=== PATIENT | female | born 1995 | race Caucasian/White ===

== ENCOUNTER 2020-10-14 18:42 | Emergency (ER) | payer MEDICAID, SELFPAY ==
[2020-10-14 18:44] VITALS: BP 155/68; PULSE 101; RESP 16; TEMP 36.8; O2SAT 99; BMI 17.4
--- NOTE | 2020-10-14 19:21 | HMH.EDGENADL ---
ED Disposition Clinical Impression: First trimester bleeding Disposition: Still a Patient Condition on Discharge: Good Referrals: Marcos Brooks APRN [Primary Care Provider] - - Critical Care Critical Care Time: No Attestation: On 10/14/20, the high probability of a clinically significant, sudden or life threatening deterioration of the following system(s) required my full and direct attention, intervention and personal management. The time I documented below is in addition to time spent performing reported procedures but includes the following listed in this critical care notation. Medical Decision Making - Medical Records Medical records reviewed: Yes: I reviewed the patient's medical records. - Rodrigo Inquiry Pt receiving controlled substance: No Vital Signs: 10/14/20 18:44 Temperature 98.3 F Temperature Source Oral Pulse Rate [Right] 101 H Respiratory Rate 16 Blood Pressure [Right Arm] 155/68 H Blood Pressure Mean [Right Arm] 97 Blood Pressure Source [Right Arm] Automatic Cuff 02 Sat by Pulse Oximetry 99 Oxygen Delivery Method Room Air Orders (Tests/Meds): ORDERS Category Date Time Status Complete Blood Count Auto Diff Stat Lab 10/14/20 18:56 Ordered Urinalysis and Microscopic Stat Lab 10/14/20 18:56 Ordered Urine , HCG Qual. Stat Lab 10/14/20 18:56 Ordered Medical Decision Narrative: 25yo F presents the emergency department after 1 episode of painless vaginal bleeding that began immediately prior to her arrival. Patient is in no acute distress, of being somewhat emotional upon arrival. Discussed that I do not have ultrasound at this time of day to which the patient becomes more emotional and states I just want to go home and should have never come here. Her family member encouraged her to remain calm. We will complete basic blood work, urine test and UA. Case will be signed out to oncoming physician at shift change. General Adult HPI - General Chief complaint: Vaginal Bleeding Stated complaint: 8 Wk Preg Bleeding Time Seen by Provider: 10/14/20 19:21 Mode of Arrival: Family Vehicle Limitations: No Limitations Description of Symptoms (Recalled from ER Triage Doc. by RN): Pt states that she is about 8 wks with her 3rd child, and [employer] she was wiping and noticed the tissue was red with pea sized clots. Pt denies any pain, cramping, N/V/D, or recent trauma to ABD. Pt thinks she is A+, she denies receiving any Rhogam injections during her previous pregnancies. - History of Present Illness HPI narrative: 25yo F that believe she is 8 weeks presents the emergency department secondary to painless vaginal bleeding that began just a few moments ago. Patient denies any trauma. She denies any recent illness. Patient reports her previous 2 pregnancies have been uncomplicated with both children being delivered during week 37 spontaneously. - Related Data Previous Rx's Medication Instructions Recorded cephALEXin [Keflex 500mg Cap] 500 mg PO TID #30 cap 11/10/18 Allergies Allergy/AdvReac Type Severity Reaction Status Date / Time No Known Allergies Allergy Verified 12/01/17 17:51 [facility] History - Hepatitis A Screen Drug use history?: No High risk sexual behaviors?: No History of sexually transmitted infection?: No Currently employed?: No Childcare worker?: No Do you have indoor plumbing?: Yes Do you have electricity?: Yes Attestation statement:: This patient has been screened for Hepatitis A risk factors. I have reviewed the patient's past medical history: Yes Medical History: Denies:: Diabetes Mellitus Type 1, Diabetes Mellitus Type 2 - Social History Alcohol Intake: never Occupational Status: employed Family Hx:: Non-contributory ROS Obtained: Yes All systems reviewed & no additional complaints - Genitourinary Male Genitourinary: Reports as per HPI Physical Exam - General General appearance: alert, in no appare
[2020-10-14 20:11] LABS: Microscopic, Urine URINE MICROSCOPIC (MICROSCOPIC)
[2020-10-14 20:16] LABS: Urine Pregnancy, HCG Qual. Positive (Negative)
[2020-10-14 20:17] LABS: Bilirubin,Urine Negative (Negative); Blood, Urine 3+ (Negative); Glucose,Urine (UA) Negative (Negative); Ketones,Urine Negative (Negative); Leukocyte Esterase,Urine 2+ (Negative); Nitrate,Urine Negative (Negative); Protein,Urine TRACE (Negative); Specific Gravity, Urine 1.015 (1.005-1.030); Urobilinogen,Urine 0.2 EU/dl (0.2)
[2020-10-14 20:18] LABS: Appearance,Urine Slightly Cloudy (Clear); Color,Urine Straw (Yellow)
[2020-10-14 20:37] LABS: Bacteria,Urine 1+ /lpf; Mucus,Urine 1+ /lpf
--- NOTE | 2020-10-14 21:33 | PC.NURSE ---
Notified lab on the need for lab draw, order placed at 1207.
[2020-10-14 21:53] LABS: Basophils % 0.5 % (0.1-2.0); Eosinophils # 0.1 K/mm3 (0.0-0.4); Eosinophils % 1.3 % (0.1-12.0); Hematocrit 36.3 % (37.0-47.0); Hemoglobin 11.5 g/dL (12.2-16.2); Lymphocytes # 1.7 K/mm3 (0.7-4.5); Lymphocytes % 20.6 % (10-50); Mean Corpuscular HGB Conc 31.7 g/dL (31.8-35.4); Mean Corpuscular Hemoglobin 25.1 pg (27.0-31.2); Mean Corpuscular Volume 79.2 fl (81-99); Mean Platelet Volume 10.3 fl (7.4-10.4); Monocytes # 0.5 K/mm3 (0.1-1.0); Monocytes % 6.2 % (1.7-9.3); Neutrophils # 5.8 K/mm3 (1.8-7.8); Neutrophils % 71.4 % (37.0-80.0); Platelet Count 201 K/mm3 (142-424); Red Blood Count 4.58 M/mm3 (4.20-5.40); Red Cell Distribution Width 15.2 % (11.5-17.5); White Blood Count 8.1 K/mm3 (4.8-10.8)
[2020-10-14 22:40] VITALS: BP 135/67; PULSE 90; RESP 16; TEMP 36.7; O2SAT 9
== END 2020-10-14 22:41 | disposition home or self-care (01) ==
PROVIDERS: Family Medicine; Emergency Provider Emergency Medicine; PCP Nurse Practitioner Family
DX: O20.9 Hemorrhage in early pregnancy, unspecified (principal); Z3A.08 8 weeks gestation of pregnancy; D64.9 Anemia, unspecified
CPT/HCPCS: 81001; 81025; 85025; 87086; 99282

== ENCOUNTER → 2020-10-15 10:47 | Outpatient (CLI) | payer MEDICAID, SELFPAY ==
[2020-10-16 10:34] LABS: HCG,Quantitative 16561 mIU/ml (0-5.42)
== END ==
PROVIDERS: Visit Provider Obstetrics & Gynecology
DX: Z34.90 Encounter for supervision of normal pregnancy, unspecified, unspecified trimester (principal)
CPT/HCPCS: 36415; 84702

== ENCOUNTER → 2020-10-18 13:54 | Outpatient (CLI) | payer MEDICAID, SELFPAY ==
[2020-10-18 15:09] LABS: HCG,Quantitative 1763 mIU/ml (0-5.42)
== END ==
PROVIDERS: Visit Provider Obstetrics & Gynecology
DX: Z34.90 Encounter for supervision of normal pregnancy, unspecified, unspecified trimester (principal)
CPT/HCPCS: 36415; 84702

== ENCOUNTER → 2020-10-24 11:27 | Outpatient (CLI) | payer MEDICAID, SELFPAY ==
[2020-10-24 13:09] LABS: HCG,Quantitative 150 mIU/ml (0-5.42)
== END ==
PROVIDERS: Visit Provider Obstetrics & Gynecology
DX: O02.1 Missed abortion (principal)
CPT/HCPCS: 36415; 84702

== ENCOUNTER → 2021-09-12 14:06 | Outpatient (CLI) | payer MEDICAID, SELFPAY | PROVIDERS: Visit Provider Obstetrics & Gynecology | DX: N92.6 Irregular menstruation, unspecified (principal) | CPT/HCPCS: 36415; 84702 ==

== ENCOUNTER → 2021-10-22 15:39 | Outpatient (CLI) | payer MEDICAID, SELFPAY ==
[2021-10-22 16:31] LABS: Basophils % 0.3 % (0.1-2.0); Eosinophils # 0.1 K/mm3 (0.0-0.4); Eosinophils % 1.8 % (0.1-12.0); Hematocrit 32.2 % (37.0-47.0); Hemoglobin 10.4 g/dL (12.2-16.2); Lymphocytes # 1.5 K/mm3 (0.7-4.5); Mean Corpuscular HGB Conc 32.3 g/dL (31.8-35.4); Mean Corpuscular Hemoglobin 24.6 pg (27.0-31.2); Mean Corpuscular Volume 76.3 fl (81-99); Mean Platelet Volume 9.7 fl (7.4-10.4); Monocytes # 0.5 K/mm3 (0.1-1.0); Monocytes % 6.4 % (1.7-9.3); Neutrophils # 5.3 K/mm3 (1.8-7.8); Neutrophils % 71.5 % (37.0-80.0); Platelet Count 201 K/mm3 (142-424); Red Blood Count 4.21 M/mm3 (4.20-5.40); Red Cell Distribution Width 15.2 % (11.5-17.5); White Blood Count 7.4 K/mm3 (4.8-10.8)
[2021-10-24 08:15] LABS: HIV Screen 4th Generation wRfx Non Reactive (Non Reactive); Rubella Antibodies, IgG 2.92 index (Immune >0.99)
[2021-10-24 10:18] LABS: Hepatitis B Surface Antigen Negative (Negative); Hepatitis C Antibody <0.1 s/co ratio (0.0-0.9)
[2021-10-24 11:28] LABS: Rapid Plasma Reagin Ab Titer Non Reactive (NonRea<1:1)
== END ==
PROVIDERS: Visit Provider Obstetrics & Gynecology
DX: Z34.90 Encounter for supervision of normal pregnancy, unspecified, unspecified trimester (principal)
CPT/HCPCS: 36415; 85025; 86592; 86703; 86762; 86850; 87340; 87380; G0432

== ENCOUNTER → 2021-10-28 14:23 | Outpatient (CLI) | payer MEDICAID, SELFPAY | PROVIDERS: Visit Provider Obstetrics & Gynecology | DX: Z31.430 Encounter of female for testing for genetic disease carrier status for procreative management (principal); Z36.0 Encounter for antenatal screening for chromosomal anomalies; O28.3 Abnormal ultrasonic finding on antenatal screening of mother | CPT/HCPCS: 36415 ==

== ENCOUNTER 2021-11-19 19:46 | Emergency (ER) | payer MEDICAID, SELFPAY ==
[2021-11-19 19:47] VITALS: BP 120/74; PULSE 122; RESP 20; TEMP 37.7; O2SAT 100; BMI 14.8
--- NOTE | 2021-11-19 20:43 | PC.NURSE ---
Pt complains of severe pain, RN notified.
[2021-11-19 20:44] LABS: Microscopic, Urine URINE MICROSCOPIC (MICROSCOPIC)
--- NOTE | 2021-11-19 20:44 | HMH.EDGENADL ---
ED Disposition Clinical Impression: UTI (urinary tract infection) Disposition: Home, Self-Care Condition on Discharge: Fair Instructions: DI for Urinary Tract Infection (UTI) Additional Instructions: Please call and schedule an appointment to follow-up with your OB in 2 days. Take your medication as prescribed. If new or worsening symptoms do not hesitate to return to the emergency department. Prescriptions: Nitrofurantoin Monohyd/M-Cryst [Macrobid 100 mg Capsule] 100 mg PO BID 7 Days #14 cap Transmission Status: Received by [id number] Referrals: Rohan Rollins MD [Primary Care Provider] - - Critical Care Critical Care Time: No Attestation: On 11/19/21, the high probability of a clinically significant, sudden or life threatening deterioration of the following system(s) required my full and direct attention, intervention and personal management. The time I documented below is in addition to time spent performing reported procedures but includes the following listed in this critical care notation. Medical Decision Making - Medical Records Medical records reviewed: Yes: I reviewed the patient's medical records. - Rodrigo Inquiry Pt receiving controlled substance: No Vital Signs: 11/19/21 19:47 11/19/21 22:21 Temperature 99.8 F H 98.2 F Temperature Source Oral Oral Pulse Rate 118 H Pulse Rate [Right] 122 H Respiratory Rate 20 18 Blood Pressure 120/72 Blood Pressure [Right Arm] 120/74 Blood Pressure Mean [Right Arm] 89 Blood Pressure Source Automatic Cuff Blood Pressure Position Sitting 02 Sat by Pulse Oximetry 100 Oxygen Delivery Method Room Air - Lab Data Lab Results 11/19/21 20:03: Urine Color Yellow, Urine Appearance Clear, Urine pH 6.0, Ur Specific [place] <= 1.005, Urine Protein Negative, Urine Glucose (UA) Negative, Urine Ketones 1+, Urine Blood Negative, Urine Nitrate Negative, Urine Bilirubin Negative, Urine Urobilinogen 0.2, Ur Leukocyte Esterase 2+ A, Urine RBC None, Urine WBC 5-10, Ur Squamous Epith Cells 5-10, Urine Bacteria 1+ 11/19/21 21:05: WBC 4.5 L, RBC 3.58 L, Hgb 9.2 L, Hct 28.8 L, MCV 80.4 L, MCH 25.8 L, MCHC 32.1, RDW 16.0, Plt Count 138 L, MPV 11.8 H, Neut % (Auto) 84.0 H, Lymph % (Auto) 5.8 L, [place] % (Auto) 8.8, Eos % (Auto) 0.7, Baso % (Auto) 0.8, Neut # (Auto) 3.8, Lymph # (Auto) 0.3 L, [place] # (Auto) 0.4, Eos # (Auto) 0.0, Baso # (Auto) 0.0 11/19/21 21:05: Sodium 133 L, Potassium 3.4 L, Chloride 101, Carbon Dioxide 23, Anion Gap 12.4, BUN 4 L, Creatinine 0.50 L, Estimated Creat Clear 127, Estimated GFR 147, Est GFR ( Amer) 178, Glucose 97, Calcium 9.3 Result diagrams: 11/19/21 21:05 11/19/21 21:05 Orders (Tests/Meds): ED MEDICATIONS Discontinued Medications Generic Name Dose Route Start Last Admin Trade Name Freq PRN Reason Stop Dose Admin Acetaminophen 650 mg 11/19/21 20:37 11/19/21 20:48 Acetaminophen 325mg Tab PO 11/19/21 20:38 650 mg ONCE ONE Administration Nitrofurantoin Macrocrystals 100 mg 11/19/21 21:41 11/19/21 21:44 Nitrofurantoin 100mg Capsule PO 11/19/21 21:42 100 mg ONCE ONE Administration ORDERS Category Date Time Status Urine Culture Stat Micro 11/19/21 20:03 Received Medical Decision Narrative: In summary this is a 18-year-old female who is currently 15 weeks who presents emergency department for evaluation of low back pain. Was are consistent with her previous urinary tract infections that she does not state that she has dysuria. Patient is hemodynamically stable nontoxic-appearing upon arrival, afebrile, tachycardic heart rate 110-120 bpm. Stable heart rate on Doppler. differential diagnosis includes urinary tract infection, among others. Patient denies vaginal bleeding, vaginal discharge and has a documented intrauterine therefore ultrasound will be deferred. Will be conducted with hematologic labs, urinalysis. Initial interventions include acetaminophen.
[2021-11-19 20:55] LABS: Appearance,Urine CLEAR (Clear); Bilirubin,Urine Negative (Negative); Blood, Urine Negative (Negative); Color,Urine YELLOW (Yellow); Glucose,Urine (UA) Negative (Negative); Ketones,Urine 1+ (Negative); Leukocyte Esterase,Urine 2+ (Negative); Nitrate,Urine Negative (Negative); Protein,Urine Negative (Negative); Specific Gravity, Urine <= 1.005 (1.005-1.030); Urobilinogen,Urine 0.2 EU/dl (0.2)
[2021-11-19 21:05] LABS: Bacteria,Urine 1+ /lpf
[2021-11-19 21:17] LABS: Basophils % 0.8 % (0.1-2.0); Eosinophils % 0.7 % (0.1-12.0); Hematocrit 28.8 % (37.0-47.0); Hemoglobin 9.2 g/dL (12.2-16.2); Lymphocytes # 0.3 K/mm3 (0.7-4.5); Lymphocytes % 5.8 % (10-50); Mean Corpuscular HGB Conc 32.1 g/dL (31.8-35.4); Mean Corpuscular Hemoglobin 25.8 pg (27.0-31.2); Mean Corpuscular Volume 80.4 fl (81-99); Mean Platelet Volume 11.8 fl (7.4-10.4); Monocytes # 0.4 K/mm3 (0.1-1.0); Monocytes % 8.8 % (1.7-9.3); Neutrophils # 3.8 K/mm3 (1.8-7.8); Platelet Count 138 K/mm3 (142-424); Red Blood Count 3.58 M/mm3 (4.20-5.40); White Blood Count 4.5 K/mm3 (4.8-10.8)
[2021-11-19 21:27] LABS: Anion Gap 12.4 mEq/L (5-15); Blood Urea Nitrogen 4 mg/dl (7-17); Calcium 9.3 mg/dl (8.4-10.2); Carbon Dioxide 23 mmol/L (22.0-30.0); Chloride 101 mmol/L (98-107); Creatinine Clearance Estimated 127 mL/min (50-200); Estimated Glomerular Filt Rate 147 ml/min (>60); GFR (African American) 178 ML/MIN (>60); Glucose 97 mg/dl (74-100); Potassium 3.4 mmoL/L (3.5-5.1); Sodium 133 mmol/L (136-145)
[2021-11-19 22:21] VITALS: BP 120/72; PULSE 118; RESP 18; TEMP 36.8; O2SAT 99
== END 2021-11-19 22:24 | disposition home or self-care (01) ==
PROVIDERS: Emergency Provider Emergency Medicine; PCP Emergency Medicine
DX: O26.892 Other specified pregnancy related conditions, second trimester (principal); N39.0 Urinary tract infection, site not specified; Z3A.15 15 weeks gestation of pregnancy
CPT/HCPCS: 80048; 81001; 85025; 87086; 99283

== ENCOUNTER → 2021-12-26 12:45 | Outpatient (CLI) | payer MEDICAID, SELFPAY ==
--- NOTE | 2021-12-26 12:57 | US_ITS ---
FINAL REPORT CLINICAL HISTORY: 20 week anatomy scan; stomach not seen in 30 min exam, anatomy otherwise normal FINDINGS: There is a single live intrauterine gestation. Presentation is breech. The cervix is closed and measures 5.5 cm. Placenta is anterior and grade 1. Cardiac activity is confirmed at 149 bpm. The fetus is active. Three-vessel cord with satisfactory umbilical cord insertion. Four-chamber heart is noted. brain and ventricles are unremarkable. Chest and diaphragm are unremarkable. ABDOMEN: Both kidneys are unremarkable. Stomach is not identified over the course of this study. SPINE: No anomalies identified. Both arms and legs noted. AMNIOTIC FLUID: Appropriate amount. MEASUREMENTS: ULTRASOUND AGE: 20 weeks 3 days. GESTATION AGE: 20 weeks 5 days. ESTIMATED WEIGHT: 345 g GROWTH PERCENTILE: 25% BPD: 4.9 cm consistent with 20 weeks 5 days. OFD: 6.1 cm consistent with 20 weeks 5 days. HC: 17.4 cm consistent with 20 weeks 0 days. AC: 15.2 cm consistent with 20 weeks 4 days. FL: 3.3 cm consistent with 20 weeks 2 days. CEREBELLUM: 2 cm consistent with 20 weeks 5 days. HUMERUS: 3.1 cm consistent with 20 weeks 2 days. HC/AC: 1.14 CI: 79% FL/BPD: 67% FL/AC: 21% IMPRESSION: Single living IUP with an ultrasound age of 20 weeks 3 days. Stomach not visualized over the course of the exam. Consider follow-up. Reviewed, Interpreted and Dictated by Darin Marte III, MD Transcribed by Kayode Correa Authenticated and [facility]
== END ==
PROVIDERS: PCP Emergency Medicine; Visit Provider Obstetrics & Gynecology
DX: Z34.90 Encounter for supervision of normal pregnancy, unspecified, unspecified trimester (principal); Z3A.20 20 weeks gestation of pregnancy
CPT/HCPCS: 76811

== ENCOUNTER → 2022-01-13 14:36 | Outpatient (CLI) | payer MEDICAID, SELFPAY ==
--- NOTE | 2022-01-13 14:36 | US_ITS ---
FINAL REPORT CLINICAL HISTORY: fu to anatomy scan -- stomach not vis FINDINGS: There is a single live intrauterine gestation. Presentation is cephalic. The placenta has a somewhat unusual appearance and may contain venous lakes and prominent vessels. The retroplacental hypoechoic interface is not clearly seen. Cardiac activity is confirmed at 149 bpm. The cervix measures 3.2 cm. The feet are noted. MEASUREMENTS: ULTRASOUND AGE: 23 weeks 2 days. GESTATION AGE: 23 weeks 2 days. IMPRESSION: Single living IUP with an ultrasound age of 23 weeks 2 days. Abnormal appearance of the placenta as described concerning for placenta accreta. Recommend careful OB follow-up. Reviewed, Interpreted and Dictated by Richard Cabrera MD Transcribed by Kayode Correa Authenticated and [facility]
== END ==
PROVIDERS: PCP Emergency Medicine; Visit Provider Obstetrics & Gynecology
DX: Z34.90 Encounter for supervision of normal pregnancy, unspecified, unspecified trimester (principal); Z3A.20 20 weeks gestation of pregnancy
CPT/HCPCS: 76816

== ENCOUNTER → 2022-02-25 13:39 | Outpatient (CLI) | payer MEDICAID, SELFPAY ==
[2022-02-25 14:13] LABS: Basophils # 0.1 K/mm3 (0-0.2); Basophils % 0.5 % (0.1-2.0); Eosinophils # 0.3 K/mm3 (0.0-0.4); Eosinophils % 3.1 % (0.1-12.0); Hematocrit 26.8 % (37.0-47.0); Hemoglobin 8.4 g/dL (12.2-16.2); Lymphocytes # 1.8 K/mm3 (0.7-4.5); Mean Corpuscular HGB Conc 31.3 g/dL (31.8-35.4); Mean Corpuscular Hemoglobin 24.4 pg (27.0-31.2); Mean Corpuscular Volume 77.7 fl (81-99); Mean Platelet Volume 9.9 fl (7.4-10.4); Monocytes # 0.8 K/mm3 (0.1-1.0); Monocytes % 8.6 % (1.7-9.3); Neutrophils # 5.8 K/mm3 (1.8-7.8); Neutrophils % 66.6 % (37.0-80.0); Platelet Count 220 K/mm3 (142-424); Red Blood Count 3.44 M/mm3 (4.20-5.40); Red Cell Distribution Width 15.7 % (11.5-17.5); White Blood Count 8.7 K/mm3 (4.8-10.8)
== END ==
PROVIDERS: PCP Emergency Medicine; Visit Provider Obstetrics & Gynecology
DX: Z34.90 Encounter for supervision of normal pregnancy, unspecified, unspecified trimester (principal); Z3A.17 17 weeks gestation of pregnancy
CPT/HCPCS: 36415; 85025

== ENCOUNTER → 2022-03-09 10:16 | Outpatient (CLI) | payer MEDICAID, SELFPAY ==
--- NOTE | 2022-03-09 10:17 | US_ITS ---
FINAL REPORT CLINICAL HISTORY: sga with FRANCINE COMPARISON: 01/13/2022 FINDINGS: TRANSABDOMINAL ULTRASOUND There is a single live intrauterine gestation. Presentation is cephalic. The cervix is closed and measures 3.2 cm. Placenta is similar in appearance to the prior exam which may be due to venous lakes and prominent vessels. Cardiac activity is confirmed at 149 bpm. FRANCINE: 9.9 cm MEASUREMENTS: GESTATION AGE: 31 weeks 1 days. ESTIMATED WEIGHT: Not given. BREATHIN/2 MOVEMENT: 2/2 TONE: 2/2 FLUID VOLUME: 2/2 BPP SCORE: 8/8 IMPRESSION: Single living IUP with a gestational age of 31 weeks 1 days. Placenta is similar in appearance to the previous exam. BPP SCORE: 8/8 FRANCINE: 9.9 cm Reviewed, Interpreted and Dictated by Richard Cabrera MD Transcribed by Beckie Lindsey Authenticated and [facility]
== END ==
PROVIDERS: PCP Emergency Medicine; Visit Provider Obstetrics & Gynecology
DX: O36.5990 Maternal care for other known or suspected poor fetal growth, unspecified trimester, not applicable or unspecified (principal)
CPT/HCPCS: 76819

== ENCOUNTER 2022-03-12 12:40 | Outpatient (CLI) | payer MEDICAID, SELFPAY ==
[2022-03-12 13:06] VITALS: BP 110/68; PULSE 72; RESP 18; O2SAT 100
[2022-03-12 13:40] VITALS: BP 115/72; PULSE 71; RESP 18; O2SAT 100
== END 2022-03-12 13:40 | disposition home or self-care (01) ==
LOC: INF 12:41
PROVIDERS: PCP Physician Assistant; Visit Provider Obstetrics & Gynecology
DX: D64.9 Anemia, unspecified (principal)
CPT/HCPCS: 96365; J1756

== ENCOUNTER 2022-03-18 13:03 | Outpatient (CLI) | payer MEDICAID, SELFPAY ==
[2022-03-18 13:30] VITALS: BP 121/73; PULSE 72; RESP 18; O2SAT 99
[2022-03-18 14:15] VITALS: BP 120/71; PULSE 76; RESP 18; O2SAT 99
== END 2022-03-18 14:15 | disposition home or self-care (01) ==
LOC: INF 13:03
PROVIDERS: PCP Physician Assistant; Visit Provider Obstetrics & Gynecology
DX: D64.9 Anemia, unspecified (principal)
CPT/HCPCS: 96365; J1756

== ENCOUNTER 2022-03-25 13:24 | Outpatient (CLI) | payer MEDICAID, SELFPAY ==
[2022-03-25 13:52] VITALS: BP 138/77; PULSE 81; RESP 18; TEMP 36.6; O2SAT 98
[2022-03-25 14:35] VITALS: BP 141/72; PULSE 77; RESP 18; O2SAT 98
== END 2022-03-25 14:49 | disposition home or self-care (01) ==
LOC: INF 13:24
PROVIDERS: PCP Physician Assistant; Visit Provider Obstetrics & Gynecology
DX: D64.9 Anemia, unspecified (principal)
CPT/HCPCS: 96365; J1756

== ENCOUNTER 2022-04-08 20:43 | Outpatient (CLI) | payer MEDICAID, SELFPAY ==
[2022-04-08 20:51] VITALS: BMI 25.6
[2022-04-08 21:10] VITALS: BP 131/79; PULSE 110; RESP 18; TEMP 36.9; O2SAT 98; BMI 25.6
[2022-04-08 21:37] LABS: Microscopic, Urine URINE MICROSCOPIC (MICROSCOPIC)
[2022-04-08 21:52] LABS: Appearance,Urine CLEAR (Clear); Bilirubin,Urine Negative (Negative); Blood, Urine 1+ (Negative); Color,Urine YELLOW (Yellow); Glucose,Urine (UA) Negative (Negative); Ketones,Urine Negative (Negative); Leukocyte Esterase,Urine TRACE (Negative); Nitrate,Urine Negative (Negative); PH,Urine 6.5 (5.0-8.5); Protein,Urine Negative (Negative); Specific Gravity, Urine 1.015 (1.005-1.030); Urobilinogen,Urine 0.2 EU/dl (0.2)
[2022-04-08 22:08] LABS: Amphetamine/Metha Screen,Urine Negative ng/ml (<1000)
[2022-04-08 22:09] LABS: Barbiturates Screen,Urine Negative ng/ml (<200); Benzodiazepines Screen,Urine Negative ng/ml (<200)
[2022-04-08 22:10] LABS: Cannabinoid Screen,Urine Negative ng/ml (<50)
[2022-04-08 22:11] LABS: Cocaine Screen,Urine Negative ng/ml (<300); Methadone Screen,Urine Negative ng/ml (<300)
[2022-04-08 22:12] LABS: Opiate Screen,Urine Negative ng/ml (<300); Phencyclidine Screen,Urine Negative ng/ml (<25)
[2022-04-08 22:20] LABS: RBC,Urine Occasional #/hpf (0-3); Squamous Epithelial Cell,Urine Occasional #/hpf (0-5); WBC,Urine Occasional #/hpf (0-3)
== END 2022-04-08 22:08 | disposition home or self-care (01) ==
LOC: OBOUT 20:49 → OB 20:49
PROVIDERS: PCP Physician Assistant; Visit Provider Obstetrics & Gynecology
DX: O26.893 Other specified pregnancy related conditions, third trimester (principal); Z3A.35 35 weeks gestation of pregnancy
CPT/HCPCS: 59025; 80305; 81001; G0463

== ENCOUNTER → 2022-04-09 03:45 | Outpatient (CLI) | payer MEDICAID, SELFPAY | PROVIDERS: PCP Obstetrics & Gynecology; Visit Provider Obstetrics & Gynecology | DX: Z34.90 Encounter for supervision of normal pregnancy, unspecified, unspecified trimester (principal) ==

== ENCOUNTER 2022-04-09 16:15 | Outpatient (CLI) | payer MEDICAID, SELFPAY ==
[2022-04-09 16:36] VITALS: BMI 25.2
--- NOTE | 2022-04-09 16:36 | US_ITS ---
PROCEDURE INFORMATION: Exam: US Biophysical Profile Without Non-Stress Test Exam date and time: 04/09/2022 5:15 PM Age: 27 years old Clinical indication: status abnormalities: ; Abnormal heart rate; Single gestation; Third trimester (=28 weeks 0 days); ; Patient HX: Decels on stress test-- PT going to care; Additional info: Deceleration TECHNIQUE: Imaging protocol: US biophysical profile without non-stress testing. COMPARISON: US OB /MATERNAL DETAIL 12/26/2021 1:08 PM FINDINGS: BIOPHYSICAL PROFILE: breathing movement (BPP): 2 out of 2. body movement (BPP): 2 out of 2. tone (BPP):[2 out of 2. Amniotic fluid (BPP): 2 out of 2. IMPRESSION: Biophysical profile score is 8 out of 8.
[2022-04-09 16:51] VITALS: BP 141/87; PULSE 87; RESP 20; TEMP 36.6; O2SAT 99; BMI 25.2
== END 2022-04-09 17:45 | disposition home or self-care (01) ==
LOC: OBOUT 16:20 → OB 16:22
PROVIDERS: PCP Obstetrics & Gynecology; Visit Provider Obstetrics & Gynecology
DX: O47.03 False labor before 37 completed weeks of gestation, third trimester (principal); Z3A.35 35 weeks gestation of pregnancy
CPT/HCPCS: 59025; 76819; 86403; G0463

== ENCOUNTER 2022-04-11 16:42 | Outpatient (CLI) | payer MEDICAID, SELFPAY ==
[2022-04-11 17:08] VITALS: BP 125/85; PULSE 88; RESP 18; TEMP 36.9; O2SAT 99; BMI 25.2
[2022-04-11 18:07] LABS: POC Glucose,Bedside 92 (70-110)
== END 2022-04-11 18:15 | disposition home or self-care (01) ==
LOC: OBOUT 16:45 → OB 16:46
PROVIDERS: PCP Physician Assistant; Visit Provider Obstetrics & Gynecology
DX: O36.8130 Decreased fetal movements, third trimester, not applicable or unspecified (principal); Z3A.35 35 weeks gestation of pregnancy
CPT/HCPCS: 59025; 82962; G0463

== ENCOUNTER 2022-04-12 19:38 | Outpatient (CLI) | payer MEDICAID, SELFPAY ==
[2022-04-12 19:44] VITALS: BMI 25.2
[2022-04-12 20:00] VITALS: BP 128/75; PULSE 88; RESP 18; TEMP 36.9; O2SAT 98; BMI 25.2
[2022-04-12 20:07] LABS: Microscopic, Urine URINE MICROSCOPIC (MICROSCOPIC)
[2022-04-12 20:12] LABS: Appearance,Urine CLEAR (Clear); Bilirubin,Urine Negative (Negative); Blood, Urine Negative (Negative); Color,Urine YELLOW (Yellow); Glucose,Urine (UA) Negative (Negative); Ketones,Urine Negative (Negative); Leukocyte Esterase,Urine Negative (Negative); Nitrate,Urine Negative (Negative); PH,Urine 6.5 (5.0-8.5); Protein,Urine Negative (Negative); Urobilinogen,Urine 0.2 EU/dl (0.2)
[2022-04-12 20:20] LABS: Fetal Membrane Rupture (Rapid) Negative (Negative)
[2022-04-12 20:23] LABS: Barbiturates Screen,Urine Negative ng/ml (<200); Benzodiazepines Screen,Urine Negative ng/ml (<200)
[2022-04-12 20:24] LABS: Amphetamine/Metha Screen,Urine Negative ng/ml (<1000); WBC,Urine Occasional #/hpf (0-3)
[2022-04-12 20:25] LABS: Cannabinoid Screen,Urine Negative ng/ml (<50); Methadone Screen,Urine Negative ng/ml (<300)
[2022-04-12 20:26] LABS: Cocaine Screen,Urine Negative ng/ml (<300)
[2022-04-12 20:27] LABS: Opiate Screen,Urine Negative ng/ml (<300); Phencyclidine Screen,Urine Negative ng/ml (<25)
== END 2022-04-12 20:50 | disposition home or self-care (01) ==
LOC: OBOUT 19:39 → OB 19:41
PROVIDERS: PCP Physician Assistant; Visit Provider Obstetrics & Gynecology
DX: O41.90X0 Disorder of amniotic fluid and membranes, unspecified, unspecified trimester, not applicable or unspecified (principal); Z3A.36 36 weeks gestation of pregnancy
CPT/HCPCS: 59025; 80305; 81001; 84112; G0463

== ENCOUNTER → 2023-03-31 15:31 | Outpatient (CLI) | payer MEDICAID, SELFPAY ==
--- NOTE | 2023-03-31 15:39 | XR_ITS ---
PROCEDURE INFORMATION: Exam: XR Entire Spine Exam date and time: 03/31/2023 4:15 PM Age: 28 years old Clinical indication: Low back pain TECHNIQUE: Imaging protocol: XR of the entire spine. Evaluation for scoliosis or surgical evaluation. Views: 2 or 3 views. COMPARISON: ABDPELWO CT abdomen pelvis wo con 12/01/2017 6:51 PM FINDINGS: Bones/joints: Normal. No acute fracture. Normal alignment. No scoliosis. IMPRESSION: Unremarkable spine.
== END ==
PROVIDERS: PCP Physician Assistant; Visit Provider Physician Assistant
DX: M41.9 Scoliosis, unspecified (principal)
CPT/HCPCS: 72081

== ENCOUNTER 2024-01-07 12:01 | Outpatient (CLI) | payer MEDICAID, SELFPAY ==
[2024-01-07 13:14] LABS: HCG,Quantitative 1148 mIU/ml (0-5.42)
[2024-01-08 09:57] LABS: Progesterone 16.4 ng/mL (.)
== END 2024-01-07 23:59 | disposition home or self-care (01) ==
LOC: LAB 12:02
PROVIDERS: Visit Provider Obstetrics & Gynecology
DX: Z34.90 Encounter for supervision of normal pregnancy, unspecified, unspecified trimester (principal)
CPT/HCPCS: 36415; 84144; 84702

== ENCOUNTER 2024-04-06 15:26 | Outpatient (CLI) | payer MEDICAID, SELFPAY ==
--- NOTE | 2024-04-06 15:28 | XR_ITS ---
FINAL REPORT CLINICAL HISTORY: asthma. soa. FINDINGS: CHEST 2 VIEWS PA AND LATERAL The heart is normal in size. The mediastinum is unremarkable. There is mild bronchial wall thickening consistent with bronchitis. There is no pneumothorax. IMPRESSION: Bronchitis. Reviewed, Interpreted and Dictated by Darin Marte III, MD Transcribed by Sol Huber Authenticated and [facility]
== END 2024-04-06 23:59 | disposition home or self-care (01) ==
LOC: RAD 15:26
PROVIDERS: PCP Nurse Practitioner Family; Visit Provider Nurse Practitioner Family
DX: J45.20 Mild intermittent asthma, uncomplicated (principal)
CPT/HCPCS: 71046

== ENCOUNTER 2024-06-11 21:39 | Emergency (ER) | payer MEDICAID, SELFPAY ==
[2024-06-11 21:40] VITALS: BP 122/57; PULSE 84; RESP 16; TEMP 37.1; O2SAT 99; BMI 21.7
--- NOTE | 2024-06-11 22:18 | XR_ITS ---
PROCEDURE INFORMATION: Exam: XR Left Knee Exam date and time: 06/11/2024 10:28 PM Age: 29 years old Clinical indication: Injury or trauma; Fall; Blunt trauma; Knee; Left TECHNIQUE: Imaging protocol: Radiologic exam of the left knee. Views: 3 views. COMPARISON: No relevant prior studies available. FINDINGS: Bones/joints: Alignment is normal. No appreciable degenerative changes. No acute fracture or joint effusion. Soft tissues: Normal. IMPRESSION: No acute findings.
--- NOTE | 2024-06-11 22:31 | PC.NURSE ---
pt refusing XR of the elbow, agreeing to knee XR. Provider aware and radiology at the bedside.
--- NOTE | 2024-06-11 22:37 | HMH.EDGENADL ---
Discharge Plan Disposition Patient Disposition: Home, Self-Care Chief Complaint: PAIN Prescriptions Prescriptions: No Action albuterol sulfate 90 mcg/actuation HFA aerosol inhaler 2 puff inhalation Q4-6H PRN (Reason: shortness of breath or wheezing) Qty: 6.7 1RF albuterol sulfate 2.5 mg /3 mL (0.083 %) solution for nebulization 2.5 mg inhalation Q4-6H PRN (Reason: shortness of breath or wheezing) Qty: 75 1RF amitriptyline 10 mg tablet 10 mg PO DAILY Qty: 30 2RF fluticasone propionate 110 mcg/actuation HFA aerosol inhaler 2 puff inhalation BID Qty: 12 1RF Rx Instructions: administer with spacer Referrals Follow up/Referrals: Ashley Crowley APRN [Primary Care Provider] - See instructions Aneesh Sharma DO [Staff Physician] - See instructions Activity Restrictions/Add. Instructions Additional Instructions/Restrictions: At this time it was felt you are safe to be discharged home. If new or worsening symptoms please do not hesitate to return the emergency department. Please bear weight as tolerated and use rest, ice, Tylenol and ibuprofen. If symptoms persist beyond 1 week please call and schedule appoint with Dr. Sharma for continued evaluation. Clinical Impressions Clinical Impression: Knee pain, left, Traumatic bursitis Print Language Print Language: Croatian Discharge ED Provider: Ray Lockhart General Adult HPI General Chief complaint: PAIN Stated complaint: AO 06/10/24 10:00 injury right knee,R elbow Time Seen by Provider: 06/11/24 21:51 Mode of Arrival: Ambulatory Source of Information: Patient Limitations: No Limitations Description of Symptoms (Recalled from ER Triage Doc. by RN): Pt presents to ED for L elbow and L knee pain after a fall yesterday at approx 10 am. Pt rates pain 2/10 while laying and 7/10 when moving. Pt is A&O*4 and has no other complaints at this time. History of Present Illness HPI narrative: Patient is a 29-year-old female no pertinent past medical history no bleeding diathesis who presents emergency department for evaluation of traumatic elbow and knee pain. Patient slipped on a tablet that was left in the floor yesterday landing on her left knee and elbow. No other trauma no loss of consciousness. She has had pain over her left knee with bruising and has been able to bear weight with difficulty causing her to become concerned and presented for evaluation. She does not currently have any elbow pain and is not concerned about her elbow. No other acute complaints at this time. Related Data Previous Rx's ?Medication ?Instructions ?Recorded albuterol sulfate 2.5 mg/3 mL 2.5 mg (3 mL) inhalation Q4-6H PRN 04/05/24 (0.083 %) solution for nebulization shortness of breath or wheezing #75 mL albuterol sulfate 90 mcg/actuation 2 puff inhalation Q4-6H PRN 04/05/24 aerosol inhaler shortness of breath or wheezing #6.7 grams amitriptyline 10 mg tablet 10 mg PO DAILY #30 tabs 05/15/24 fluticasone propionate 110 2 puff inhalation BID #12 grams 05/15/24 mcg/actuation HFA aerosol inhaler Allergies Allergy/AdvReac Type Severity Reaction Status Date / Time nitrofurantoin (From AdvReac shaking Verified 05/15/24 14:40 Macrobid) and shortness of breath [facility] Disclaimer: The information contained in this section may have been updated after the patient was seen, as this information can be updated by other users. Medical History ventricular septal defect in , antepartum, single gestation IUGR (intrauterine growth restriction) Restless legs Scoliosis Family History Other Cancer Diabetes Hypertension Stroke Social History Smoking Status: Unknown if ever smoked alcohol intake: never substance use type: denies use current occupational status: unemployed Travel in the last 8 weeks: None Have you lived/traveled outside [place] in past 30 days?: No Contact w/someone who lives/traveled outside US past 30 days?: No Exposure to someone with infectious disease in past 14 days?: No Do you have a fever (greater than 100.4 F or 38 C)?: No Have you tested positive for COVID-19: No Exposed to someone with COVID-19 in past 14 days?: No Do you have a sore throat?: No Do you have a cough?: No Do you have any weakness?: No Do you have any diarrhea?: No Are you experiencing any unusual bleeding?: No Do you have any muscle aches/pain?: No Do you have any abdominal pain?: No Are you experiencing loss of taste or smell?: No Other Medical History Have you received the Flu Vaccine for this season: No Have you received the Pneumonia Vaccine: No ROS Obtained: Yes Systems reviewed as appropriate & no additional complaints except as documented Physical Exam General General appearance: alert and in no apparent distress Head Head exam: atraumatic and normocephalic Eye Eye exam: Present PERRL ENT ENT exam: Present mucous membranes moist Neck Neck exam: Present normal inspection Chest Chest inspection: Present normal inspection and symmetric chest wall rise Respiratory Respiratory exam: Absent respiratory distress Cardiovascular Cardiovascular exam: Present regular rate and normal rhythm Extremities Exam Extremities exam: Present other (Full active and passive range of motion at the left elbow without tenderness. Bruising overlying the left knee, extensor mechanism intact, palpable dorsal pedal pulse distally. 5 out of 5 strength at the knee in extension and ankle in flexion.) Neurological Exam Neurological exam: Present alert Psychiatric Psychiatric exam: Present normal affect Skin Skin exam: Present warm and dry Medical Decision Making Medical Records Screening: Per USPSTF and CDC recommendations, given the prevalence of disease in our region, it is our hospital?s policy to screen for HIV and viral Hepatitis for all patients aged 18 and over and those with ongoing risk factors. Rodrigo Inquiry Pt receiving controlled substance: No Vital Signs: 06/11/24 21:40 Temperature 98.7 F Temperature Source Oral Pulse Rate [Left] 84 Respiratory Rate 16 Blood Pressure [Right Arm] 122/57 L Blood Pressure Mean [Right Arm] 78 02 Sat by Pulse Oximetry 99 Oxygen Delivery Method Room Air Orders (Tests/Meds): ED MEDICATIONS Generic Name Dose Route Start Last Admin Trade Name Freq PRN Reason Stop Dose Admin Acetaminophen 650 mg 06/11/24 22:39 Acetaminophen 325mg Tab PO 06/11/24 22:40 ONCE ONE ORDERS Category Date Time Status Knee XR left 3 views [XR knee LT 3V] Stat Exams 06/11/24 22:18 Taken Medical Decision Narrative: In summary patient is a 29-year-old female past medical history described above who presents emergency department for evaluation of traumatic knee pain. Patient is hemodynamically stable nontoxic-appearing upon arrival, afebrile. Differential diagnosis includes fracture, musculoskeletal strain, traumatic bursitis, among others. With respect to her left elbow shared decision making discussion was had she has full range of motion and does not want an x-ray will be deferred at this time. With respect to her knee workup we conducted with plain film. Initial inventions include Tylenol and ibuprofen. Plain film of the left knee informally interpreted by me, no acute displaced fracture or dislocation. Given this patient will be given crutches for comfort and is appropriate for outpatient management at this time. Critical Care Critical Care Time Critical Care Time: No
[2024-06-11] MEDS: IBUPROFEN 400 MG TABLET PO (22:50)
[2024-06-11] MEDS: ACETAMINOPHEN 325MG TAB 650 MG PO (22:50)
[2024-06-11 22:57] VITALS: BP 122/71; PULSE 74; RESP 14; TEMP 36.6; O2SAT 100
== END 2024-06-11 22:58 | disposition home or self-care (01) ==
PROVIDERS: Emergency Provider Emergency Medicine; PCP Nurse Practitioner Family
DX: M71.562 Other bursitis, not elsewhere classified, left knee (principal); M25.562 Pain in left knee; M25.522 Pain in left elbow; W01.0XXA Fall on same level from slipping, tripping and stumbling without subsequent striking against object, initial encounter; Y93.89 Activity, other specified; Y92.9 Unspecified place or not applicable
CPT/HCPCS: 73562; 99283

== ENCOUNTER 2024-07-31 13:49 | Outpatient (CLI) | payer MEDICAID, SELFPAY ==
--- NOTE | 2024-07-31 13:51 | XR_ITS ---
FINAL REPORT TECHNIQUE: Lumbar spine 3 views CLINICAL HISTORY: chronic lower back pain nki pain has gotten worse and radiates into the rt knee COMPARISON: None FINDINGS: AP and lateral views of the lumbar spine were obtained. There is no prior exam for comparison. There is no acute fracture or malalignment. Vertebral body height is preserved. Disc space height is preserved. No acute paraspinal abnormality. IMPRESSION: Unremarkable lumbar spine series. Reviewed, Interpreted and Dictated by Richard Cabrera MD Transcribed by Katie Collins Authenticated and . [facility]
== END 2024-07-31 23:59 | disposition home or self-care (01) ==
LOC: RAD 13:49
PROVIDERS: PCP Nurse Practitioner Family; Visit Provider Nurse Practitioner Family
DX: M54.50 Low back pain, unspecified (principal)
CPT/HCPCS: 72100

== ENCOUNTER 2024-09-06 16:00 | Outpatient (CLI) | payer MEDICAID, SELFPAY ==
[2024-09-06 19:27] LABS: HCG,Quantitative 326620 mIU/ml (0-5.42)
[2024-09-07 09:02] LABS: Progesterone 18.7 ng/mL (.)
== END 2024-09-06 23:59 | disposition home or self-care (01) ==
LOC: LAB 16:00
PROVIDERS: PCP Nurse Practitioner Family; Visit Provider Obstetrics & Gynecology
DX: Z32.01 Encounter for pregnancy test, result positive (principal)
CPT/HCPCS: 36415; 84144; 84702

== ENCOUNTER 2024-09-07 15:46 | Outpatient (CLI) | payer MEDICAID, SELFPAY ==
[2024-09-07 17:31] LABS: Basophils % 0.5 % (0.1-2.0); Eosinophils # 0.2 Kmm3 (0.0-0.4); Eosinophils % 2.3 % (0.1-12.0); Hematocrit 29.3 % (37.0-47.0); Hemoglobin 8.8 g/dL (12.2-16.2); Immature Granulocytes # 0.02 10^3uL; Immature Granulocytes % 0.3 %; Lymphocytes # 1.2 K/mm3 (0.7-4.5); Lymphocytes % 18.9 % (10-50); Mean Corpuscular Hemoglobin 22.4 pg (27.0-31.2); Mean Corpuscular Volume 74.7 fl (81-99); Mean Platelet Volume 11.9 fl (7.4-10.4); Monocytes # 0.6 K/mm3 (0.1-1.0); Monocytes % 9.7 % (1.7-9.3); Neutrophils # 4.5 K/mm3 (1.8-7.8); Neutrophils % 68.3 % (37.0-80.0); Nucleated Red Blood Cells # 0 10^3/uL; Nucleated Red Blood Cells % 0 %; Platelet Count 205 K/mm3 (142-424); Red Blood Count 3.92 M/mm3 (4.20-5.40); Red Cell Distribution Width 17.3 % (11.5-17.5); White Blood Count 6.5 K/mm3 (4.8-10.8)
[2024-09-07 18:18] LABS: Hepatitis C Ab Qual. W/ RFX NEGATIVE (Negative)
[2024-09-07 20:10] LABS: HIV Combo NEGATIVE (Negative)
[2024-09-08 10:36] LABS: RPR W/RFX Titers Nonreactive (Nonreactive)
[2024-09-09 09:11] LABS: Hepatitis B Surface Antigen Negative (Negative); Rubella Antibodies, IgG 1.73 index (Immune >0.99)
== END 2024-09-07 23:59 | disposition home or self-care (01) ==
LOC: LAB 15:46
PROVIDERS: PCP Nurse Practitioner Family; Visit Provider Obstetrics & Gynecology
DX: Z34.81 Encounter for supervision of other normal pregnancy, first trimester (principal)
CPT/HCPCS: 36415; 85025; 86592; 86762; 86803; 86850; 87340; 87389

== ENCOUNTER 2024-10-22 22:16 | Emergency (ER) | payer MEDICAID, SELFPAY ==
[2024-10-22 22:26] VITALS: BP 158/78; PULSE 99; RESP 16; TEMP 36.4; O2SAT 99; BMI 22.1
[2024-10-22 22:28] LABS: Microscopic, Urine URINE MICROSCOPIC (MICROSCOPIC)
[2024-10-22 22:30] VITALS: BP 143/86; PULSE 129; O2SAT 100
[2024-10-22 22:31] LABS: Appearance,Urine CLEAR (Clear); Bilirubin,Urine Negative (Negative); Blood, Urine Negative (Negative); Color,Urine YELLOW (Yellow); Glucose,Urine (UA) Negative (Negative); Ketones,Urine Negative (Negative); Leukocyte Esterase,Urine 1+ (Negative); Nitrate,Urine Negative (Negative); Protein,Urine Negative (Negative); Specific Gravity, Urine 1.015 (1.005-1.030); Urobilinogen,Urine 0.2 EU/dl (0.2)
[2024-10-22 22:51] LABS: Squamous Epithelial Cell,Urine 20-50 #/hpf (0-5); WBC,Urine 20-50 #/hpf (0-3)
[2024-10-22 22:52] LABS: Bacteria,Urine 3+ /lpf; Mucus,Urine 1+ /lpf
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
[2024-10-22 23:00] VITALS: BP 120/81; PULSE 89; O2SAT 99
[2024-10-22 23:12] VITALS: BP 120/81; PULSE 100; RESP 20; TEMP 36.6; O2SAT 99
== END 2024-10-22 23:13 | disposition home or self-care (01) ==
PROVIDERS: Emergency Provider Emergency Medicine; PCP Nurse Practitioner Family
DX: O26.892 Other specified pregnancy related conditions, second trimester (principal); R10.9 Unspecified abdominal pain; W50.1XXA Accidental kick by another person, initial encounter; Z3A.15 15 weeks gestation of pregnancy
CPT/HCPCS: 81001; 87086; 99284

== ENCOUNTER 2024-11-30 13:55 | Outpatient (CLI) | payer MEDICAID, SELFPAY ==
--- OUTSIDE RECORDS SUMMARY | 2024-11-30 13:57 | XMS_ITS | Clinical Summary ---
Author Organization [facility] Address [address] [place] [address] Care Team Providers Care Facilities Manager Name Role Phone Provider, No Known Primary Care Provider Unavail able Allergies Active Allergy Reactions Criticality Noted Date Comments Nitrofurantoin Other (See Comments) 04/13/2022 Cold chills & couldn't stop shaking Medications famotidine (PEPCID) 20 MG tablet Take 1 tablet by mouth 2 (Two) Times a Day. 12/01/2021 Active Vit-Fe Fumarate-FA ( 27-1) 27-1 MG tablet tablet Take 1 tablet by mouth Daily. Active ProAir HFA 108 (90 Base) MCG/ACT inhaler Inhale 1 puff As Needed. 03/09/2022 Active ibuprofen (ADVIL,MOTRIN) 600 MG tablet Take 1 tablet by mouth Every 6 (Six) Hours As Needed for Mild Pain. 90 tablet 1 04/15/2022 10:06 AM EST 04/15/2022 Active Active Problems Problem Noted Date Diagnosed Date IUGR (intrauterine growth re striction) affecting care of mother, third trimester, not applicable or unspecified fetus 04/13/2022 Family history of congenital heart defect 2021 IUGR (intrauterine growth re striction) affecting care of mother, third trimester, fetus 1 03/23/2022 ventricular septal def ect affecting antepartum care of mother 03/16/2022 02/02/2022 Anxiety Asthma History of prior with IUGR Social History Tobacco Use Types Packs/Day Years Used Date Smoking Tobacco: Never Smokeless Tobacco: Never Tobacco Cessation:Counseling Given: Not Answered Alcohol Use Standard Drinks/Week Comments Never 0 (1 standard drink = 0.6 oz pur e alcohol) AUDIT-C Answer Date Recorded Q1: How often do you have a drink containing alcohol? Never 04/13/2022 Q2: How many drinks containi ng alcohol do you have on a typical day when you are drinking? Patient does not drink Q3: How often do you have si x or more drinks on one occasion? Never 04/13/2022 [place] Depression Scale Answer Date Recorded Retired [place] Depression Score 1 04/14/2022 Retired EPD Scale: Thought of Harming Self Unrec ognized value 04/14/2022 Abuse Screen Answer Date Recorded Unsafe at Home or Work/School Not on file Feels Threatened by Someone? Not on file 04/2023 Does Anyone Keep You from Co ntacting Others or Doint Things Outside the Home? Not on file 04/26/2023 Physical Sign of Abuse Present Not on file 0 04/26/2023 Housing Stability Answer Date Recorded Current Living Arrangements Not on file 01/24 Potentially Unsafe Housing Conditions Not on mabel e 02/05/2023 Family and Community Support Answer Marlon e Recorded Help with Day-to-Day Activities Not on file 02/05/2023 Lonely or Isolated Not on file 02/05/2023 Employment Answer Date Recorded Do you want help finding or keeping work or a marko b? Not on file 02/05/2023 Disabilities Answer Date Recorded Concentrating, Remembering, or Making Decisions Difficulty Not on file 04/26/2023 Doing Errands Independently Difficulty Not on fi le 04/26/2023 Education Answer Date Recorded Help with school or training? Not on file Preferred Language Not on file 02/05/2023 Comments No Sex and Gender Information Value Date Recorded Sex Assigned at Not on file Legal Sex Female 10:34 AM EDT Gender Identity Not on file Sexual Orientation Not on file Last Filed Vital Signs Vital Sign Reading Time Taken Comments Blood Pressure 132/70 04/15/2022 7:17 AM EST Pulse 64 04/15/2022 7:17 AM EST Temperature 36.8 C (98.3 F) 04/15/2022 7:17 AM EST Respiratory Rate 16 04/15/2022 7:17 AM EST Oxygen Saturation - - Inhaled Oxygen Concentration - - Weight 56.7 kg (125 lb) 04/13/2022 4:38 PM EST Height 154.9 cm (5' 1 ) 04/13/2022 4:38 PM EST Body Mass Index 23.62 04/13/2022 4:38 PM EST Plan of Treatment Health Maintenance Due Date Last Done Comments Annual Gynecologic Pelvic an d Breast Exam 1993 Pneumococcal Vaccine 0-49 (1 of 2 - PCV) 01/20/2012 ANNUAL PHYSICAL 01/14/2022 HEPATITIS C SCREENING 01/14/2022 COVID-19 Vaccine ( - season) 2023 INFLUENZA VACCINE 01/24/2025 01/29/2016 TDAP/TD VACCINES (4 - Td or Tdap) 02/26/2032 02/25/2022, 08/14/2012, 11/16/2005 Insurance [employer] Advance Directives * CPR (Attempt to Resuscitate) (Latest Code Status on File) Date Activated Date Inactivated Comments 04/13/2022 11:42 PM 04/15/2022 3:07 PM Question Answer Comments Code Status (Patient has no pulse and is not breathing): CPR (Attempt to Resuscitate) Medical Interventions (Patie nt has pulse or is breathing): Full * CPR (Attempt to Resuscitate) Date Activated Date Inactivated Comments 04/13/2022 2:25 PM 04/13/2022 11:42 PM Question Answer Comments Code Status (Patient has no pulse and is not breathing): CPR (Attempt to Resuscitate) Medical Interventions (Patie nt has pulse or is breathing): Full Support Care Teams Facilities Manager Relationship Specialty Start Date End Date Provider, [place] [address] PCP - General 01/14/22
--- NOTE | 2024-11-30 14:00 | US_ITS ---
PROCEDURE: US OB /MATERNAL DETAIL CLINICAL INDICATION: 20 wk Anatomy Scan-US OB Complete COMPARISON: No exams were available for comparison FINDINGS: Transabdominal sonographic images of the pelvis were obtained. From her established due date she is 21 weeks 1 day. Single viable intrauterine gestation. Cephalic position. Placenta: Anteriorplacenta grade 1. There is an average amount of fluid. The cervix appears satisfactory. Closed and measuring 3.78 cm in length. Complete survey performed and was unremarkable on the submitted images as in PACS. No discrete anomalies identified on survey imaging by technologist. Active fetus. Three-vessel cord with satisfactory umbilical cord insertion. 4- chamber heart noted. S[place], aortic arch, LVOT and RVOT appear to be parallel and did not cross over. Difficult to obtain good views of the heart. Survey of brain & ventricles Unremarkable. Cerebellum, thalamus, choroid plexus, cisterna magna appear normal. Face and neck survey unremarkable. Profile, nasion, lips and nose appeared normal. Diaphragm and chest views unremarkable. Abdomen: Both kidneys noted and unremarkable. Stomach and bladder noted and satisfactory. Spine: Survey of the spine satisfactory with no anomalies identified nor imaged. Cervical, thoracic, lower spine appear normal. Both arms and legs noted. Amniotic Fluid: Adequate. MVP 4.13 cm Measurements: Average ultrasound age 20weeks 1day. Estimated due date by ultrasound age 1204/18/2025. Estimated weight 336g BPD = 20weeks 2days HC = 19weeks 6days AC = 20weeks 4days FL = 19weeks 6days Growth Percentile= 8 Heart Rate = 150bpm Cerebellum = 20weeks 6days Humerus = 21weeks HC/AC is 1.12 FL/BPD is 0.67 FL/AC is 0.21 IMPRESSION: 1. Viable fetus in cephalic presentation with an anterior placenta with a posterior wrap grade 1. 2. The fluid is within normal limits with an MVP 4.13 cm. 3. Anatomical scan appears normal. 4. heart views were difficult to obtain and it appeared that the RVOT runs parallel to the LVOT rather than crossing over. Would suggest repeat scan in 2 weeks. If abnormalities persist then would suggest a maternal medicine consult. 5. biometry is consistent with the dates Dictated by: Viet Mcdonald MD 11/30/2024 15:39 Viet Mcdonald MD in OV 11/30/2024 15:42
== END 2024-11-30 23:59 | disposition home or self-care (01) ==
LOC: RAD 13:55
PROVIDERS: PCP Nurse Practitioner Family; Visit Provider Obstetrics & Gynecology
DX: O99.512 Diseases of the respiratory system complicating pregnancy, second trimester (principal); J45.909 Unspecified asthma, uncomplicated; O99.891 Other specified diseases and conditions complicating pregnancy; M41.9 Scoliosis, unspecified; O09.892 Supervision of other high risk pregnancies, second trimester; Z3A.20 20 weeks gestation of pregnancy
CPT/HCPCS: 76811

== ENCOUNTER 2024-12-14 13:09 | Outpatient (CLI) | payer MEDICAID, SELFPAY ==
--- OUTSIDE RECORDS SUMMARY | 2024-12-14 13:24 | XMS_ITS | Clinical Summary ---
Author Organization [facility] Address [address] [place] [address] Care Team Providers Care Rubber Cutting Machine Tender Name Role Phone Provider, No Known Primary [...] more drinks on one occasion? Never 04/13/2022 [place] Depression Scale Answer Date Recorded Retired [place] Depression Score 1 04/14/2022 Retired EPD Scale: [...] 02/26/2032 02/25/2022, 08/14/2012, 11/16/2005 Insurance [place] [address] Advance Directives * CPR (Attempt to Resuscitate) [...] or is breathing): Full Support Care Teams Rubber Cutting Machine Tender Relationship Specialty Start Date End Date Provider, [place] [address] PCP - General 01/14/22
--- NOTE | 2024-12-14 13:45 | US_ITS ---
PROCEDURE: US OB FOLLOW UP CLINICAL INDICATION: follow-up ultrasound for cardiac views COMPARISON: US US OB /MATERNAL DETAIL from 11/30/2024 FINDINGS: Transabdominal sonographic images of the pelvis were obtained. The following parameters are obtained: From her established due date she is 23weeks 1day Viable fetus in the cephalic presentation with an anterior right laterally wrapped placenta grade 1. The cervix measures 3.65 cm heart rate: 139bpm bpm. Amniotic fluid: MVP 3.60 cm No obvious anomalies evident. profile seen, stomach, bladder, kidneys, three-vessel cord, four chamber heart appear normal. heart: Four-chamber heart, LVOT, the right outflow track is not visualized. It is not clear whether there is tetralogy of Fallot or stenotic valve. Would suggest a maternal medicine consult. IMPRESSION: 1. Viable fetus in the cephalic presentation with a right laterally wrapped placenta grade 1. 2. Fluid is within normal limits with an MVP 3.60 cm. 3. The right ventricular outflow track is not seen crossing today. Unsure whether possible stenosis of the valve or tetralogy of Fallot. Would suggest a maternal medicine consult. 4. The rest of the limited anatomical scan appears normal. Dictated by: Viet Mcdonald MD 12/14/2024 17:05 Viet Mcdonald MD in OV 12/14/2024 17:05
== END 2024-12-14 23:59 | disposition home or self-care (01) ==
LOC: RAD 13:10
PROVIDERS: PCP Nurse Practitioner Family; Visit Provider Obstetrics & Gynecology
DX: O28.3 Abnormal ultrasonic finding on antenatal screening of mother (principal); O99.512 Diseases of the respiratory system complicating pregnancy, second trimester; O09.292 Supervision of pregnancy with other poor reproductive or obstetric history, second trimester; J45.909 Unspecified asthma, uncomplicated; Z36.2 Encounter for other antenatal screening follow-up; Z36.83 Encounter for fetal screening for congenital cardiac abnormalities; Z3A.23 23 weeks gestation of pregnancy
CPT/HCPCS: 76816

== ENCOUNTER 2025-01-19 12:58 | Outpatient (CLI) | payer MEDICAID, SELFPAY ==
--- OUTSIDE RECORDS SUMMARY | 2025-01-01 10:13 | XMS_ITS | Encounter Summary ---
Author Organization [facility] Address [address] [place] [id number] Care Team Providers Care Data Collection Technician Name Role Phone Provider, No Known Primary Care Provider Unavail able Reason for Referral * Diagnostic Imaging (Routine) - Closed Specialty Diagnoses / Procedures Referred By Briana grey Referred To Contact Radiology Diagnoses Abnormal ultrasound Anomaly of heart of fetus affecting , antepartum, single or unspecified fetus History of delivery, currently , unspecified gestational age Procedures [facility] Diagnostic [place] Luna Olivo DO [address] [place] [address] Phone: tel: fax: [facility] US PER DIAG CTR [address] [place] [address] Phone: tel: Referral ID Status Reason Start Date Expiration Date Visits Re quested Visits Authorized [id number] Closed 12/18/2024 03/19/2026 1 1 Reason for Visit * Diagnostic Imaging (Routine) - Closed Specialty Diagnoses / Procedures Referred By Contac matilda Referred To Contact Radiology Diagnoses Abnormal ultrasound Anomaly of heart of fetus affecting , antepartum, single or unspecified fetus History of delivery, currently , unspecified gestational age Procedures US [facility] Diagnostic [place] uLna Olivo DO [address] [place] [address] Phone: tel: fax: [facility] US PER DIAG CTR [address] [place] [address] Phone: tel: Referral ID Status Reason Start Date Expiration Date Visits Re quested Visits Authorized [id number] Closed 12/18/2024 03/19/2026 1 1 Encounter Details Date Type Department Care Team (Latest Contact Info) Description 01/01/2025 10:13 AM EDT - 01/01/2025 11:59 PM EDT Hospital Encounter [facility] US PER DIAG CTR [address] [place] [address] [place] [address] [place] [address] [address] [place] [address] Abnormal ultrasound; Anomaly of heart [...] more drinks on one occasion? Never 04/13/2022 [place] Depression Scale Answer Date Recorded Retired [place] Depression Score 1 04/14/2022 Retired EPD Scale: [...] Care Team (Late st Contact Info) Description 02/12/2025 1:15 PM EDT Office Visit [facility] MATERNAL MEDICINE [address] [facility] [address] [place] [address] 02/12/2025 1:15 PM EDT Appointment [facility] US PER DIAG CTR [address] [place] [address] documented as of this encounter Procedures Procedure Name Priority Date/Time Associated Diagnosis Comments [facility] DI[facility]IC C[facility] Routine 01/01/2025 11:26 AM EDT Abnormal ultrasound Anomaly of heart of fetus affecting , antepartum, single or unspecified fetus History of delivery, currently , unspecified gestational age documented in this encounter Results * [facility] Diagnostic Center (01/01/2025 11:26 AM EDT) Anatomical Region Laterality Modality Ultrasound 01/01/2025 10:5 4 AM EDT Narrative 01/01/2025 11:28 AM EDT PAT NAME: DEBBIE MELARA MED REC#: [id number] DA: [id number] PAT GEND: F PAT TYPE: O EXAM ANTONINA: [id number] REF PHYS LUNA OLIVO Comparison Studies There [...] EFW (oz) 10 oz EFW by: Hadlock (BFN-IO-DJ-FL) Extended Tibia 39.4 mm 25w 0d 25% Taylor Fibula 38.0 mm 24w 2d 17% Taylor Foot 45.2 mm 10% Chitty Radius 33.5 mm 23w 5d 27% Taylor Ulna 39.6 mm 25w 6d 37% Taylor Cav. septi pel. tr 6.0 mm [employer] Director 5.1 mm CM 5.8 mm 35% Nicolaides [...] normal IVC: normal 3-vessel view: Appears normal 0-ivogmy-fdfbwuv view: Appears normal Cardiac axis: Normal Rt [...] view: Appears normal 3-vessel view: Appears normal 7-pdcvdm-ytsttkv view: Appears normal Aortic arch view: Appears [...] Spectral Doppler Umbilical A PI 1.39 93% Florenica Umbilical A RI 0.77 88% Florencia Umbilical [...] Follow-up scheduled in 5-6wks. Coding ======= Description: 06660-77 Detailed Ultrasound Description: 77008-82 Echo 2D, heart - initial Description: 42615-27 Doppler echo color flow Test Data Developer: Tyra Andrade RDMS Physician: Donna Zhang MD Electronically signed by: Donna Zhang MD at: 11:48 Procedure Note Donna Zhang MD - 01/01/2025 PAT NAME: DEBBIE MELARA MED REC#: [id number] DA: [id number] PAT GEND: F PAT TYPE: O EXAM ANTONINA: [id number] REF PHYS LUNA OLIVO Comparison Studies There are no relevant prior studies to which this study is beingcompared Patient Status Outpatient Indication ======== Incomplete heart views, previous child with CHD (no surgery needed) Maternal Assessment Vwvoys057 cm Height (ft)5 ft Height (in)1 in Hlaahi36 kg Weight (lb)123 lb BMI23.61 kg/m Method ======= Transabdominal ultrasound examination. View: Adequate view ========= Leal . Number of fetuses: 1 Dating ====== Method of dating:based on stated ANNELISE GA by prior bsmzceoidf02 w + 5 d ANNELISE by prior assessment:04/11/2025 Ultrasound examination on:01/01/2025 GA by U/S based upon:AC, BPD, Femur, HC GA by U/S24 w + 5 d ANNELISE by U/S:04/18/2025 Assigned:based on stated ANNELISE, selected on 01/01/2025 Assigned GA25 w + 5 d Assigned ANNELISE:04/11/2025 yodjbl086 d Biometry Standard BPD60.1 mm 24w 4d 8% Hadlock OFD77.3 mm 25w 2d 36% Taylor HC221.2 mm 24w 1d 1% Hadlock Cerebellum tr28.7 mm 25w 2d 36% Hill AC207.7 mm 25w 2d 29% Hadlock Femur44.5 mm 24w 5d 11% Hadlock Kozhfhr83.5 mm 24w 4d 11% Taylor HC / AC1.06 YZG332 g 24w 5d 14% Hadlock EFW (lb)1 lb EFW (oz)10 oz EFW by:Hadlock (XXT-BM-AP-FL) Extended Tibia39.4 mm 25w 0d 25% Taylor Vimhad19.0 mm 24w 2d 17% Taylor Foot45.2 mm 10% Chitty Cnapok23.5 mm 23w 5d 27% Taylor Ulna39.6 mm 25w 6d 37% Taylor Cav. septi pel. tr6.0 mm Vp5.1 mm CM5.8 mm 35% Nicolaides Nasal bone10.2 mm Head / Face / Neck Cephalic index0.78 41% Nicolaides Thorax / Lungs Thoracic lgga931.4 mm <1% [place] Thoracic area17.1 cm ThC [...] / HC0.20 FL / AC0.21 Other Structures LEX014 bpm General Evaluation Cardiac activity present. FHR [...] view:Appears normal SVC:normal IVC:normal 3-vessel view:Appears normal 2-skovzw-xgoupcz view:Appears normal Cardiac axis:Normal Rt lung:Appears normal [...] normal RVOT view:Appears normal 3-vessel view:Appears normal 3-mbwsji-lykcjef view:Appears normal Aortic arch view:Appears normal Ductal [...] pulmonary artery B and M-Mode Measurements Thoracic cyxe625.4 mm <1% [place] Thoracic area17.1 cm ThC [...] Structures Uterus / Cervix Cervix:Visualized Approach:Transabdominal Cervical jcopvy68.0 mm Ovaries / Tubes / Adnexa Rt [...] Recommendation Follow-up scheduled in 5-6wks. Coding ======= Description:88141-54 Detailed Ultrasound Description:25467-83 Echo 2D, heart - initial Description:63742-19 Doppler echo color flow Test Data Developer: Tyra Andrade RDMS Physician: Donna Zhang MD Electronically signed by: Donna Zhang MD at: 11:48 Luna Olivo DO [facility] ORDERABLES Edited Resul t - Final documented in this encounter Visit Diagnoses Diagnosis Abnormal ultrasound Anomaly of heart of fetus affecting , antepartum, single or unspecified fetus History of delivery, currently with history of pre-term labor , unspecified gestational age documented in this encounter Care Teams Data Collection Technician Relationship Specialty Start Date End Date Provider, No Known [place] [address] PCP - General 01/14/22 documented as of this encounter
--- OUTSIDE RECORDS SUMMARY | 2025-01-01 10:30 | XMS_ITS | Encounter Summary ---
Author Organization [facility] Address [address] [place] [phone] Care Team Providers Care Manager Mobility Name Role Phone Provider, No Known Primary Care Provider Unavail able Reason for Referral * Diagnostic Imaging (Routine) - Authorized Specialty Diagnoses / Procedures Referred By Contac t Referred To Contact Radiology Diagnoses Family history of congenital heart defect History of prior with IUGR 25 weeks gestation of Procedures [facility] Donna Zhang MD [address] [facility] [address] [place], [place] [address] Phone: tel: fax: Referral ID Status Reason Start Date Expiration Date V isits Requested Visits Authorized [id number] Authorized 01/01/2025 04/02/2026 1 1 Reason for Visit * Reason Comments incomplete heart views Encounter Details Date Type Department Care Team (Late st Contact Info) Description 01/01/2025 10:30 AM EDT Office Visit [facility] MATERNAL MEDICINE [address] [facility] [address] [place] [phone] Donna Zhang MD [address] [place] [address] Family history of congenital heart defect (Primary [...] more drinks on one occasion? Never 04/13/2022 [place] Depression Scale Answer Date Recorded Retired [place] Depression Score 1 04/14/2022 Retired EPD Scale: [...] under imaging tab of patient chart in [facility] (Viewpoint report). Donna Zhang MD documented in this encounter Plan of Treatment Upcoming Encounters Date Type Department Care Team (Late st Contact Info) Description 02/12/2025 1:15 PM EDT Office Visit [facility] MATERNAL MEDICINE [address] [facility] [address] [place] [address] 02/12/2025 1:15 PM EDT Appointment [facility] [address] [place] [address] Scheduled Orders Name Type Priority Associated Diagnoses Orde r Schedule [facility] Imaging Routine Family history of congenital heart defect History of prior with IUGR 25 weeks gestation of Expected: 02/05/2025, Expires: 01/01/2026 documented as of this encounter Visit Diagnoses Diagnosis Family history of congenital heart defect- Primary History of prior with IUGR 25 weeks gestation of documented in this encounter Care Teams Manager Mobility Relationship Specialty Start Date End Date Provider, [place] [address] PCP - General 01/14/22 documented as of this encounter
--- OUTSIDE RECORDS SUMMARY | 2025-01-19 13:02 | XMS_ITS | Clinical Summary ---
Author Organization [facility] Address [address] [place] [address] Care Team Providers Care High School Music Instructor Name Role Phone Provider, No Known Primary Care Provider Unavail able Allergies Active Allergy Reactions Criticality Noted Date Comments Nitrofurantoin Other (See Comments) Low 04/13/2022 Cold chills & couldn't stop shaking Medications famotidine (PEPCID) 20 MG tablet Take 1 tablet by mouth 2 (Two) Times a Day. 2 Active Vit-Fe Fumarate-FA ( 27-1) 27-1 MG tablet tablet Take 1 tablet by mouth Daily. Active ProAir HFA 108 (90 Base) MCG/ACT inhaler Inhale 1 puff As Needed. 2 Active ibuprofen (ADVIL,MOTRIN) 600 MG tablet Take 1 tablet by mouth Every 6 (Six) Hours As Needed for Mild Pain. 90 tablet 1 04/15/2022 10:06 AM EST 2 01/02/20 25 Discontinu ed(Pregnan cy) Active Problems Problem Noted Date Diagnosed Date Family history of congenital heart defect 2021 02/02/2022 Anxiety Asthma History of prior with IUGR Estimated Date of Delivery Comme nts Yes 04/11/2025 Date entered anna or to episode creation Resolved Problems Problem Noted Date Diagnosed Date Resolved Date IUGR (intrauterine growth re striction) affecting care of mother, third trimester, not applicable or unspecified fetus 04/13/2022 09/11/2024 IUGR (intrauterine growth re striction) affecting care of mother, third trimester, fetus 1 03/23/2022 01/01/2025 ventricular septal def ect affecting antepartum care of mother 03/16/2022 01/01/2025 Encounters Date Type Department Care Team Description 01/01/2025 10:30 AM EDT Office Visit [facility] MATERNAL MEDICINE [address] [place] [address] Donna Zhang MD Family history of congenital heart defect (Primary Dx); History of prior with IUGR ; 25 weeks gestation of 01/01/2025 10:13 AM EDT - 01/01/2025 11:59 PM EDT Hospital Encounter [facility] [address] [place] [address] Luna Olivo DO Abnormal ultrasound; Anomaly of heart of fetus affecting , antepartum, single or unspecified fetus; History of delivery, currently ; , unspecified gestational age Discharge Disposition: Home or Self Care 01/01/2025 Travel from Last 3 Months Social History Tobacco Use Types Packs/Day Years [...] more drinks on one occasion? Never 04/13/2022 [place] Depression Scale Answer Date Recorded Retired [place] Depression Score 1 04/14/2022 Retired EPD Scale: [...] Pressure 122/69 01/01/2025 10:48 AM EDT Pulse 64 04/15/2022 7:17 AM EST Temperature 36.8 C (98.3 F) 04/15/2022 7:17 AM EST Respiratory Rate 16 04/15/2022 7:17 AM EST Oxygen Saturation - - Inhaled Oxygen Concentration - - Weight 56.9 kg (125 lb 6.4 oz) 01/01/2025 10:48 AM EDT Height 154.9 cm (5' 1 ) 01/01/2025 10:35 AM EDT Body Mass Index 23.69 01/01/2025 10:35 AM EDT Plan of Treatment Upcoming Encounters Date Type Department Care Team (Late st Contact Info) Description 02/12/2025 1:15 PM EDT Office Visit [facility] MATERNAL MEDICINE [address] [facility] [address] [place] [address] 02/12/2025 1:15 PM EDT Appointment [facility] [address] [place] [address] Health Maintenance Due Date Last Done Comments Annual Gynecologic Pelvic an d Breast Exam 1995 Pneumococcal Vaccine 0-49 (1 of 2 - PCV) 01/20/2012 PAP SMEAR 2014 ANNUAL PHYSICAL 01/14/2022 HEPATITIS C SCREENING 01/14/2022 INFLUENZA VACCINE 11/24/2024 01/29/2016 RSV Vaccine - Adults (1 - Ri sk 1-dose series) 02/14/2025 TDAP/TD VACCINES (4 - Td or Tdap) 02/26/2032 02/25/2022, 08/14/2012, 11/16/2005 Procedures Procedure Name Priority Date/Time Associated Diagnosis Comments [facility] Routine 01/01/2025 11:26 AM EDT Abnormal ultrasound Anomaly of heart of fetus affecting , antepartum, single or unspecified fetus History of delivery, currently , unspecified gestational age from Last 3 Months Results * [facility] (01/01/2025 11:26 AM EDT) Anatomical Region Laterality Modality Ultrasound 01/01/2025 10:5 4 AM EDT Narrative 01/01/2025 11:28 AM EDT PAT NAME: DEBBIE MELARA [facility] REC#: [id number] DA: [id number] PAT GEND: F PAT TYPE: O EXAM ANTONINA: [id number] REF PHYS LUNA OLIVO Comparison Studies There [...] EFW (oz) 10 oz EFW by: Hadlock ([id number]) Extended Tibia 39.4 mm 25w 0d 25% Taylor Fibula 38.0 mm 24w 2d 17% Taylor Foot 45.2 mm 10% Chitty Radius 33.5 mm 23w 5d 27% Taylor Ulna 39.6 mm 25w 6d 37% Taylor Cav. septi pel. tr 6.0 mm Mate Relief 5.1 mm CM 5.8 mm 35% Nicolaides [...] normal IVC: normal 3-vessel view: Appears normal 9-yxausi-vqpgawg view: Appears normal Cardiac axis: Normal Rt [...] view: Appears normal 3-vessel view: Appears normal 1-xbttxh-ywtzhqy view: Appears normal Aortic arch view: Appears [...] Follow-up scheduled in 5-6wks. Coding ======= Description: 59422-12 Detailed Ultrasound Description: 39769-75 Echo 2D, heart - initial Description: 80227-95 Doppler echo color flow Hand Plug Shaper: Tyra Andrade RDMS Physician: Donna Zhang MD Electronically signed by: Donna Zhang MD at: 11:48 Procedure Note Donna Zhang MD - 01/01/2025 PAT NAME: DEBBIE MELARA [facility] REC#: [id number] DA: [id number] PAT GEND: F PAT TYPE: O EXAM ANTONINA: [id number] REF PHYS LUNA OLIVO Comparison Studies There are no relevant prior studies to which this study is beingcompared Patient Status Outpatient Indication ======== Incomplete heart views, previous child with CHD (no surgery needed) Maternal Assessment Vqsyfs841 cm Height (ft)5 ft Height (in)1 in Gfggum31 kg Weight (lb)123 lb BMI23.61 kg/m Method ======= Transabdominal ultrasound examination. View: Adequate view ========= Leal . Number of fetuses: 1 Dating ====== Method of dating:based on stated ANNELISE GA by prior sozcxrlplj78 w + 5 d ANNELISE by prior assessment:04/11/2025 Ultrasound examination on:01/01/2025 GA by U/S based upon:AC, BPD, Femur, HC GA by U/S24 w + 5 d ANNELISE by U/S:04/18/2025 Assigned:based on stated ANNELISE, selected on 01/01/2025 Assigned GA25 w + 5 d Assigned ANNELISE:04/11/2025 ntwuui900 d Biometry Standard BPD60.1 mm 24w 4d 8% Hadlock OFD77.3 mm 25w 2d 36% Taylor HC221.2 mm 24w 1d 1% Hadlock Cerebellum tr28.7 mm 25w 2d 36% Hill AC207.7 mm 25w 2d 29% Hadlock Femur44.5 mm 24w 5d 11% Hadlock Qntohrz49.5 mm 24w 4d 11% Taylor HC / AC1.06 XEF704 g 24w 5d 14% Hadlock EFW (lb)1 lb EFW (oz)10 oz EFW by:Hadlock ([id number]) Extended Tibia39.4 mm 25w 0d 25% Taylor Aezcab24.0 mm 24w 2d 17% Taylor Foot45.2 mm 10% Chitty Ytbycy10.5 mm 23w 5d 27% Taylor Ulna39.6 mm 25w 6d 37% Taylor Cav. septi pel. tr6.0 mm Vp5.1 mm CM5.8 mm 35% Nicolaides Nasal bone10.2 mm Head / Face / Neck Cephalic index0.78 41% Nicolaides Thorax / Lungs Thoracic aute856.4 mm <1% [place] Thoracic area17.1 cm ThC [...] / HC0.20 FL / AC0.21 Other Structures OFT682 bpm General Evaluation Cardiac activity present. FHR [...] view:Appears normal SVC:normal IVC:normal 3-vessel view:Appears normal 2-imrunp-nkassvs view:Appears normal Cardiac axis:Normal Rt lung:Appears normal [...] normal RVOT view:Appears normal 3-vessel view:Appears normal 7-xhroer-apfthnc view:Appears normal Aortic arch view:Appears normal Ductal [...] pulmonary artery B and M-Mode Measurements Thoracic ozre830.4 mm <1% [place] Thoracic area17.1 cm ThC [...] Recommendation Follow-up scheduled in 5-6wks. Coding ======= Description:72095-47 Detailed Ultrasound Description:23335-89 Echo 2D, heart - initial Description:22124-11 Doppler echo color flow Hand Plug Shaper: Tyra Andrade RDMS Physician: Donna Zhang MD Electronically signed by: Donna Zhang MD at: 11:48 us Luna Geovani DO IMG US ORDERABLES Edited Resul t - Final from Last 3 Months Insurance [employer] Advance Directives * CPR [...] or is breathing): Full Support Care Teams High School Music Instructor Relationship Specialty Start Date End Date Provider, [place] [address] PCP - General 01/14/22
--- OUTSIDE RECORDS SUMMARY | 2025-01-19 13:02 | XMS_ITS | Encounter Summary ---
Author Organization [facility] Address [address] [place] [address] Care Team Providers Care Chicken Hatchery Helper Name Role Phone Provider, No Known Primary Care Provider Unavail able Encounter Details Date Type Department Care Team (Latest Contact Info) Description 01/01/2025 Travel Social History Tobacco Use Types Packs/Day Years [...] more drinks on one occasion? Never 04/13/2022 [place] Depression Scale Answer Date Recorded Retired [place] Depression Score 1 04/14/2022 Retired EPD Scale: [...] on file documented as of this encounter Plan of Treatment Upcoming Encounters Date Type Department Care Team (Late st Contact Info) Description 02/12/2025 1:15 PM EDT Office Visit [facility] MAT[facility]NAL MEDICINE [address] [place] [address] 02/12/2025 1:15 PM EDT Appointment [facility] [address] [place] [address] documented as of this encounter Visit Diagnoses Not on filedocumented in this encounter Care Teams Chicken Hatchery Helper Relationship Specialty Start Date End Date Provider, [place] [address] PCP - General 01/14/22 documented as of this encounter
--- NOTE | 2025-01-19 13:45 | US_ITS ---
PROCEDURE: US OB FOLLOW UP CLINICAL INDICATION: f/u COMPARISON: US US OB FOLLOW UP from 12/14/2024 FINDINGS: Transabdominal sonographic images of the pelvis were obtained. The following parameters are obtained: From her established due date she is 28weeks 2days Viable fetus in the cephalic presentation with an anterior placenta grade 1. There appears to be a posterior placental lobe. The cervix measures 3.28 cm in length heart rate: 127bpm bpm. Average ultrasound age 27 weeks 3 days Estimated weight 1117 grams, 2 lb 7 oz BPD: 26weeks 3days, 2 percentile HC: 26weeks 6days, <2 percentile AC: 27weeks 6days, 29 percentile FL: 28weeks 1day, 29 percentile HC/AC: 1.05 FL/BPD: 0.81 FL/AC: 0.22 Growth percentile: 19 Amniotic fluid: MVP 3.66 cm No obvious anomalies evident. profile seen, stomach, bladder, kidneys, three-vessel cord, four chamber heart appear normal. heart: RVOT, LVOT, three-vessel view, four-chamber heart, are seen and appear normal. IMPRESSION: 1. Viable fetus in the cephalic presentation with an anterior placenta with posterior placental lobe grade 1. 2. The fluid is within normal limits with an MVP 3.66 cm. 3. The fetus is currently 19th percentile with the head circumference and BPD 2nd percentile. 4. Limited anatomical scan appears normal. 5. Suggest follow-up growth ultrasound in 4 weeks. Dictated by: Viet Mcdonald MD 01/19/2025 17:09 Viet Mcdonald MD in OV 01/19/2025 17:09
[2025-01-19 16:26] LABS: Hematocrit 23.2 % (37.0-47.0); Immature Granulocytes % 0.6 %; Mean Corpuscular HGB Conc 28.4 g/dL (31.8-35.4); Mean Corpuscular Hemoglobin 21.8 pg (27.0-31.2); Mean Corpuscular Volume 76.6 fl (81-99); Nucleated Red Blood Cells % 0.4 %; Platelet Count 153 K/mm3 (142-424); Red Blood Count 3.03 M/mm3 (4.20-5.40); Red Cell Distribution Width-SD 46.1 fL; White Blood Count 5.4 K/mm3 (4.8-10.8)
[2025-01-19 16:45] LABS: Glucose 1 Hour 150 mg/dL (74-100)
[2025-01-19 16:49] LABS: Hemoglobin 6.6 g/dL (12.2-16.2)
[2025-01-20 08:55] LABS: RPR W/RFX Titers Nonreactive (Nonreactive)
== END 2025-01-19 23:59 | disposition home or self-care (01) ==
PROVIDERS: PCP Nurse Practitioner Family; Visit Provider Obstetrics & Gynecology
DX: O99.513 Diseases of the respiratory system complicating pregnancy, third trimester (principal); O09.893 Supervision of other high risk pregnancies, third trimester; J45.909 Unspecified asthma, uncomplicated; Z3A.28 28 weeks gestation of pregnancy
CPT/HCPCS: 36415; 76816; 82947; 85025; 86592

== ENCOUNTER 2025-01-20 11:17 | Outpatient (CLI) | payer MEDICAID, SELFPAY ==
--- OUTSIDE RECORDS SUMMARY | 2025-01-01 10:13 | XMS_ITS | Encounter Summary ---
Author Organization [facility] Address [address] [place] [id number] Care Team Providers Care Missile Inspector Preflight Name Role Phone Provider, No Known Primary Care Provider Unavail able Reason for Referral * Diagnostic Imaging (Routine) - Closed Specialty Diagnoses / Procedures Referred By Briana grey Referred To Contact Radiology Diagnoses Abnormal ultrasound Anomaly of heart of fetus affecting , antepartum, single or unspecified fetus History of delivery, currently , unspecified gestational age Procedures US [facility] Diagnostic [place] Luna Olivo DO [address] [place] [address] Phone: tel: fax: [facility] US PER DIAG CTR [address] [place] [address] Phone: tel: Referral ID Status Reason Start Date Expiration Date Visits Re quested Visits Authorized [id number] Closed 12/18/2024 03/19/2026 1 1 Reason for Visit * Diagnostic Imaging (Routine) - Closed Specialty Diagnoses / Procedures Referred By Contac matilda Referred To Contact Radiology Diagnoses Abnormal ultrasound Anomaly of heart of fetus affecting , antepartum, single or unspecified fetus History of delivery, currently , unspecified gestational age Procedures [facility] Diagnostic [place] Luna Olivo DO [address] [place] [address] Phone: tel: fax: [facility] US PER DIAG CTR [address] [place] [address] Phone: tel: Referral ID Status Reason Start Date Expiration Date Visits Re quested Visits Authorized [id number] Closed 12/18/2024 03/19/2026 1 1 Encounter Details Date Type Department Care Team (Latest Contact Info) Description 01/01/2025 10:13 AM EDT - 01/01/2025 11:59 PM EDT Hospital Encounter [facility] US PER DIAG CTR [address] [place] [address] [place] [address] [place] [address] [address] [place] [address] Abnormal ultrasound; Anomaly of heart [...] more drinks on one occasion? Never 04/13/2022 [place] Depression Scale Answer Date Recorded Retired [place] Depression Score 1 04/14/2022 Retired EPD Scale: [...] Description 02/12/2025 1:15 PM EDT Office Visit [facility] MATERNAL MEDICINE [address] [facility] [address] [place] [address] 02/12/2025 1:15 PM EDT Appointment [facility] US PER DIAG CTR [address] [place] [address] documented as of this encounter Procedures Procedure Name Priority Date/Time Associated Diagnosis Comments [facility]IC C[facility] Routine 01/01/2025 11:26 AM EDT Abnormal ultrasound Anomaly of heart of fetus affecting , antepartum, single or unspecified fetus History of delivery, currently , unspecified gestational age documented in this encounter Results * [facility] Diagnostic Center (01/01/2025 11:26 AM EDT) Anatomical Region Laterality Modality Ultrasound 01/01/2025 10:5 4 AM EDT Narrative 01/01/2025 11:28 AM EDT PAT NAME: DEBBIE MELARA MED REC#: [id number] DA: [id number] PAT GEND: F PAT TYPE: O EXAM ANTONINA: [id number] REF PHYS LUNA OLIVO Comparison Studies There [...] EFW (oz) 10 oz EFW by: Hadlock (VAD-NK-MD-FL) Extended Tibia 39.4 mm 25w 0d 25% Taylor Fibula 38.0 mm 24w 2d 17% Taylor Foot 45.2 mm 10% Chitty Radius 33.5 mm 23w 5d 27% Taylor Ulna 39.6 mm 25w 6d 37% Taylor Cav. septi pel. tr 6.0 mm Plywood Scarfer Tender 5.1 mm CM 5.8 mm 35% Nicolaides [...] normal IVC: normal 3-vessel view: Appears normal 8-pskswi-lgcwgip view: Appears normal Cardiac axis: Normal Rt [...] view: Appears normal 3-vessel view: Appears normal 6-kbcsgf-sjyqfse view: Appears normal Aortic arch view: Appears [...] Omalley RV wall diast 2.88 mm 88% [place] LA length diast 7.3 mm LA width [...] Follow-up scheduled in 5-6wks. Coding ======= Description: 44961-08 Detailed Ultrasound Description: 04569-08 Echo 2D, heart - initial Description: 40787-59 Doppler echo color flow Optical Effects Line Up Person: Tyra Andrade RDMS Physician: Donna Zhang MD Electronically signed by: Donna Zhang MD at: 11:48 Procedure Note Donna Zhang MD - 01/01/2025 PAT NAME: DEBBIE MELARA MED REC#: [id number] DA: [id number] PAT GEND: F PAT TYPE: O EXAM ANTONINA: [id number] REF PHYS LUNA OLIVO Comparison Studies There are no relevant prior studies to which this study is beingcompared Patient Status Outpatient Indication ======== Incomplete heart views, previous child with CHD (no surgery needed) Maternal Assessment Apwiui873 cm Height (ft)5 ft Height (in)1 in Olxxah97 kg Weight (lb)123 lb BMI23.61 kg/m Method ======= Transabdominal ultrasound examination. View: Adequate view ========= Leal . Number of fetuses: 1 Dating ====== Method of dating:based on stated ANNELISE GA by prior yylmsnthsj42 w + 5 d ANNELISE by prior [...] Hadlock Femur44.5 mm 24w 5d 11% Hadlock Opxxyam05.5 mm 24w 4d 11% Taylor HC / AC1.06 BJT307 g 24w 5d 14% Hadlock EFW (lb)1 lb EFW (oz)10 oz EFW by:Hadlock (WPB-MK-JY-FL) Extended Tibia39.4 mm 25w 0d 25% Taylor Ncabyr76.0 mm 24w 2d 17% Taylor Foot45.2 mm 10% Chitty Gsslgk95.5 mm 23w 5d 27% Taylor Ulna39.6 mm 25w 6d 37% Taylor Cav. septi pel. tr6.0 mm Vp5.1 mm CM5.8 mm 35% Nicolaides Nasal bone10.2 mm Head / Face / Neck Cephalic index0.78 41% Nicolaides Thorax / Lungs Thoracic ccht337.4 mm <1% [place] Thoracic area17.1 cm ThC [...] / HC0.20 FL / AC0.21 Other Structures DOC865 bpm General Evaluation Cardiac activity present. FHR [...] view:Appears normal SVC:normal IVC:normal 3-vessel view:Appears normal 2-jjyfgo-pupufwz view:Appears normal Cardiac axis:Normal Rt lung:Appears normal [...] normal RVOT view:Appears normal 3-vessel view:Appears normal 6-kpycnf-ztirubg view:Appears normal Aortic arch view:Appears normal Ductal [...] pulmonary artery B and M-Mode Measurements Thoracic evlx798.4 mm <1% [place] Thoracic area17.1 cm ThC [...] Structures Uterus / Cervix Cervix:Visualized Approach:Transabdominal Cervical qcmyrm33.0 mm Ovaries / Tubes / Adnexa Rt [...] Recommendation Follow-up scheduled in 5-6wks. Coding ======= Description:47203-77 Detailed Ultrasound Description:51935-39 Echo 2D, heart - initial Description:33627-16 Doppler echo color flow Optical Effects Line Up Person: Tyra Andrade RDMS Physician: Donna Zhang MD Electronically signed by: Donna Zhang MD at: 11:48 Luna Olivo DO [facility] ORDERABLES Edited Resul t - Final documented in this encounter Visit Diagnoses Diagnosis Abnormal ultrasound Anomaly of heart of fetus affecting , antepartum, single or unspecified fetus History of delivery, currently with history of pre-term labor , unspecified gestational age documented in this encounter Care Teams Missile Inspector Preflight Relationship Specialty Start Date End Date Provider, No Known [place] [address] PCP - General 01/14/22 documented as of this encounter
--- OUTSIDE RECORDS SUMMARY | 2025-01-01 10:30 | XMS_ITS | Encounter Summary ---
Author Organization [facility] Address [address] [place] [phone] Care Team Providers Care Compliance Coordinator Name Role Phone Provider, No Known Primary Care Provider Unavail able Reason for Referral * Diagnostic Imaging (Routine) - Authorized Specialty Diagnoses / Procedures Referred By Contac t Referred To Contact Radiology Diagnoses Family history of congenital heart defect History of prior with IUGR 25 weeks gestation of Procedures [facility] Donna Zhang MD [address] [facility] [address] [place], [place] [address] Phone: tel: fax: Referral ID Status Reason Start Date Expiration Date V isits Requested Visits Authorized [id number] Authorized 01/01/2025 04/02/2026 1 1 Reason for Visit * Reason Comments incomplete heart views Encounter Details Date Type Department Care Team (Late st Contact Info) Description 01/01/2025 10:30 AM EDT Office Visit [facility] [address] [facility] [address] [place] [phone] Donna Zhang MD [address] [place] [address] Family history of congenital heart defect (Primary [...] more drinks on one occasion? Never 04/13/2022 [place] Depression Scale Answer Date Recorded Retired [place] Depression Score 1 04/14/2022 Retired EPD Scale: [...] denies major complaints. Sees OB 01/17. * Donna Zhang MD - 01/01/2025 10:30 AM EDT Patient seen in Maternal Medicine clinic today. Please see full note in under imaging tab of patient chart in [facility] (Viewpoint report). Donna Zhang MD documented in this encounter Plan of Treatment Upcoming Encounters Date Type Department Care Team (Late st Contact Info) Description 02/12/2025 1:15 PM EDT Office Visit [facility] [address] [facility] [address] [place] [address] 02/12/2025 1:15 PM EDT Appointment [facility] [address] [place] [address] Scheduled Orders Name Type Priority Associated Diagnoses Orde r Schedule [facility] Center Imaging Routine Family history of congenital heart defect History of prior with IUGR 25 weeks gestation of Expected: 02/05/2025, Expires: 01/01/2026 documented as of this encounter Visit Diagnoses Diagnosis Family history of congenital heart defect- Primary History of prior with IUGR 25 weeks gestation of documented in this encounter Care Teams Compliance Coordinator Relationship Specialty Start Date End Date Provider, [place] [address] PCP - General 01/14/22 documented as of this encounter
--- OUTSIDE RECORDS SUMMARY | 2025-01-20 11:21 | XMS_ITS | Encounter Summary ---
Author Organization [facility] Address [address] [place] [address] Care Team Providers Care Prop And Scenery Maker Name Role Phone Provider, No Known Primary [...] more drinks on one occasion? Never 04/13/2022 [place] Depression Scale Answer Date Recorded Retired [place] Depression Score 1 04/14/2022 Retired EPD Scale: [...] Description 02/12/2025 1:15 PM EDT Office Visit [facility] MATERNAL MEDICINE [address] [place] [address] 02/12/2025 1:15 PM EDT Appointment [facility] PER DIAG CTR [address] [place] [address] documented as of this encounter Visit Diagnoses Not on filedocumented in this encounter Care Teams Prop And Scenery Maker Relationship Specialty Start Date End Date Provider, [place] [address] PCP - General 01/14/22 documented as of this encounter
--- OUTSIDE RECORDS SUMMARY | 2025-01-20 11:21 | XMS_ITS | Clinical Summary ---
Author Organization [facility] Address [address] [place] [address] Care Team Providers Care Wet Process Miller Head Name Role Phone Provider, No Known Primary [...] Description 01/01/2025 10:30 AM EDT Office Visit [facility] MATERNAL MEDICINE [address] [place] [address] Donna Zhang MD Family history of congenital heart defect (Primary Dx); History of prior with IUGR ; 25 weeks gestation of 01/01/2025 10:13 AM EDT - 01/01/2025 11:59 PM EDT Hospital Encounter [facility] US PER DIAG CTR [address] [place] [address] Luna Olivo DO Abnormal ultrasound; [...] more drinks on one occasion? Never 04/13/2022 [place] Depression Scale Answer Date Recorded Retired [place] Depression Score 1 04/14/2022 Retired EPD Scale: [...] Description 02/12/2025 1:15 PM EDT Office Visit [facility] MATERNAL MEDICINE [address] [facility] [address] [place] [address] 02/12/2025 1:15 PM EDT Appointment [facility] US PER DIAG CTR [address] [place] [address] Health Maintenance Due Date Last Done Comments [...] Procedure Name Priority Date/Time Associated Diagnosis Comments [facility] Routine 01/01/2025 11:26 AM EDT Abnormal ultrasound Anomaly of heart of fetus affecting , antepartum, single or unspecified fetus History of delivery, currently , unspecified gestational age from Last 3 Months Results * [facility] (01/01/2025 11:26 AM EDT) Anatomical Region Laterality Modality Ultrasound 01/01/2025 10:5 4 AM EDT Narrative 01/01/2025 11:28 AM EDT PAT NAME: DEBBIE MELARA [facility] REC#: [id number] DA: [id number] PAT GEND: F PAT TYPE: O EXAM ANTONINA: [id number] REF PHYS LUNA OLIVO Comparison Studies There [...] EFW (oz) 10 oz EFW by: Hadlock (IGI-XX-JB-FL) Extended Tibia 39.4 mm 25w 0d 25% Taylor Fibula 38.0 mm 24w 2d 17% Taylor Foot 45.2 mm 10% Chitty Radius 33.5 mm 23w 5d 27% Taylor Ulna 39.6 mm 25w 6d 37% Atylor Cav. septi pel. tr 6.0 mm Aircraft Charter Dispatcher 5.1 mm CM 5.8 mm 35% Nicolaides [...] normal IVC: normal 3-vessel view: Appears normal 6-dnppur-obwaojr view: Appears normal Cardiac axis: Normal Rt [...] view: Appears normal 3-vessel view: Appears normal 0-vqdwah-rtuapxe view: Appears normal Aortic arch view: Appears [...] Follow-up scheduled in 5-6wks. Coding ======= Description: 96899-85 Detailed Ultrasound Description: 00845-81 Echo 2D, heart - initial Description: 08073-40 Doppler echo color flow Application Services Manager: Tyra Andrade RDMS Physician: Donna Zhang MD Electronically signed by: Donna Zhang MD at: 11:48 Procedure Note Donna Zhang MD - 01/01/2025 PAT NAME: DEBBIE MELARA [facility] REC#: [id number] DA: [id number] PAT GEND: F PAT TYPE: O EXAM ANTONINA: [id number] REF PHYS LUNA OLIVO Comparison Studies There are no relevant prior studies to which this study is beingcompared Patient Status Outpatient Indication ======== Incomplete heart views, previous child with CHD (no surgery needed) Maternal Assessment Kajeui443 cm Height (ft)5 ft Height (in)1 in Pvizaj85 kg Weight (lb)123 lb BMI23.61 kg/m Method ======= Transabdominal ultrasound examination. View: Adequate view ========= Leal . Number of fetuses: 1 Dating ====== Method of dating:based on stated ANNELIES GA by prior qzxkrkgekl12 w + 5 d ANNELISE by prior assessment:04/11/2025 Ultrasound examination on:01/01/2025 GA by U/S based upon:AC, BPD, Femur, HC GA by U/S24 w + 5 d ANNELISE by U/S:04/18/2025 Assigned:based on stated ANNELISE, selected on 01/01/2025 Assigned GA25 w + 5 d Assigned ANNELISE:04/11/2025 bsqlud434 d Biometry Standard BPD60.1 mm 24w 4d 8% Hadlock OFD77.3 mm 25w 2d 36% Taylor HC221.2 mm 24w 1d 1% Hadlock Cerebellum tr28.7 mm 25w 2d 36% Hill AC207.7 mm 25w 2d 29% Hadlock Femur44.5 mm 24w 5d 11% Hadlock Efkjvqi80.5 mm 24w 4d 11% Taylor HC / AC1.06 AIP458 g 24w 5d 14% Hadlock EFW (lb)1 lb EFW (oz)10 oz EFW by:Hadlock (HSO-XT-IA-FL) Extended Tibia39.4 mm 25w 0d 25% Taylor Pqvstb20.0 mm 24w 2d 17% Taylor Foot45.2 mm 10% Chitty Cefbjn14.5 mm 23w 5d 27% Taylor Ulna39.6 mm 25w 6d 37% Taylor Cav. septi pel. tr6.0 mm Vp5.1 mm CM5.8 mm 35% Nicolaides Nasal bone10.2 mm Head / Face / Neck Cephalic index0.78 41% Nicolaides Thorax / Lungs Thoracic rchu044.4 mm <1% [place] Thoracic area17.1 cm ThC [...] / HC0.20 FL / AC0.21 Other Structures WCL966 bpm General Evaluation Cardiac activity present. FHR [...] view:Appears normal SVC:normal IVC:normal 3-vessel view:Appears normal 1-vwugog-aaiovld view:Appears normal Cardiac axis:Normal Rt lung:Appears normal [...] normal RVOT view:Appears normal 3-vessel view:Appears normal 1-wgerah-txgeyhk view:Appears normal Aortic arch view:Appears normal Ductal [...] pulmonary artery B and M-Mode Measurements Thoracic vcyv495.4 mm <1% [place] Thoracic area17.1 cm ThC [...] Structures Uterus / Cervix Cervix:Visualized Approach:Transabdominal Cervical aqttlc50.0 mm Ovaries / Tubes / Adnexa Rt [...] Recommendation Follow-up scheduled in 5-6wks. Coding ======= Description:32280-78 Detailed Ultrasound Description:50832-28 Echo 2D, heart - initial Description:82805-08 Doppler echo color flow Application Services Manager: Tyra Andrade RDMS Physician: Donna Zhang MD [...] or is breathing): Full Support Care Teams Wet Process Miller Head Relationship Specialty Start Date End Date Provider, [place] [address] PCP - General 01/14/22
[2025-01-20 11:36] VITALS: BMI 23.8
[2025-01-20 12:08] LABS: Hematocrit 25.4 % (37.0-47.0); Hemoglobin 7.2 g/dL (12.2-16.2)
[2025-01-20] MEDS: IRON SUCROSE COMPLEX 200 MG in 0.9 % SODIUM CHLORIDE 100 ML 220 MG IV (12:57)
== END 2025-01-20 14:15 | disposition home or self-care (01) ==
LOC: OBOUT 11:19 → OB 11:21
PROVIDERS: PCP Nurse Practitioner Family; Visit Provider Nurse Practitioner Obstetrics & Gynecology
DX: O99.013 Anemia complicating pregnancy, third trimester (principal); D64.9 Anemia, unspecified; Z3A.28 28 weeks gestation of pregnancy
CPT/HCPCS: 36415; 59025; 85014; 85018; 96360; 99212; G0463; J1756

== ENCOUNTER 2025-02-01 13:20 | Outpatient (CLI) | payer MEDICAID, SELFPAY ==
[2025-02-01] MEDS: IRON SUCROSE COMPLEX 200 MG in 0.9 % SODIUM CHLORIDE 100 ML 220 MG IV (13:35)
[2025-02-01 13:36] VITALS: BP 127/68; PULSE 92; RESP 18; TEMP 36.4; O2SAT 98
[2025-02-01] MEDS: SODIUM CHLORIDE 0.9% 10ML FLUSH SYRINGE 10 ML IV (13:36)
[2025-02-01 14:20] VITALS: BP 125/66; PULSE 96; RESP 20; O2SAT 99
== END 2025-02-01 23:59 | disposition home or self-care (01) ==
LOC: INF 13:21
PROVIDERS: PCP Nurse Practitioner Family; Visit Provider Obstetrics & Gynecology
DX: O99.019 Anemia complicating pregnancy, unspecified trimester (principal); D64.9 Anemia, unspecified; Z3A.00 Weeks of gestation of pregnancy not specified
CPT/HCPCS: 96365; J1756

== ENCOUNTER 2025-02-05 15:33 | Outpatient (CLI) | payer MEDICAID, SELFPAY ==
--- OUTSIDE RECORDS SUMMARY | 2025-01-01 10:13 | XMS_ITS | Encounter Summary ---
Author Organization [facility] Address [address] [place] [id number] Care Team Providers Care Animal Pathology Teacher Name Role Phone Provider, No Known Primary Care Provider Unavail able Reason for Referral * Diagnostic Imaging (Routine) - Closed Specialty Diagnoses / Procedures Referred By Briana grey Referred To Contact Radiology Diagnoses Abnormal ultrasound Anomaly of heart of fetus affecting , antepartum, single or unspecified fetus History of delivery, currently , unspecified gestational age Procedures US [facility] Diagnostic [place] Luna Olivo DO [address] [place] [address] Phone: tel: fax: [facility] US PER DIAG CTR [address] [place] [address] Phone: tel: Referral ID Status Reason Start Date Expiration Date Visits Re quested Visits Authorized [id number] Closed 12/18/2024 03/19/2026 1 1 Reason for Visit * Diagnostic Imaging (Routine) - Closed Specialty Diagnoses / Procedures Referred By Contac matilda Referred To Contact Radiology Diagnoses Abnormal ultrasound Anomaly of heart of fetus affecting , antepartum, single or unspecified fetus History of delivery, currently , unspecified gestational age Procedures US [facility] Diagnostic [place] Luna Olivo DO [address] [place] [address] Phone: tel: fax: [facility] US PER DIAG CTR [address] [place] [address] Phone: tel: Referral ID Status Reason Start Date Expiration Date Visits Re quested Visits Authorized [id number] Closed 12/18/2024 03/19/2026 1 1 Encounter Details Date Type Department Care Team (Latest Contact Info) Description 01/01/2025 10:13 AM EDT - 01/01/2025 11:59 PM EDT Hospital Encounter [facility] US PER DIAG CTR [address] [place] [address] Luna Olivo DO [address] [facility] [address] [place] [address] Abnormal ultrasound; Anomaly of heart [...] more drinks on one occasion? Never 04/13/2022 [place] Depression Scale Answer Date Recorded [place] Depression Scale Total 1 04/14/2022 The thought [...] Care Team (Late st Contact Info) Description 02/15/2025 2:45 PM EDT Appointment [facility] PER DIAG CTR [address] [place] [address] 02/15/2025 2:45 PM EDT Office Visit [facility] MATERNAL MEDICINE [address] [facility] [address] [place] [address] documented as of this encounter Procedures Procedure Name Priority Date/Time Associated Diagnosis Comments [facility] Routine 01/01/2025 11:26 AM EDT Abnormal ultrasound Anomaly of heart of fetus affecting , antepartum, single or unspecified fetus History of delivery, currently , unspecified gestational age documented in this encounter Results * [facility] Diagnostic Center (01/01/2025 11:26 AM EDT) Anatomical Region Laterality Modality Ultrasound 01/01/2025 10:5 4 AM EDT Narrative 01/01/2025 11:28 AM EDT PAT NAME: DEBBIE MELARA [facility] REC#: [id number] DA: [id number] PAT GEND: F PAT TYPE: O EXAM ANTONINA: [id number] REF PHYS LUNA OLIVO Comparison Studies There [...] EFW (oz) 10 oz EFW by: Hadlock (RDQ-AQ-IM-FL) Extended Tibia 39.4 mm 25w 0d 25% Taylor Fibula 38.0 mm 24w 2d 17% Taylor Foot 45.2 mm 10% Chitty Radius 33.5 mm 23w 5d 27% Taylor Ulna 39.6 mm 25w 6d 37% Taylor Cav. septi pel. tr 6.0 mm Inflated Pad Buffer 5.1 mm CM 5.8 mm 35% Nicolaides [...] normal IVC: normal 3-vessel view: Appears normal 8-ovumam-elkixll view: Appears normal Cardiac axis: Normal Rt [...] view: Appears normal 3-vessel view: Appears normal 3-telzop-meqxvxw view: Appears normal Aortic arch view: Appears [...] by: Hola MV annulus diast Zscore by: Hoal PV annulus syst Zscore by: Hola AoV [...] Follow-up scheduled in 5-6wks. Coding ======= Description: 27303-54 Detailed Ultrasound Description: 10929-13 Echo 2D, heart - initial Description: 12533-25 Doppler echo color flow Pit Supervisor: Tyra Andrade RDMS Physician: Donna Zhang MD Electronically signed by: Donna Zhang MD at: 11:48 Procedure Note Donna Zhang MD - 01/01/2025 PAT NAME: DEBBIE MELARA MED REC#: [id number] DA: [id number] PAT GEND: F PAT TYPE: O EXAM ANTONINA: [id number] REF PHYS JAUNLUNA MATOS Comparison Studies There are no relevant prior studies to which this study is beingcompared Patient Status Outpatient Indication ======== Incomplete heart views, previous child with CHD (no surgery needed) Maternal Assessment Tynmia498 cm Height (ft)5 ft Height (in)1 in Emqjqy06 kg Weight (lb)123 lb BMI23.61 kg/m Method ======= Transabdominal ultrasound examination. View: Adequate view ========= Leal . Number of fetuses: 1 Dating ====== Method of dating:based on stated ANNELISE GA by prior w + 5 d ANNELISE by prior assessment:04/11/2025 Ultrasound examination on:01/01/2025 GA by U/S based upon:AC, BPD, Femur, HC GA by U/S24 w + 5 d ANNELISE by U/S:04/18/2025 Assigned:based on stated ANNELISE, selected on 01/01/2025 Assigned GA25 w + 5 d Assigned ANNELISE:04/11/2025 entpax389 d Biometry Standard BPD60.1 mm 24w 4d 8% Hadlock OFD77.3 mm 25w 2d 36% Taylor HC221.2 mm 24w 1d 1% Hadlock Cerebellum tr28.7 mm 25w 2d 36% Hill AC207.7 mm 25w 2d 29% Hadlock Femur44.5 mm 24w 5d 11% Hadlock Adobuul93.5 mm 24w 4d 11% Taylor HC / AC1.06 KMW063 g 24w 5d 14% Hadlock EFW (lb)1 lb EFW (oz)10 oz EFW by:Hadlock (CMM-GG-BL-FL) Extended Tibia39.4 mm 25w 0d 25% Taylor Iojcjv93.0 mm 24w 2d 17% Taylor Foot45.2 mm 10% Chitty Sgkdfr54.5 mm 23w 5d 27% Taylor Ulna39.6 mm 25w 6d 37% Taylor Cav. septi pel. tr6.0 mm Vp5.1 mm CM5.8 mm 35% Nicolaides Nasal bone10.2 mm Head / Face / Neck Cephalic index0.78 41% Nicolaides Thorax / Lungs Thoracic fuue930.4 mm <1% [place] Thoracic area17.1 cm ThC [...] / HC0.20 FL / AC0.21 Other Structures WSE716 bpm General Evaluation Cardiac activity present. FHR [...] view:Appears normal SVC:normal IVC:normal 3-vessel view:Appears normal 8-xsldmm-ntxlask view:Appears normal Cardiac axis:Normal Rt lung:Appears normal [...] normal RVOT view:Appears normal 3-vessel view:Appears normal 2-djulxh-yqixtba view:Appears normal Aortic arch view:Appears normal Ductal [...] pulmonary artery B and M-Mode Measurements Thoracic sqte709.4 mm <1% [place] Thoracic area17.1 cm ThC / AC0.70 Cardiac axis41 Cardiac circ83.4 mm Cardiac area5.4 cm CC / ThC0.57 CA / ThA0.32 RA length diast7.91 mm RA width diast6.83 mm RV width diast6.16 mm <1% [place]ley RV wall diast2.88 mm 88% Omalely LA length diast7.3 mm LA width syst4.74 [...] Structures Uterus / Cervix Cervix:Visualized Approach:Transabdominal Cervical pxhyva50.0 mm Ovaries / Tubes / Adnexa Rt [...] Recommendation Follow-up scheduled in 5-6wks. Coding ======= Description:22535-19 Detailed Ultrasound Description:44663-50 Echo 2D, heart - initial Description:49840-16 Doppler echo color flow Pit Supervisor: Tyra Andrade RDMS Physician: Donna Zhang MD Electronically signed by: Donna Zhang MD at: 11:48 us Luna Olivo DO [facility] ORDERABLES Edited Resul t - Final documented in this encounter Visit Diagnoses Diagnosis Abnormal ultrasound Anomaly of heart of fetus affecting , antepartum, single or unspecified fetus History of delivery, currently with history of pre-term labor , unspecified gestational age documented in this encounter Care Teams Animal Pathology Teacher Relationship Specialty Start Date End Date Provider, [place] [address] PCP - General 01/14/22 documented as of this encounter
--- OUTSIDE RECORDS SUMMARY | 2025-01-01 10:30 | XMS_ITS | Encounter Summary ---
Author Organization [facility] Address [address] [place] [phone] Care Team Providers Care Steward/Stewardess Third Name Role Phone Provider, No Known Primary Care Provider Unavail able Reason for Referral * Diagnostic Imaging (Routine) - Authorized Specialty Diagnoses / Procedures Referred By Contac t Referred To Contact Radiology Diagnoses Family history of congenital heart defect History of prior with IUGR 25 weeks gestation of Procedures [facility] Donna Zhang MD [address] [facility] [address] [place], [place] [address] Phone: tel: fax: Referral ID Status Reason Start Date Expiration Date V isits Requested Visits Authorized [id number] Authorized 01/01/2025 04/02/2026 1 1 Reason for Visit * Reason Comments incomplete heart views Encounter Details Date Type Department Care Team (Late st Contact Info) Description 01/01/2025 10:30 AM EDT Office Visit [facility] MATERNAL MEDICINE [address] [facility] [address] [place] [phone] Donna Zhang MD [address] [place] [address] Family history of congenital heart defect (Primary [...] more drinks on one occasion? Never 04/13/2022 [place] Depression Scale Answer Date Recorded [place] Depression Scale Total 1 04/14/2022 The thought [...] under imaging tab of patient chart in [facility] (Viewpoint report). Donna Zhang MD documented in this encounter Plan of Treatment Upcoming Encounters Date Type Department Care Team (Late st Contact Info) Description 02/15/2025 2:45 PM EDT Appointment [facility] [address] [place] [address] 02/15/2025 2:45 PM EDT Office Visit [facility] MATERNAL MEDICINE [address] [facility] [address] [place] [address] Scheduled Orders Name Type Priority Associated Diagnoses Orde r Schedule [facility] Imaging Routine Family history of congenital heart defect History of prior with IUGR 25 weeks gestation of Expected: 02/05/2025, Expires: 01/01/2026 documented as of this encounter Visit Diagnoses Diagnosis Family history of congenital heart defect- Primary History of prior with IUGR 25 weeks gestation of documented in this encounter Care Teams Steward/Stewardess Third Relationship Specialty Start Date End Date Provider, [place] [address] PCP - General 01/14/22 documented as of this encounter
--- OUTSIDE RECORDS SUMMARY | 2025-02-05 15:38 | XMS_ITS | Encounter Summary ---
Author Organization [facility] Address [address] [place] [address] Care Team Providers Care Chief Engineering Division Name Role Phone Provider, No Known Primary [...] more drinks on one occasion? Never 04/13/2022 [place] Depression Scale Answer Date Recorded [place] Depression Scale Total 1 04/14/2022 The thought [...] Info) Description 02/15/2025 2:45 PM EDT Appointment [facility] PER DIAG CTR [address] [place] [address] 02/15/2025 2:45 PM EDT Office Visit [facility] MATERNAL MEDICINE [address] [place] [address] documented as of this encounter Visit Diagnoses Not on filedocumented in this encounter Care Teams Chief Engineering Division Relationship Specialty Start Date End Date Provider, [place] [address] PCP - General 01/14/22 documented as of this encounter
--- OUTSIDE RECORDS SUMMARY | 2025-02-05 15:38 | XMS_ITS | Clinical Summary ---
Author Organization [facility] Address [address] [place] [address] Care Team Providers Care Fitting Room Attendant Name Role Phone Provider, No Known Primary [...] Inhale 1 puff As Needed. 03/09/2022 Active Active Problems Problem Noted Date Diagnosed Date Family history of congenital heart defect 2021 02/02/2022 Anxiety Asthma History of prior with IUGR Estimated Date of Delivery Comme nts Yes 04/11/2025 Date entered anna or to episode creation Resolved Problems Problem Noted Date Diagnosed Date Resolved Date IUGR (intrauterine growth re striction) affecting care of mother, third trimester, not applicable or unspecified fetus 04/13/202211/2024 IUGR (intrauterine growth re striction) affecting care of mother, third trimester, fetus 1 03/23/2022 01/01/2025 ventricular septal def ect affecting antepartum care of mother 03/16/2022 01/01/2025 Encounters Date Type Department Care Team Description 01/01/2025 10:30 AM EDT Office Visit [facility] MATERNAL MEDICINE [address] [place] [address] Donna Zhang MD Family history of congenital heart defect (Primary Dx); History of prior with IUGR ; 25 weeks gestation of 01/01/2025 10:13 AM EDT - 01/01/2025 11:59 PM EDT Hospital Encounter [facility] US PER DIAG CTR [address] [place] [address] Luna Olivo DO Abnormal ultrasound; [...] more drinks on one occasion? Never 04/13/2022 [place] Depression Scale Answer Date Recorded [place] Depression Scale Total 1 04/14/2022 The thought [...] Info) Description 02/15/2025 2:45 PM EDT Appointment [facility] PER DIAG CTR [address] [place] [address] 02/15/2025 2:45 PM EDT Office Visit [facility] MAT[facility]NAL MEDICINE [address] [facility] [address] [place] [address] Health Maintenance Due Date Last Done Comments [...] Procedure Name Priority Date/Time Associated Diagnosis Comments [facility] Routine 01/01/2025 11:26 AM EDT Abnormal ultrasound Anomaly of heart of fetus affecting , antepartum, single or unspecified fetus History of delivery, currently , unspecified gestational age from Last 3 Months Results * [facility] (01/01/2025 11:26 AM EDT) Anatomical Region Laterality Modality Ultrasound 01/01/2025 10:5 4 AM EDT Narrative 01/01/2025 11:28 AM EDT PAT NAME: DEBBIE MELARA [facility] REC#: [id number] DA: [id number] PAT GEND: F PAT TYPE: O EXAM ANTONINA: [id number] REF PHYS LUNA OLIVO Comparison Studies There [...] EFW (oz) 10 oz EFW by: Hadlock (BII-UX-JN-FL) Extended Tibia 39.4 mm 25w 0d 25% Taylor Fibula 38.0 mm 24w 2d 17% Taylor Foot 45.2 mm 10% Chitty Radius 33.5 mm 23w 5d 27% Taylor Ulna 39.6 mm 25w 6d 37% Taylor Cav. septi pel. tr 6.0 mm Cardiovascular Specialist 5.1 mm CM 5.8 mm 35% Nicolaides [...] normal IVC: normal 3-vessel view: Appears normal 2-hcoanb-uoiyldl view: Appears normal Cardiac axis: Normal Rt [...] view: Appears normal 3-vessel view: Appears normal 5-isbyuq-ezxzuhc view: Appears normal Aortic arch view: Appears [...] Omalley IV Septum diast 2.42 mm 42% Oamlley RV inlet 7.78 mm RVOT diam 5.90 [...] Follow-up scheduled in 5-6wks. Coding ======= Description: 85917-68 Detailed Ultrasound Description: 00668-93 Echo 2D, heart - initial Description: 22178-43 Doppler echo color flow Jinriksha Driver: Tyra Andrade RDMS Physician: Donna Zhang MD Electronically signed by: Donna Zhang MD at: 11:48 Procedure Note Donna Zhang MD - 01/01/2025 PAT NAME: DEBBIE MELARA [facility] REC#: [id number] DA: [id number] PAT GEND: F PAT TYPE: O EXAM ANTONINA: [id number] REF PHYS LUNA OLIVO Comparison Studies There are no relevant prior studies to which this study is beingcompared Patient Status Outpatient Indication ======== Incomplete heart views, previous child with CHD (no surgery needed) Maternal Assessment Lojpoh672 cm Height (ft)5 ft Height (in)1 in Uwyefp64 kg Weight (lb)123 lb BMI23.61 kg/m Method ======= Transabdominal ultrasound examination. View: Adequate view ========= Leal . Number of fetuses: 1 Dating ====== Method of dating:based on stated ANNELISE GA by prior umykeidpee18 w + 5 d ANNELISE by prior [...] Hadlock Femur44.5 mm 24w 5d 11% Hadlock Lybixgz33.5 mm 24w 4d 11% Taylor HC / AC1.06 MJS038 g 24w 5d 14% Hadlock EFW (lb)1 lb EFW (oz)10 oz EFW by:Hadlock (UED-IF-AO-FL) Extended Tibia39.4 mm 25w 0d 25% Taylor Pwkhil43.0 mm 24w 2d 17% Taylor Foot45.2 mm 10% Chitty Qmiprs15.5 mm 23w 5d 27% Taylor Ulna39.6 mm 25w 6d 37% Taylor Cav. septi pel. tr6.0 mm Vp5.1 mm CM5.8 mm 35% Nicolaides Nasal bone10.2 mm Head / Face / Neck Cephalic index0.78 41% Nicolaides Thorax / Lungs Thoracic pufi077.4 mm <1% [place] Thoracic area17.1 cm ThC [...] / HC0.20 FL / AC0.21 Other Structures VVU149 bpm General Evaluation Cardiac activity present. FHR [...] view:Appears normal SVC:normal IVC:normal 3-vessel view:Appears normal 7-ambetu-suedldn view:Appears normal Cardiac axis:Normal Rt lung:Appears normal [...] normal RVOT view:Appears normal 3-vessel view:Appears normal 5-hfjlkk-vlggfur view:Appears normal Aortic arch view:Appears normal Ductal [...] pulmonary artery B and M-Mode Measurements Thoracic sbhw145.4 mm <1% [place] Thoracic area17.1 cm ThC [...] Structures Uterus / Cervix Cervix:Visualized Approach:Transabdominal Cervical yqygor36.0 mm Ovaries / Tubes / Adnexa Rt [...] Recommendation Follow-up scheduled in 5-6wks. Coding ======= Description:12755-52 Detailed Ultrasound Description:34380-21 Echo 2D, heart - initial Description:01140-35 Doppler echo color flow Jinriksha Driver: Tyra Andrade RDMS Physician: Donna Zhang MD Electronically signed by: Donna Zhang MD at: 11:48 us Luna Geovani DO [facility] ORDERABLES Edited Resul t - Final from [...] or is breathing): Full Support Care Teams Fitting Room Attendant Relationship Specialty Start Date End Date Provider, [place] [address] PCP - General 01/14/22
[2025-02-05] MEDS: SODIUM CHLORIDE 0.9% 10ML FLUSH SYRINGE 10 ML IV (15:49)
[2025-02-05 15:50] VITALS: BP 119/73; PULSE 90; RESP 16; TEMP 36.4; O2SAT 98
[2025-02-05] MEDS: IRON SUCROSE COMPLEX 200 MG in 0.9 % SODIUM CHLORIDE 100 ML 220 MG IV (15:50)
[2025-02-05 16:38] VITALS: BP 123/66; PULSE 83; RESP 16; TEMP 36.4; O2SAT 98
== END 2025-02-05 23:59 | disposition home or self-care (01) ==
LOC: INF 15:34
PROVIDERS: PCP Nurse Practitioner Family; Visit Provider Obstetrics & Gynecology
DX: O99.012 Anemia complicating pregnancy, second trimester (principal); Z3A.00 Weeks of gestation of pregnancy not specified
CPT/HCPCS: 96365; J1756

== ENCOUNTER 2025-02-12 15:36 | Outpatient (CLI) | payer MEDICAID, SELFPAY ==
[2025-02-12] MEDS: IRON SUCROSE COMPLEX 200 MG in 0.9 % SODIUM CHLORIDE 100 ML 220 MG IV (15:44)
[2025-02-12 15:52] VITALS: BP 116/58; PULSE 73; RESP 18; O2SAT 99
[2025-02-12 16:22] VITALS: BP 109/65; PULSE 85
[2025-02-12] MEDS: SODIUM CHLORIDE 0.9% 10ML FLUSH SYRINGE 10 ML IV (16:25)
== END 2025-02-12 23:59 | disposition home or self-care (01) ==
LOC: INF 15:37
PROVIDERS: PCP Nurse Practitioner Family; Visit Provider Obstetrics & Gynecology
DX: O99.019 Anemia complicating pregnancy, unspecified trimester (principal); Z3A.00 Weeks of gestation of pregnancy not specified
CPT/HCPCS: 96365; J1756

== ENCOUNTER 2025-02-19 14:14 | Outpatient (CLI) | payer MEDICAID, SELFPAY ==
--- OUTSIDE RECORDS SUMMARY | 2025-01-01 10:13 | XMS_ITS | Encounter Summary ---
Author Organization [facility] Address [address] [place] [id number] Care Team Providers Care Welding Machine Setter Name Role Phone Provider, No Known Primary Care Provider Unavail able Reason for Referral * Diagnostic Imaging (Routine) - Closed Specialty Diagnoses / Procedures Referred By Briana grey Referred To Contact Radiology Diagnoses Abnormal ultrasound Anomaly of heart of fetus affecting , antepartum, single or unspecified fetus History of delivery, currently , unspecified gestational age Procedures [facility] Diagnostic Lopeno Luna Olivo DO [address] [place] [address] Phone: tel: fax: [facility] US PER DIAG CTR [address] [place] [address] Phone: tel: Referral ID Status Reason Start Date Expiration Date Visits Re quested Visits Authorized [id number] Closed 12/18/2024 03/19/2026 1 1 Reason for Visit * Diagnostic Imaging (Routine) - Closed Specialty Diagnoses / Procedures Referred By Contac matilda Referred To Contact Radiology Diagnoses Abnormal ultrasound Anomaly of heart of fetus affecting , antepartum, single or unspecified fetus History of delivery, currently , unspecified gestational age Procedures [facility] Diagnostic Lopeno Luna Olivo DO [address] [place] [address] Phone: tel: fax: [facility] US PER DIAG CTR [address] [place] [address] Phone: tel: Referral ID Status Reason Start Date Expiration Date Visits Re quested Visits Authorized [id number] Closed 12/18/2024 03/19/2026 1 1 Encounter Details Date Type Department Care Team (Latest Contact Info) Description 01/01/2025 10:13 AM EDT - 01/01/2025 11:59 PM EDT Hospital Encounter [facility] US PER DIAG CTR [address] [place] [address] Luna Olivo DO [address] [facility] [address] [place] [address] Abnormal ultrasound; Anomaly of heart [...] more drinks on one occasion? Never 04/13/2022 [place] Depression Scale Answer Date Recorded [place] Depression Scale Total 1 04/14/2022 The thought [...] Description 03/15/2025 3:00 PM EST Office Visit [facility] MATERNAL MEDICINE [address] [facility] [address] [place] [address] 03/15/2025 3:00 PM EST Appointment [facility] US PER DIAG CTR [address] [place] [address] documented as of this encounter Procedures Procedure Name Priority Date/Time Associated Diagnosis Comments [facility] Routine 01/01/2025 11:26 AM EDT Abnormal ultrasound Anomaly of heart of fetus affecting , antepartum, single or unspecified fetus History of delivery, currently , unspecified gestational age documented in this encounter Results * [facility] (01/01/2025 11:26 AM EDT) Anatomical Region Laterality Modality Ultrasound 01/01/2025 10:5 4 AM EDT Narrative 01/01/2025 11:28 AM EDT PAT NAME: DEBBIE MELARA MED REC#: [id number] DA: [id number] PAT GEND: F PAT TYPE: O EXAM ANTONINA: [id number] REF PHYS LUNA OLIVO Comparison Studies There [...] EFW (oz) 10 oz EFW by: Hadlock ([id number]) Extended Tibia 39.4 mm 25w 0d 25% Taylor Fibula 38.0 mm 24w 2d 17% Taylor Foot 45.2 mm 10% Chitty Radius 33.5 mm 23w 5d 27% Taylor Ulna 39.6 mm 25w 6d 37% Taylor Cav. septi pel. tr 6.0 mm Office Administrative Assistant 5.1 mm CM 5.8 mm 35% Nicolaides [...] normal IVC: normal 3-vessel view: Appears normal 1-wopamb-tlgkrvp view: Appears normal Cardiac axis: Normal Rt [...] view: Appears normal 3-vessel view: Appears normal 9-kkttig-kkffvhw view: Appears normal Aortic arch view: Appears [...] Follow-up scheduled in 5-6wks. Coding ======= Description: 15187-75 Detailed Ultrasound Description: 35368-85 Echo 2D, heart - initial Description: 47620-21 Doppler echo color flow Operations Developer: Tyra Andrade RDMS Physician: Donna Zhang MD Electronically signed by: Donna Zhang MD at: 11:48 Procedure Note Donna Zhang MD - 01/01/2025 PAT NAME: DEBBIE MELARA MED REC#: [id number] DA: [id number] PAT GEND: F PAT TYPE: O EXAM ANTONINA: [id number] REF PHYS JAUNLUNA MATOS Comparison Studies There are no relevant prior studies to which this study is beingcompared Patient Status Outpatient Indication ======== Incomplete heart views, previous child with CHD (no surgery needed) Maternal Assessment Deafnb991 cm Height (ft)5 ft Height (in)1 in Kzrmzl13 kg Weight (lb)123 lb BMI23.61 kg/m Method ======= Transabdominal ultrasound examination. View: Adequate view ========= Leal . Number of fetuses: 1 Dating ====== Method of dating:based on stated ANNELISE GA by prior [id number] w + 5 d ANNELISE by prior assessment:04/11/2025 Ultrasound examination on:01/01/2025 GA by U/S based upon:AC, BPD, Femur, HC GA by U/S24 w + 5 d ANNELISE by U/S:04/18/2025 Assigned:based on stated ANNELISE, selected on 01/01/2025 Assigned GA25 w + 5 d Assigned ANNELISE:04/11/2025 d Biometry Standard BPD60.1 mm 24w 4d 8% Hadlock OFD77.3 mm 25w 2d 36% Taylor HC221.2 mm 24w 1d 1% Hadlock Cerebellum tr28.7 mm 25w 2d 36% Hill AC207.7 mm 25w 2d 29% Hadlock Femur44.5 mm 24w 5d 11% Hadlock Luvibdm10.5 mm 24w 4d 11% Taylor HC / AC1.06 SHO379 g 24w 5d 14% Hadlock EFW (lb)1 lb EFW (oz)10 oz EFW by:Hadlock ([id number]-[id number]-RY-FL) Extended Tibia39.4 mm 25w 0d 25% Taylor Bxldjp67.0 mm 24w 2d 17% Taylor Foot45.2 mm 10% Chitty Pokcbh43.5 mm 23w 5d 27% Taylor Ulna39.6 mm 25w 6d 37% Taylor Cav. septi pel. tr6.0 mm Vp5.1 mm CM5.8 mm 35% Nicolaides Nasal bone10.2 mm Head / Face / Neck Cephalic index0.78 41% Nicolaides Thorax / Lungs Thoracic pews857.4 mm <1% [place] Thoracic area17.1 cm ThC [...] / HC0.20 FL / AC0.21 Other Structures TWY517 bpm General Evaluation Cardiac activity present. FHR [...] view:Appears normal SVC:normal IVC:normal 3-vessel view:Appears normal 9-ikljdf-onkxsmt view:Appears normal Cardiac axis:Normal Rt lung:Appears normal [...] normal RVOT view:Appears normal 3-vessel view:Appears normal 6-ndoxyd-ubarmrb view:Appears normal Aortic arch view:Appears normal Ductal [...] pulmonary artery B and M-Mode Measurements Thoracic qxtn055.4 mm <1% [place] Thoracic area17.1 cm ThC [...] diast Zscore (GA)-3.07 LV width diast Zscore by:Hola RV inlet Zscore (FL)-5.36 RV inlet Zscore [...] Recommendation Follow-up scheduled in 5-6wks. Coding ======= Description:35955-21 Detailed Ultrasound Description:45075-02 Echo 2D, heart - initial Description:16109-98 Doppler echo color flow Operations Developer: Tyra Andrade RDMS Physician: Donna Zhang MD Electronically signed by: Donna Zhang MD at: 11:48 us Luna Olivo DO [facility] US ORDERABLES Edited Resul t - Final documented in this encounter Visit Diagnoses Diagnosis Abnormal ultrasound Anomaly of heart of fetus affecting , antepartum, single or unspecified fetus History of delivery, currently with history of pre-term labor , unspecified gestational age documented in this encounter Care Teams Welding Machine Setter Relationship Specialty Start Date End Date Provider, [place] [address] PCP - General 01/14/22 documented as of this encounter
--- OUTSIDE RECORDS SUMMARY | 2025-01-01 10:30 | XMS_ITS | Encounter Summary ---
Author Organization [facility] Address [address] [place] [phone] Care Team Providers Care Electric Motor Winders Assembler Name Role Phone Provider, No Known Primary Care Provider Unavail able Reason for Referral * Diagnostic Imaging (Routine) - Closed Specialty Diagnoses / Procedures Referred By Contac t Referred To Contact Radiology Diagnoses Family history of congenital heart defect History of prior with IUGR 25 weeks gestation of Procedures [facility] Donna Zhang MD [address] [place] [id number] Phone: tel: fax: Referral ID Status Reason Start Date Expiration Date Visits Re quested Visits Authorized [id number] Closed 01/01/2025 04/02/2026 1 1 Reason for Visit * Reason Comments incomplete heart views Encounter Details Date Type Department Care Team (Late st Contact Info) Description 01/01/2025 10:30 AM EDT Office Visit [facility] MATERNAL MEDICINE [address] [facility] [address] [place] [phone] Donna Zhang MD [address] [place] [address] Family history of congenital heart defect (Primary [...] more drinks on one occasion? Never 04/13/2022 [place] Depression Scale Answer Date Recorded [place] Depression Scale Total 1 04/14/2022 The thought [...] under imaging tab of patient chart in [facility] (Viewpoint report). Donna Zhang MD documented in this encounter Plan of Treatment Upcoming Encounters Date Type Department Care Team (Late st Contact Info) Description 03/15/2025 3:00 PM EST Office Visit [facility] MEDIC[facility] [address] [facility] [address] [place] [address] 03/15/2025 3:00 PM EST Appointment [facility] [address] [place] [address] documented as of this encounter Results * [facility] (02/15/2025 2:19 PM EDT) Anatomical Region Laterality Modality Ultrasound 02/15/2025 1:56 PM EDT Narrative 02/15/2025 2:23 PM EDT PAT NAME: DEBBIE MELARA [facility] REC#: [id number] DA: [id number] PAT GEND: F PAT TYPE: O EXAM ANTOINNA: [id number] REF PHYS MEETA MORGAN Comparison Studies The [...] EFW (oz) 10 oz EFW by: Hadlock ([id number]) Extended Cav. septi pel. tr 4.5 mm Paradichlorobenzene Machine Operator 4.4 mm Head / Face / Neck [...] here in 4 weeks. Coding ====== Description: 48780-81 Follow Up Ultrasound Description: 22296-49 Doppler Umbilical Artery Description: 09850-79 BPP without NST Mill Order Scheduler: Angela Falcon RDMS Physician: Albert Mcconnell MD, FACOG Electronically signed by: Albert Mcconnell MD, FACOG at: 14:23 Procedure Note Dominic Mcconnell MD - 02/15/2025 PAT NAME: DEBBIE MELARA MED REC#: [id number] DA: 1995 PAT GEND: F PAT TYPE: O EXAM ANTONINA: [id number] REF PHYS MEETA MORGAN Comparison Studies The findings of this study are compared to the prior ultrasound studydated 01/01/25 Patient Status Outpatient Indication ======== IUGR. VSD. Maternal Assessment Qcyvvd917 cm Height (ft)5 ft Height (in)1 in Xqmbjb05 kg Weight (lb)129 lb BMI24.67 kg/m Method ======= Transabdominal ultrasound examination ========= Leal . Number of fetuses: 1 Dating ====== Method of dating:based on stated ANNELISE GA by prior w + 1 d ANNELISE by prior assessment:04/11/2025 Ultrasound examination on:02/15/2025 GA by U/S based upon:AC, BPD, Femur, HC GA by U/S30 w + 5 d ANNELISE by U/S:04/21/2025 Previous dating:based on stated ANNELISE, selected on 01/01/2025 Agreed ANNELISE of previous datin04/11/2025 Assigned:based on stated ANNELISE, selected on 02/15/2025 Assigned GA32 w + 1 d Assigned ANNELISE:04/11/2025 nequif452 d Biometry Standard BPD74.8 mm 30w 0d 2% Hadlock FWV593.0 mm 32w 2d 55% Taylor HC281.9 mm 30w 6d 2% Hadlock AC268.1 mm 30w 6d 16% Hadlock Femur59.6 mm 31w 0d 13% Hadlock HC / AC1.05 EFW1,657 g 30w 4d 11% Hadlock EFW (lb)3 lb EFW (oz)10 oz EFW by:Hadlock ([id number]) Extended Cav. septi pel. tr4.5 mm Vp4.4 mm Head / Face / Neck Cephalic index0.75 7% Nicolaides Extremities / Bony Struc FL / BPD0.80 FL / HC0.21 FL / AC0.22 Other Structures FNG287 bpm General Evaluation Cardiac activity present. FHR [...] scheduled here in 4 weeks. Coding ====== Description:49295-61 Follow Up Ultrasound Description:17291-83 Doppler Umbilical Artery Description:85528-21 BPP without NST Mill Order Scheduler: Angela Falcon RDVT Physician: Albert Mcconnell MD, FACOG Electronically signed [...] of documented in this encounter Care Teams Electric Motor Winders Assembler Relationship Specialty Start Date End Date Provider, [place] [address] PCP - General 01/14/22 documented as of this encounter
--- OUTSIDE RECORDS SUMMARY | 2025-02-15 13:40 | XMS_ITS | Encounter Summary ---
Author Organization [facility] Address [address] [place] [address] Care Team Providers Care Scratcher Name Role Phone Provider, No Known Primary Care Provider Unavail able Reason for Referral * Diagnostic Imaging (Routine) - Closed Specialty Diagnoses / Procedures Referred By Briana grey Referred To Contact Radiology Diagnoses Family history of congenital heart defect History of prior with IUGR 25 weeks gestation of Procedures [facility] Diagnostic [place] Donna Zhang MD [address] [place] [address] Phone: tel: fax: Referral ID Status Reason Start Date Expiration Date Visits Re quested Visits Authorized [id number] Closed 01/01/2025 04/02/2026 1 1 Reason for Visit * Diagnostic Imaging (Routine) - Closed Specialty Diagnoses / Procedures Referred By Briana grey Referred To Contact Radiology Diagnoses Family history of congenital heart defect History of prior with IUGR 25 weeks gestation of Procedures [facility] Donna Zhang MD [address] [place] [id number] Phone: tel: fax: Referral ID Status Reason Start Date Expiration Date Visits Re quested Visits Authorized [id number] Closed 01/01/2025 04/02/2026 1 1 Encounter Details Date Type Department Care Team (Late st Contact Info) Description 02/15/2025 1:40 PM EDT - 02/15/2025 11:59 PM EDT Hospital Encounter [facility] US PER DIAG CTR [address] [place] [address] Donna Zhang MD [address] [place] [address] Family history of congenital heart defect; History [...] more drinks on one occasion? Never 04/13/2022 [place] Depression Scale Answer Date Recorded [place] Depression Scale Total 1 04/14/2022 The thought [...] Description 03/15/2025 3:00 PM EST Office Visit [facility] MATERNAL MEDICINE [address] [facility] [address] [place] [address] 03/15/2025 3:00 PM EST Appointment [facility] PER DIAG CTR [address] [place] [address] documented as of this encounter Procedures Procedure Name Priority Date/Time Associated Diagnosis Comments [facility] Routine 02/15/2025 2:19 PM EDT Family history of congenital heart defect History of prior with IUGR 25 weeks gestation of documented in this encounter Results * [facility] (02/15/2025 2:19 PM EDT) Anatomical Region Laterality Modality Ultrasound 02/15/2025 1:56 PM EDT Narrative 02/15/2025 2:23 PM EDT PAT NAME: DEBBIE MELARA [facility] REC#: [id number] DA: [id number] PAT GEND: F PAT TYPE: O EXAM ANTONINA: [id number] REF PHYS HUSAM MORGANFER Comparison Studies The [...] EFW (oz) 10 oz EFW by: Hadlock (QLS-DC-ML-FL) Extended Cav. septi pel. tr 4.5 mm Aco Coordinator 4.4 mm Head / Face / Neck [...] here in 4 weeks. Coding ====== Description: 94213-18 Follow Up Ultrasound Description: 76807-45 Doppler Umbilical Artery Description: 84759-67 BPP without NST Melt Down Furnace Operator: Angela Falcon [facility] Physician: Albert Mcconnell MD, FACOG Electronically signed by: Albert Mcconnell MD, FACOG at: 14:23 Procedure Note Dominic Mcconnell MD - 02/15/2025 PAT NAME: DEBBIE MELARA MED REC#: [id number] DA: [id number] PAT GEND: F PAT TYPE: O EXAM ANTONINA: [id number] REF PHYS MEETA MORGAN Comparison Studies The findings of this study are compared to the prior ultrasound studydated 01/01/25 Patient Status Outpatient Indication ======== IUGR. VSD. Maternal Assessment Utsxgh845 cm Height (ft)5 ft Height (in)1 in Xfjvbf32 kg Weight (lb)129 lb BMI24.67 kg/m Method ======= Transabdominal ultrasound examination ========= Leal . Number of fetuses: 1 Dating ====== Method of dating:based on stated ANNELISE GA by prior gprqtswyjh31 w + 1 d ANNELISE by prior [...] Standard BPD74.8 mm 30w 0d 2% Hadlock GTD416.0 mm 32w 2d 55% Taylor HC281.9 mm 30w 6d 2% Hadlock AC268.1 mm 30w 6d 16% Hadlock Femur59.6 mm 31w 0d 13% Hadlock HC / AC1.05 EFW1,657 g 30w 4d 11% Hadlock EFW (lb)3 lb EFW (oz)10 oz EFW by:Hadlock (QEX-VD-KO-FL) Extended Cav. septi pel. tr4.5 mm Vp4.4 mm Head / Face / Neck Cephalic index0.75 7% Nicolaides Extremities / Bony Struc FL / BPD0.80 FL / HC0.21 FL / AC0.22 Other Structures PBJ464 bpm General Evaluation Cardiac activity present. FHR [...] scheduled here in 4 weeks. Coding ====== Description:89475-95 Follow Up Ultrasound Description:74526-04 Doppler Umbilical Artery Description:58265-03 BPP without NST Melt Down Furnace Operator: Angela Falcon RDMS Physician: Albert Mcconnell MD, FACOG Electronically signed by: Albert Mcconnell MD, FACOG at: 14:23 us Donna Zhang MD [facility] ORDERABLES Final Res ult documented in this encounter Visit Diagnoses Diagnosis Family history of congenital heart defect History of prior with IUGR 25 weeks gestation of documented in this encounter Care Teams Scratcher Relationship Specialty Start Date End Date Provider, [place] [address] PCP - General 01/14/22 documented as of this encounter
--- OUTSIDE RECORDS SUMMARY | 2025-02-15 14:45 | XMS_ITS | Encounter Summary ---
Author Organization [facility] Address [address] [place] [phone] Care Team Providers Care Accounts Specialist Name Role Phone Provider, No Known Primary Care Provider Unavail able Reason for Referral * Diagnostic Imaging (Routine) - Authorized Specialty Diagnoses / Procedures Referred By Contac t Referred To Contact Radiology Diagnoses History of prior with IUGR Family history of congenital heart defect 32 weeks gestation of Procedures [facility] Dominic Mcconnell MD [address] [facility] [address] [place] [address] Phone: tel: fax: [facility] US PER DIAG [facility] [address] [place] [address] Phone: tel: Referral ID Status Reason Start Date Expiration Date V isits Requested Visits Authorized [id number] Authorized 02/15/2025 05/17/2026 1 1 Reason for Visit * Reason Comments prev c/w CHD Encounter Details Date Type Department Care Team (Late st Contact Info) Description 02/15/2025 2:45 PM EDT Office Visit [facility] MATERNAL MEDICINE [address] [facility] [address] [place] [address] [phone] Dominic Mcconnell MD [address] [facility] [address] [place] [phone] History of prior with IUGR (Primary Dx); [...] more drinks on one occasion? Never 04/13/2022 [place] Depression Scale Answer Date Recorded [place] Depression Scale Total 1 04/14/2022 The thought [...] notices any decreased movement. Orders: - [facility]; Future 2. Family history of congenital heart defect - [facility]; Future 3. 32 weeks gestation of - [facility]; Future Follow Up Return [...] or CVS. Dominic Mcconnell MD Maternal Medicine, [facility] [place] 02/15/2025 * Dominic Mcconnell MD - 02/15/2025 [...] Description 03/15/2025 3:00 PM EST Office Visit [facility] [facility] [address] [place] [address] 03/15/2025 3:00 PM EST Appointment [facility] PER DIAG CTR [address] [place] [address] Scheduled Orders Name Type Priority Associated Diagnoses Orde r Schedule [facility] Imaging Routine History of prior with IUGR Family history of congenital heart defect 32 weeks gestation of Expected: 03/15/2025, Expires: 02/15/2026 documented as of this encounter Visit Diagnoses Diagnosis History of prior with IUGR - Primary Family history of congenital heart defect 32 weeks gestation of documented in this encounter Care Teams Accounts Specialist Relationship Specialty Start Date End Date Provider, [place] [address] PCP - General 01/14/22 documented as of this encounter
[2025-02-19 14:29] VITALS: BP 133/64; PULSE 95; RESP 16; TEMP 36.6; O2SAT 98
[2025-02-19] MEDS: SODIUM CHLORIDE 0.9% 10ML FLUSH SYRINGE 10 ML IV (14:32)
[2025-02-19] MEDS: IRON SUCROSE COMPLEX 200 MG in 0.9 % SODIUM CHLORIDE 100 ML 220 MG IV (14:33)
--- OUTSIDE RECORDS SUMMARY | 2025-02-19 15:06 | XMS_ITS | Clinical Summary ---
Author Organization [facility] Address [address] [place] [address] Care Team Providers Care Sales Representative Business Courses Name Role Phone Provider, No Known Primary [...] Anxiety Asthma History of prior with IUGR Assessment & Plan (02/15/2025 2:16 PM EDT): Patient returns for follow-up for complicated by history of intrauterine growth restriction and a previous . Additionally previous had a child with a VSD. Patient reports no complications since her last visit and notes [...] increase nutrition. The patient reports that she does not smoke or vape. We will rescan the patient again in 4 weeks time to assess growth and wellbeing and to determine if there is any need for early delivery. At the current time I do not see any findings that would necessitate delivery prior to 39 weeks gestation. Patient was counseled extensively regarding movement will contact her provider immediately if she notices any decreased movement. Estimated Date of Delivery Comme nts Yes [...] Encounters Date Type Department Care Team Description 02/15/2025 2:45 PM EDT Office Visit [facility] MATERNAL MEDICINE [address] [phone] Dominic Mcconnell MD History of prior with IUGR (Primary Dx); Family history of congenital heart defect; 32 weeks gestation of 02/15/2025 1:40 PM EDT - 02/15/2025 11:59 PM EDT Hospital Encounter [facility] US PER DIAG CTR [address] [place] [phone] Donna Zhang MD Family history of congenital heart defect; History of prior with IUGR ; 25 weeks gestation of Discharge Disposition: Home or Self Care 02/15/2025 Travel 01/01/2025 10:30 AM EDT Office Visit [facility] MATERNAL MEDICINE [address] [phone] Donna Zhang MD Family history of congenital heart defect (Primary Dx); History of prior with IUGR ; 25 weeks gestation of 01/01/2025 10:13 AM EDT - 01/01/2025 11:59 PM EDT Hospital Encounter [facility] US PER DIAG CTR [address] [place] [address] Luna Olivo DO Abnormal ultrasound; [...] more drinks on one occasion? Never 04/13/2022 [place] Depression Scale Answer Date Recorded [place] Depression Scale Total 1 04/14/2022 The thought [...] Pressure 127/61 02/15/2025 1:49 PM EDT Pulse 64 04/15/2022 7:17 AM EST Temperature 36.8 C (98.3 F) 04/15/2022 7:17 AM EST Respiratory Rate 16 04/15/2022 7:17 AM EST Oxygen Saturation - - Inhaled Oxygen Concentration - - Weight 58.6 kg (129 lb 3.2 oz) 02/15/2025 1:49 P M EDT Height 154.9 cm (5' 1 ) 01/01/2025 10:35 AM EDT Body Mass Index 24.41 01/01/2025 10:35 AM EDT Plan of Treatment Upcoming Encounters Date Type Department Care Team (Late st Contact Info) Description 03/15/2025 3:00 PM EST Office Visit [facility] MATERNAL MEDICINE [address] [facility] [address] [place] [address] 03/15/2025 3:00 PM EST Appointment [facility] US PER DIAG CTR [address] [place] [address] Health Maintenance Due Date Last Done Comments [...] Procedure Name Priority Date/Time Associated Diagnosis Comments [facility] Routine 02/15/2025 2:19 PM EDT Family history of congenital heart defect History of prior with IUGR 25 weeks gestation of [facility] Routine 01/01/2025 11:26 AM EDT Abnormal ultrasound Anomaly of heart of fetus affecting , antepartum, single or unspecified fetus History of delivery, currently , unspecified gestational age from Last 3 Months Results * [facility] (02/15/2025 2:19 PM EDT) Only the most recent of2 resultswithin the time period is included. Anatomical Region Laterality Modality Ultrasound 02/15/2025 1:56 PM EDT Narrative 02/15/2025 2:23 PM EDT PAT NAME: DEBBIE MELARA [facility] REC#: [id number] DA: [id number] PAT GEND: F PAT TYPE: O EXAM ANTONINA: [id number] REF PHYS LUNA OLIVO Comparison Studies The findings of this study [...] EFW (oz) 10 oz EFW by: Hadlock ([id number]) Extended Cav. septi pel. tr 4.5 mm Biomedical Technician 4.4 mm Head / Face / Neck [...] here in 4 weeks. Coding ====== Description: 35656-06 Follow Up Ultrasound Description: 00609-73 Doppler Umbilical Artery Description: 16997-96 BPP without NST Auricular Detoxification Specialist: Angela Falcon RDMS Physician: Albert Mcconnell MD, FACOG Electronically signed by: Albert Mcconenll MD, FACOG at: 14:23 Procedure Note Dominic Mcconnell MD - 02/15/2025 PAT NAME: DEBBIE MELARA MED REC#: [id number] DA: [id number] PAT GEND: F PAT TYPE: O EXAM ANTONINA: [id number] REF PHYS LUNA OLIVO Comparison Studies The findings of this study are compared to the prior ultrasound studydated 01/01/25 Patient Status Outpatient Indication ======== IUGR. VSD. Maternal Assessment Jlshhh527 cm Height (ft)5 ft Height (in)1 in Xwqozx67 kg Weight (lb)129 lb BMI24.67 kg/m Method ======= Transabdominal ultrasound examination ========= Leal . Number of fetuses: 1 Dating ====== Method of dating:based on stated ANNELISE GA by prior [id number] w + 1 d ANNELISE by prior [...] Standard BPD74.8 mm 30w 0d 2% Hadlock QSS430.0 mm 32w 2d 55% Taylor HC281.9 mm 30w 6d 2% Hadlock AC268.1 mm 30w 6d 16% Hadlock Femur59.6 mm 31w 0d 13% Hadlock HC / AC1.05 EFW1,657 g 30w 4d 11% Hadlock EFW (lb)3 lb EFW (oz)10 oz EFW by:Hadlock (ISY-[id number]-FL) Extended Cav. septi pel. tr4.5 mm Vp4.4 mm Head / Face / Neck Cephalic index0.75 7% Nicolaides Extremities / Bony Struc FL / BPD0.80 FL / HC0.21 FL / AC0.22 Other Structures [id number] bpm General Evaluation Cardiac activity present. FHR [...] scheduled here in 4 weeks. Coding ====== Description:93005-44 Follow Up Ultrasound Description:98805-24 Doppler Umbilical Artery Description:71838-02 BPP without NST Auricular Detoxification Specialist: Angela Falcon RDMS Physician: Albert Mcconnell MD, FACOG Electronically signed by: Albert Mcconnell MD, FACOG at: 14:23 us Donna Zhang MD IMG US ORDERABLES Final Res ult from Last 3 Months Insurance [facility] MEDICAID Advance Directives * CPR (Attempt to [...] or is breathing): Full Support Care Teams Sales Representative Business Courses Relationship Specialty Start Date End Date Provider, [place] [address] PCP - General 01/14/22
--- OUTSIDE RECORDS SUMMARY | 2025-02-19 15:06 | XMS_ITS | Encounter Summary ---
Author Organization [facility] Address [address] [place] [address] Care Team Providers Care Pmo Manager Name Role Phone Provider, No Known [...] more drinks on one occasion? Never 04/13/2022 [place] Depression Scale Answer Date Recorded [place] Depression Scale Total 1 04/14/2022 The thought [...] Description 03/15/2025 3:00 PM EST Office Visit [facility] MATERNAL MEDICINE [address] [place] [address] 03/15/2025 3:00 PM EST Appointment [facility] US PER DIAG CTR [address] [place] [address] documented as of this encounter Visit Diagnoses Not on filedocumented in this encounter Care Teams Pmo Manager Relationship Specialty Start Date End Date Provider, [place] [address] PCP - General 01/14/22 documented as of this encounter
--- OUTSIDE RECORDS SUMMARY | 2025-02-19 15:06 | XMS_ITS | Encounter Summary ---
Author Organization [facility] Address [address] [place] [address] Care Team Providers Care Head Of Insight Name Role Phone Provider, No Known Primary Care Provider Unavail able Encounter Details Date Type Department Care Team (Latest Contact Info) Description 02/15/2025 Travel Social History Tobacco Use Types Packs/Day [...] more drinks on one occasion? Never 04/13/2022 [place] Depression Scale Answer Date Recorded [place] Depression Scale Total 1 04/14/2022 The thought [...] Description 03/15/2025 3:00 PM EST Office Visit [facility] MATERNAL MEDICINE [address] [place] [address] 03/15/2025 3:00 PM EST Appointment [facility] US PER DIAG [facility] [address] [place] [address] documented as of this encounter Visit Diagnoses Not on filedocumented in this encounter Care Teams Head Of Insight Relationship Specialty Start Date End Date Provider, [place] [address] PCP - General 01/14/22 documented as of this encounter
[2025-02-19 15:18] VITALS: BP 104/60; PULSE 84; RESP 16; TEMP 36.6; O2SAT 98
== END 2025-02-19 23:59 | disposition home or self-care (01) ==
LOC: INF 14:15
PROVIDERS: PCP Obstetrics & Gynecology; Visit Provider Obstetrics & Gynecology
DX: O99.019 Anemia complicating pregnancy, unspecified trimester (principal); Z3A.00 Weeks of gestation of pregnancy not specified
CPT/HCPCS: 96365; J1756

== ENCOUNTER 2025-02-26 14:20 | Outpatient (CLI) | payer MEDICAID, SELFPAY ==
--- OUTSIDE RECORDS SUMMARY | 2025-01-01 09:13 | XMS_ITS | Encounter Summary ---
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 Name Role Phone Provider, No Known Primary Care Provider Unavail able Reason for Referral * Diagnostic Imaging (Routine) - Closed Specialty Diagnoses / Procedures Referred By Briana grey Referred To Contact Radiology Diagnoses Abnormal ultrasound Anomaly of heart of fetus affecting , antepartum, single or unspecified fetus History of delivery, currently , unspecified gestational age Procedures [facility] [place] Luna Olivo DO [address] [place] [address] Phone: tel: fax: [facility] [address] [place] [address] Phone: tel: Referral ID Status Reason Start Date Expiration Date Visits Re quested Visits Authorized [id number] Closed 12/18/2024 03/19/2026 1 1 Reason for Visit * Diagnostic Imaging (Routine) - Closed Specialty Diagnoses / Procedures Referred By Contac matilda Referred To Contact Radiology Diagnoses Abnormal ultrasound Anomaly of heart of fetus affecting , antepartum, single or unspecified fetus History of delivery, currently , unspecified gestational age Procedures [facility] [place] Luna Olivo DO [address] [place] [address] Phone: tel: fax: [facility] [address] [place] [address] Phone: tel: Referral ID Status Reason Start Date Expiration Date Visits Re quested Visits Authorized [id number] Closed 12/18/2024 03/19/2026 1 1 Encounter Details Date Type Department Care Team (Latest Contact Info) Description 01/01/2025 10:13 AM EDT - 01/01/2025 11:59 PM EDT Hospital Encounter [facility] [address] [place] [address] Luna Olivo DO [address] [facility] [address] [place] [address] Abnormal ultrasound; Anomaly of heart of fetus affecting , antepartum, single or unspecified fetus; History of delivery, currently ; , unspecified gestational age Discharge Disposition: Home or Self Care Social History Tobacco Use Types Packs/Day Years Used Date Smoking Tobacco: Never Smokeless Tobacco: Never Alcohol Use Standard Drinks/Week Comments Never 0 [...] more drinks on one occasion? Never 04/13/2022 [place] Depression Scale Answer Date Recorded [place] Depression Scale Total 1 04/14/2022 The thought of harming myself has occurred to me . Unrecognized value 04/14/2022 Abuse Screen Answer Date Recorded Feels Unsafe at Home or Work/School no 04/13/2022 Feels Threatened by Someone no 03/26 Does Anyone Try to Keep You From Having Contact with Others or Doing Things Outside Your Home? no 04/13/2022 Physical Signs of Abuse Present no 04/13/2022 Disabilities Answer Date Recorded Difficulty Concentrating, Remembering or Making Decisions no 04/13/2022 Difficulty Managing Errands Independently no 04/13/2022 Estimated Date of Delivery Comme nts Yes 04/11/2025 Date entered anna or to episode creation Sex and Gender Information Value Date Recorded Sex Assigned at Not on file Legal Sex Female 10:34 AM EDT Gender Identity Not on file Sexual Orientation Not on file documented as of this encounter Medications at Time of Discharge famotidine (PEPCID) 20 MG tablet Take 1 tablet by mouth 2 (Two) Times a Day. 12/01/2021 Vit-Fe Fumarate-FA ( 27-) 27-1 MG tablet tablet Take 1 tablet by mouth Daily. ProAir HFA 108 (90 Base) MCG/ACT inhaler Inhale 1 puff As Needed. 03/09/2022 documented as of this encounter Plan of Treatment Upcoming Encounters Date Type Department Care Team (Late st Contact Info) Description 03/15/2025 3:00 PM EST Office Visit [facility] [address] [facility] [address] [place] [id number] 03/15/2025 3:00 PM EST Appointment [facility] [address] [place] [id number] documented as of this encounter Procedures Procedure Name Priority Date/Time Associated Diagnosis Comments [facility] Routine 01/01/2025 11:26 AM EDT Abnormal ultrasound Anomaly of heart of fetus affecting , antepartum, single or unspecified fetus History of delivery, currently , unspecified gestational age documented in this encounter Results * [facility] (01/01/2025 11:26 AM EDT) Anatomical Region Laterality Modality Ultrasound 01/01/2025 10:5 4 AM EDT Narrative 01/01/2025 11:28 AM EDT PAT NAME: DEBBIE MELARA MED REC#: [id number] DA: [id number] PAT GEND: F PAT TYPE: O EXAM ANTONINA: [id number] REF PHYS LUNA OLIVO Comparison Studies There are no relevant prior studies to which this study is being compared Patient Status Outpatient Indication ======== Incomplete heart views, previous child with CHD (no surgery needed) Maternal Assessment Height 154 cm Height (ft) 5 ft Height (in) 1 in Weight 56 kg Weight (lb) 123 lb BMI 23.61 kg/m Method ======= Transabdominal ultrasound examination. View: Adequate view ========= Leal . Number of fetuses: 1 Dating ====== Method of dating: based on stated ANNELISE GA by prior assessment 25 w + 5 d ANNELISE by prior assessment: 04/11/2025 Ultrasound examination on: 01/01/2025 GA by U/S based upon: AC, BPD, Femur, HC GA by U/S 24 w + 5 d ANNELISE by U/S: 04/18/2025 Assigned: based on stated ANNELISE, selected on 01/01/2025 Assigned GA 25 w + 5 d Assigned ANNELISE: 04/11/2025 length 280 d Biometry Standard BPD 60.1 mm 24w 4d 8% Hadlock OFD 77.3 mm 25w 2d 36% Taylor HC 221.2 mm 24w 1d 1% Hadlock Cerebellum tr 28.7 mm 25w 2d 36% Hill AC 207.7 mm 25w 2d 29% Hadlock Femur 44.5 mm 24w 5d 11% Hadlock Humerus 40.5 mm 24w 4d 11% Taylor HC / AC 1.06 EFW 751 g 24w 5d 14% Hadlock EFW (lb) 1 lb EFW (oz) 10 oz EFW by: Hadlock ([id number]-[id number]) Extended Tibia 39.4 mm 25w 0d 25% Taylor Fibula 38.0 mm 24w 2d 17% Taylor Foot 45.2 mm 10% Chitty Radius 33.5 mm 23w 5d 27% Taylor Ulna 39.6 mm 25w 6d 37% Taylor Cav. septi pel. tr 6.0 mm Dag Coater 5.1 mm CM 5.8 mm 35% Nicolaides Nasal bone 10.2 mm Head / Face / Neck Cephalic index 0.78 41% Nicolaides Thorax / Lungs Thoracic circ 146.4 mm <1% [place] Thoracic area 17.1 cm ThC / AC 0.70 Heart / Great Vessels Cardiac axis 41 Cardiac circ 83.4 mm Cardiac area 5.4 cm CC / ThC 0.57 CA / Pat 0.32 PA main 3.93 mm Ductus art. 5.20 mm >99% Omalley Rt PA branch 3.54 mm 83% Alen Lt PA branch 3.69 mm 89% Alen Ao asc 3.69 mm Ao isthmus 3.0 mm <1% Alen Ao desc 2.86 mm McGoon Index mod. 2.5 PA main / Ao asc 1.07 Ao isthmus / Ductus art. 0.58 IVC 3.57 mm SVC 3.15 mm Extremities / Bony Struc FL / BPD 0.74 FL / HC 0.20 FL / AC 0.21 Other Structures FHR 141 bpm General Evaluation Cardiac activity present. FHR 141 bpm. movements present. Presentation cephalic. Placenta Placental site: anterior fundal posterior. Umbilical cord Cord vessels: 3 vessel cord. Insertion site: placental insertion: normal. Amniotic fluid Amount of AF: normal. MVP 4.9 cm. FRANCINE 13.9 cm. Q1 4.9 cm, Q2 2.8 cm, Q3 3.4 cm, Q4 2.8 cm. Anatomy Cranium: Appears normal Midline falx: Appears normal Cavum septi pellucidi: Appears normal Cerebellum: Appears normal Cisterna magna: Appears normal Head / Neck Rt lateral ventricle: Appears normal Lt lateral ventricle: Appears normal Rt choroid plexus: Appears normal Lt choroid plexus: Appears normal Vermis: Appears normal Neck: Appears normal Lips: Appear normal Profile: Appears normal Nose: Appears normal Face Nose: Nasal bone present Palate: Appears normal Orbits: Appears normal Lens: Normal 4-chamber view: Appears normal RVOT view: Appears normal LVOT view: Appears normal Heart / Thorax Aortic arch view: Appears normal Ductal arch view: Appears normal SVC: normal IVC: normal 3-vessel view: Appears normal 0-lwgddj-blukkje view: Appears normal Cardiac axis: Normal Rt lung: Appears normal Lt lung: normal Diaphragm: Appears normal Diaphragm: Intact Cord insertion: Appears normal Stomach: Appears normal Bladder: Appears normal Abdomen Rt kidney: normal Lt kidney: normal Liver: normal Liver: homogeneous echotexture Small bowel: normal Large bowel: normal Cervical spine: Appears normal Thoracic spine: Appears normal Lumbar spine: Appears normal Sacral spine: Appears normal Arms: Appears normal Legs: Appears normal Rt upper arm: Appears normal Rt forearm: Appears normal Rt hand: Appears normal Lt upper arm: Appears normal Lt forearm: Appears normal Lt hand: Appears normal Rt upper leg: Appears normal Rt lower leg: Appears normal Rt foot: Appears normal Lt upper leg: Appears normal Lt lower leg: Appears normal Lt foot: Appears normal Gender: male Wants to know gender: yes Echocardiogram 2D Echo (Qualitatively) 4-chamber view: Appears normal LVOT view: Appears normal RVOT view: Appears normal 3-vessel view: Appears normal 0-shoylx-dftdzvw view: Appears normal Aortic arch view: Appears normal Ductal arch view: Appears normal SVC: normal IVC: normal Cardiac axis: Normal Venous-atrial connections: normal size and morphology AV connections: normal alignment VA connections: normal size and morphology Pulmonary veins: normal size and morphology Right atrium: normal size and morphology Left atrium: normal size and morphology Atrial septum: normal size and morphology Foramen ovale: normal (in the central third/half, flap valve in left atrium) Right ventricle: normal size and morphology Left ventricle: normal size and morphology Ventricular septum: ventricular septum intact (apex to crux) Tricuspid valve: normal size and morphology Mitral valve: normal size and morphology Cross-over gr. arteries: anterior great artery (confirmed to be the pulmonary artery by its branching) which crosses the course of the proximal aorta, indicative of normal relationship of the great arteries Main PA: the main pulmonary artery can be seen bifurcating into the ductus arteriosus and the right pulmonary artery B and M-Mode Measurements Thoracic circ 146.4 mm <1% [place] Thoracic area 17.1 cm ThC / AC 0.70 Cardiac axis 41 Cardiac circ 83.4 mm Cardiac area 5.4 cm CC / ThC 0.57 CA / Pat 0.32 RA length diast 7.91 mm RA width diast 6.83 mm RV width diast 6.16 mm <1% Omalley RV wall diast 2.88 mm 88% Omalley LA length diast 7.3 mm LA width syst 4.74 mm <1% Omalley LV width diast 5.73 mm <1% Omalley LV wall diast 3.02 mm 95% Omalley IV Septum diast 2.42 mm 42% Omalley RV inlet 7.78 mm RVOT diam 5.90 mm RVOT area 27.0 mm LV inlet 12.76 mm LVOT diam 5.4 mm LVOT area 23.0 mm PA main 3.93 mm Ductus art. 5.20 mm >99% Omalley Rt PA branch 3.54 mm 83% Alen Lt PA branch 3.69 mm 89% Alen Ao asc 3.69 mm Ao isthmus 3.0 mm <1% Alen Ao desc 2.86 mm McGoon Index mod. 2.5 PA main / Ao asc 1.07 Ao isthmus / Ductus art. 0.58 IVC 3.57 mm SVC 3.15 mm RV width diast Zscore (FL) -3.04 RV width diast Zscore (BPD) -2.49 RV width diast Zscore (GA) -3.16 RV width diast Zscore by: Hola LV width diast Zscore (FL) -3.33 LV width diast Zscore (BPD) -2.46 LV width diast Zscore (GA) -3.07 LV width diast Zscore by: Hola RV inlet Zscore (FL) -5.36 RV inlet Zscore (BPD) -4.55 RV inlet Zscore (GA) -5.02 RV inlet Zscore by: Hola LV inlet Zscore (FL) -3.21 LV inlet Zscore (BPD) -2.52 LV inlet Zscore (GA) -2.90 LV inlet Zscore by: Hola RV area Zscore by: Hola LV area Zscore by: Hola TV annulus diast Zscore by: Hola MV annulus diast Zscore by: Hola PV annulus syst Zscore by: Hola AoV annulus syst Z-score by: Hola PA main Zscore (FL) -1.67 PA main Zscore (BPD) -1.45 PA main Zscore (GA) -1.80 PA main Zscore by: Hola Ductus arteriosus Zscore (FL) 2.71 Ductus arteriosus Zscore (BPD) 2.76 Ductus arteriosus Zscore (GA) 2.60 Ductus arteriosus Zscore by: Hola Rt PA branch Zscore (FL) 1.62 Rt PA branch Zscore (BPD) 1.91 Rt PA branch Zscore (GA) 1.52 Rt PA branch Zscore by: Hola Lt PA branch Zscore (FL) 2.13 Lt PA branch Zscore (BPD) 2.41 Lt PA branch Zscore (GA) 2.01 Lt PA branch Zscore by: Hola Ao asc Zscore (FL) -1.59 Ao asc Zscore (BPD) -1.14 Ao asc Zscore (GA) -1.54 Ao asc Zscore by: Hola Ao isthmus Zscore (FL) 0.43 Ao isthmus Zscore (BPD) 0.31 Ao isthmus Zscore (GA) -0.23 Ao isthmus Zscore (EFW) 0.55 Ao isthmus Zscore by: Neal Ao desc Zscore (FL) -2.36 Ao desc Zscore (BPD) -1.71 Ao desc Zscore (GA) -2.49 Ao desc Zscore by: Hola IVC Zscore (FL) 1.18 IVC Zscore (BPD) 1.48 IVC Zscore (GA) 1.11 IVC Zscore by: Hola Intracardial Spectral Doppler TV E-wave -26.18 cm/s TV A-wave -36.92 cm/s TV E / A 0.71 67% Hecher MV E-wave -27.86 cm/s MV A-wave -41.62 cm/s MV E / A 0.67 62% Hecher Postcardial Spectral Doppler Umbilical A PI 1.39 93% Florencia Umbilical A RI 0.77 88% Florencia Umbilical A PS 36.66 cm/s 20% Ebbing Umbilical A ED 8.68 cm/s Umbilical A TAmax 20.60 cm/s 7% Ebbing Umbilical A MD 8.46 cm/s Umbilical A S / D 4.37 90% Florencia Umbilical A HR 143 bpm Speckle Tracking Device/Procedure: Transabdominal ultrasound examination Doppler Arterial Umbilical A PI 1.39 93% Florencia Umbilical A RI 0.77 88% Florencia Umbilical A PS 36.66 cm/s 20% Ebbing Umbilical A ED 8.68 cm/s Umbilical A TAmax 20.60 cm/s 7% Ebbing Umbilical A MD 8.46 cm/s Umbilical A S / D 4.37 90% Florencia Umbilical A HR 143 bpm Maternal Structures Uterus / Cervix Cervix: Visualized Approach: Transabdominal Cervical length 41.0 mm Ovaries / Tubes / Adnexa Rt ovary: Visualized Lt ovary: Visualized Impression Debbie presents for a anatomic survey and echo. On today's exam, SIUP is noted in cephalic presentation with biometry measuring consistent with dates. EFW overall measures at the 14th percentile. AC measures at the 29th percentile. There is a normal amount of amniotic fluid. Placenta is primarily anterior, but there is a posterior/right succenturiate lobe. Cervical length appears adequate. UA Dopplers are normal. Normal appearing anatomy is visualized. No structural abnormalities are identified and no soft markers highly suggestive of aneuploidy are seen. Four-chamber cardiac view and right and left ventricular outflow tracts appear normal. Normal ductal and aortic arch views are seen. The foramen ovale is patent. The cardiac axis is normal. There is no evidence of a arrhythmia. There is no evidence of a ventricular septal defect by color-flow Doppler. No pleural or pericardial effusions are seen. See detailed echocardiogram parameters as above. Recommendation Follow-up scheduled in 5-6wks. Coding ======= Description: 86427-46 Detailed Ultrasound Description: 80217-02 Echo 2D, heart - initial Description: 43711-79 Doppler echo color flow Crusher Machine Operator: Tyra Andrade RDMS Physician: Donna Zhang MD Electronically signed by: Donna Zhang MD at: 11:48 Procedure Note Donna Zhang MD - 01/01/2025 PAT NAME: DEBBIE MELARA MED REC#: [id number] DA: [id number] PAT GEND: F PAT TYPE: O EXAM ANTONINA: [id number] REF PHYS JAUNLUNA MATOS Comparison Studies There are no relevant prior studies to which this study is beingcompared Patient Status Outpatient Indication ======== Incomplete heart views, previous child with CHD (no surgery needed) Maternal Assessment Hhkytk350 cm Height (ft)5 ft Height (in)1 in Qqxrht45 kg Weight (lb)123 lb BMI23.61 kg/m Method ======= Transabdominal ultrasound examination. View: Adequate view ========= Leal . Number of fetuses: 1 Dating ====== Method of dating:based on stated ANNELISE GA by prior [id number] w + 5 d ANNELISE by prior assessment:04/11/2025 Ultrasound examination on:01/01/2025 GA by U/S based upon:AC, BPD, Femur, HC GA by U/S24 w + 5 d ANNELISE by U/S:04/18/2025 Assigned:based on stated ANNELISE, selected on 01/01/2025 Assigned GA25 w + 5 d Assigned ANNELISE:04/11/2025 [id number] d Biometry Standard BPD60.1 mm 24w 4d 8% Hadlock OFD77.3 mm 25w 2d 36% Taylor HC221.2 mm 24w 1d 1% Hadlock Cerebellum tr28.7 mm 25w 2d 36% Hill AC207.7 mm 25w 2d 29% Hadlock Femur44.5 mm 24w 5d 11% Hadlock Udmmrkv61.5 mm 24w 4d 11% Taylor HC / AC1.06 CMA340 g 24w 5d 14% Hadlock EFW (lb)1 lb EFW (oz)10 oz EFW by:Hadlock ([id number]) Extended Tibia39.4 mm 25w 0d 25% Taylor Hlevmh11.0 mm 24w 2d 17% Taylor Foot45.2 mm 10% Chitty Dzuiad89.5 mm 23w 5d 27% Taylor Ulna39.6 mm 25w 6d 37% Taylor Cav. septi pel. tr6.0 mm Vp5.1 mm CM5.8 mm 35% Nicolaides Nasal bone10.2 mm Head / Face / Neck Cephalic index0.78 41% Nicolaides Thorax / Lungs Thoracic webe653.4 mm <1% [place] Thoracic area17.1 cm ThC / AC0.70 Heart / Great Vessels Cardiac axis41 Cardiac circ83.4 mm Cardiac area5.4 cm CC / ThC0.57 CA / ThA0.32 PA main3.93 mm Ductus art.5.20 mm >99% Omalley Rt PA branch3.54 mm 83% Alen Lt PA branch3.69 mm 89% Alen Ao asc3.69 mm Ao isthmus3.0 mm <1% Alen Ao desc2.86 mm McGoon Index mod.2.5 PA main / Ao asc1.07 Ao isthmus / Ductus art.0.58 IVC3.57 mm SVC3.15 mm Extremities / Bony Struc FL / BPD0.74 FL / HC0.20 FL / AC0.21 Other Structures MYY512 bpm General Evaluation Cardiac activity present. FHR 141 bpm. movements present. Presentation cephalic. Placenta Placental site: anterior fundal posterior. Umbilical cord Cord vessels: 3 vessel cord. Insertion site: placentalinsertion: normal. Amniotic fluid Amount of AF: normal. MVP 4.9 cm. FRANCINE 13.9 cm. Q1 4.9 cm,Q2 2.8 cm, Q3 3.4 cm, Q4 2.8 cm. Anatomy Cranium:Appears normal Midline falx:Appears normal Cavum septi pellucidi:Appears normal Cerebellum:Appears normal Cisterna magna:Appears normal Head / Neck Rt lateral ventricle:Appears normal Lt lateral ventricle:Appears normal Rt choroid plexus:Appears normal Lt choroid plexus:Appears normal Vermis:Appears normal Neck:Appears normal Lips:Appear normal Profile:Appears normal Nose:Appears normal Face Nose:Nasal bone present Palate:Appears normal Orbits:Appears normal Lens:Normal 4-chamber view:Appears normal RVOT view:Appears normal LVOT view:Appears normal Heart / Thorax Aortic arch view:Appears normal Ductal arch view:Appears normal SVC:normal IVC:normal 3-vessel view:Appears normal 4-tmtjip-uuvjkhh view:Appears normal Cardiac axis:Normal Rt lung:Appears normal Lt lung:normal Diaphragm:Appears normal Diaphragm:Intact Cord insertion:Appears normal Stomach:Appears normal Bladder:Appears normal Abdomen Rt kidney:normal Lt kidney:normal Liver:normal Liver:homogeneous echotexture Small bowel:normal Large bowel:normal Cervical spine:Appears normal Thoracic spine:Appears normal Lumbar spine:Appears normal Sacral spine:Appears normal Arms:Appears normal Legs:Appears normal Rt upper arm:Appears normal Rt forearm:Appears normal Rt hand:Appears normal Lt upper arm:Appears normal Lt forearm:Appears normal Lt hand:Appears normal Rt upper leg:Appears normal Rt lower leg:Appears normal Rt foot:Appears normal Lt upper leg:Appears normal Lt lower leg:Appears normal Lt foot:Appears normal Gender:male Wants to know gender:yes Echocardiogram 2D Echo (Qualitatively) 4-chamber view:Appears normal LVOT view:Appears normal RVOT view:Appears normal 3-vessel view:Appears normal 4-omlmme-akgvikq view:Appears normal Aortic arch view:Appears normal Ductal arch view:Appears normal SVC:normal IVC:normal Cardiac axis:Normal Venous-atrial connections:normal size and morphology AV connections:normal alignment VA connections:normal size and morphology Pulmonary veins:normal size and morphology Right atrium:normal size and morphology Left atrium:normal size and morphology Atrial septum:normal size and morphology Foramen ovale:normal (in the central third/half, flap valve in leftatrium) Right ventricle:normal size and morphology Left ventricle:normal size and morphology Ventricular septum:ventricular septum intact (apex to crux) Tricuspid valve:normal size and morphology Mitral valve:normal size and morphology Cross-over gr. arteries:anterior great artery (confirmed to be thepulmonary artery by its branching) which crosses the course of theproximal aorta, indicative of normal relationship of the great arteries Main PA:the main pulmonary artery can be seen bifurcating into the ductusarteriosus and the right pulmonary artery B and M-Mode Measurements Thoracic snpn133.4 mm <1% [place] Thoracic area17.1 cm ThC / AC0.70 Cardiac axis41 Cardiac circ83.4 mm Cardiac area5.4 cm CC / ThC0.57 CA / ThA0.32 RA length diast7.91 mm RA width diast6.83 mm RV width diast6.16 mm <1% Omalley RV wall diast2.88 mm 88% Omalley LA length diast7.3 mm LA width syst4.74 mm <1% Omalley LV width diast5.73 mm <1% Omalley LV wall diast3.02 mm 95% Omalley IV Septum diast2.42 mm 42% Omalley RV inlet7.78 mm RVOT diam5.90 mm RVOT area27.0 mm LV inlet12.76 mm LVOT diam5.4 mm LVOT area23.0 mm PA main3.93 mm Ductus art.5.20 mm >99% Omalley Rt PA branch3.54 mm 83% Alen Lt PA branch3.69 mm 89% Alen Ao asc3.69 mm Ao isthmus3.0 mm <1% Alen Ao desc2.86 mm McGoon Index mod.2.5 PA main / Ao asc1.07 Ao isthmus / Ductus art.0.58 IVC3.57 mm SVC3.15 mm RV width diast Zscore (FL)-3.04 RV width diast Zscore (BPD)-2.49 RV width diast Zscore (GA)-3.16 RV width diast Zscore by:Hola LV width diast Zscore (FL)-3.33 LV width diast Zscore (BPD)-2.46 LV width diast Zscore (GA)-3.07 LV width diast Zscore by:Hloa RV inlet Zscore (FL)-5.36 RV inlet Zscore (BPD)-4.55 RV inlet Zscore (GA)-5.02 RV inlet Zscore by:Hola LV inlet Zscore (FL)-3.21 LV inlet Zscore (BPD)-2.52 LV inlet Zscore (GA)-2.90 LV inlet Zscore by:Hola RV area Zscore by:Hola LV area Zscore by:Hola TV annulus diast Zscore by:Hola MV annulus diast Zscore by:Hola PV annulus syst Zscore by:Hola AoV annulus syst Z-score by:Hola PA main Zscore (FL)-1.67 PA main Zscore (BPD)-1.45 PA main Zscore (GA)-1.80 PA main Zscore by:Hola Ductus arteriosus Zscore (FL)2.71 Ductus arteriosus Zscore (BPD)2.76 Ductus arteriosus Zscore (GA)2.60 Ductus arteriosus Zscore by:Hola Rt PA branch Zscore (FL)1.62 Rt PA branch Zscore (BPD)1.91 Rt PA branch Zscore (GA)1.52 Rt PA branch Zscore by:Hola Lt PA branch Zscore (FL)2.13 Lt PA branch Zscore (BPD)2.41 Lt PA branch Zscore (GA)2.01 Lt PA branch Zscore by:Hola Ao asc Zscore (FL)-1.59 Ao asc Zscore (BPD)-1.14 Ao asc Zscore (GA)-1.54 Ao asc Zscore by:Hola Ao isthmus Zscore (FL)0.43 Ao isthmus Zscore (BPD)0.31 Ao isthmus Zscore (GA)-0.23 Ao isthmus Zscore (EFW)0.55 Ao isthmus Zscore by:Neal Ao desc Zscore (FL)-2.36 Ao desc Zscore (BPD)-1.71 Ao desc Zscore (GA)-2.49 Ao desc Zscore by:Hola IVC Zscore (FL)1.18 IVC Zscore (BPD)1.48 IVC Zscore (GA)1.11 IVC Zscore by:Hola Intracardial Spectral Doppler TV E-wave-26.18 cm/s TV A-wave-36.92 cm/s TV E / A0.71 67% Hecher MV E-wave-27.86 cm/s MV A-wave-41.62 cm/s MV E / A0.67 62% Hecher Postcardial Spectral Doppler Umbilical A PI1.39 93% Florencia Umbilical A RI0.77 88% Florencia Umbilical A PS36.66 cm/s 20% Ebbing Umbilical A ED8.68 cm/s Umbilical A TAmax20.60 cm/s 7% Ebbing Umbilical A MD8.46 cm/s Umbilical A S / D4.37 90% Florencia Umbilical A HR143 bpm Speckle Tracking Device/Procedure:Transabdominal ultrasound examination Doppler Arterial Umbilical A PI1.39 93% Florencia Umbilical A RI0.77 88% Florencia Umbilical A PS36.66 cm/s 20% Ebbing Umbilical A ED8.68 cm/s Umbilical A TAmax20.60 cm/s 7% Ebbing Umbilical A MD8.46 cm/s Umbilical A S / D4.37 90% Florencia Umbilical A HR143 bpm Maternal Structures Uterus / Cervix Cervix:Visualized Approach:Transabdominal Cervical .0 mm Ovaries / Tubes / Adnexa Rt ovary:Visualized Lt ovary:Visualized Impression Debbie presents for a anatomic survey and echo. On today's exam, SIUP is noted in cephalic presentation with biometrymeasuring consistent with dates. EFW overall measures at the 14thpercentile. AC measures at the 29th percentile. There is a normal amount of amniotic fluid. Placentais primarily anterior, but there is a posterior/right succenturiate lobe.Cervical length appears adequate. UA Dopplers are normal. Normal appearing anatomy is visualized. No structural abnormalities areidentified and no soft markers highly suggestive of aneuploidy areseen. Four-chamber cardiac view and right and left ventricular outflow tractsappear normal. Normal ductal and aortic arch views are seen. The foramenovale is patent. The cardiac axis is normal. There is no evidence of a arrhythmia. Thereis no evidence of a ventricular septal defect by color-flow Doppler. Nopleural or pericardial effusions are seen. See detailed echocardiogram parameters asabove. Recommendation Follow-up scheduled in 5-6wks. Coding ======= Description:21508-69 Detailed Ultrasound Description:79631-57 Echo 2D, heart - initial Description:40025-09 Doppler echo color flow Crusher Machine Operator: Tyra Andrade RDMS Physician: Dnona Zhang MD Electronically signed by: Donna Zhang MD at: 11:48 us Luna Olivo DO [facility] US ORDERABLES Edited Resul t - Final documented in this encounter Visit Diagnoses Diagnosis Abnormal ultrasound Anomaly of heart of fetus affecting , antepartum, single or unspecified fetus History of delivery, currently with history of pre-term labor , unspecified gestational age documented in this encounter Care Teams [employer] Lieutenant Relationship Specialty Start Date End Date Provider, [place] [address] PCP - General 01/14/22 documented as of this encounter
--- OUTSIDE RECORDS SUMMARY | 2025-01-01 09:30 | XMS_ITS | Encounter Summary ---
Author Organization [facility] Address [address] [place] [id number] Care Team Providers Care Technical Services Rep Name Role Phone Provider, No Known Primary Care Provider Unavail able Reason for Referral * Diagnostic Imaging (Routine) - Closed Specialty Diagnoses / Procedures Referred By Contac t Referred To Contact Radiology Diagnoses Family history of congenital heart defect History of prior with IUGR 25 weeks gestation of Procedures [facility] Donna Zhang MD [address] [facility] [address] [place], [place] [address] Phone: tel: fax: Referral ID Status Reason Start Date Expiration Date Visits Re quested Visits Authorized [id number] Closed 01/01/2025 04/02/2026 1 1 Reason for Visit * Reason Comments incomplete heart views Encounter Details Date Type Department Care Team (Late st Contact Info) Description 01/01/2025 10:30 AM EDT Office Visit [facility] [address] [facility] [address] [place] [phone] Donna Zhang MD [address] [place] [address] Family history of congenital heart defect (Primary Dx); History of prior with IUGR ; 25 weeks gestation of Social History Tobacco Use Types Packs/Day Years [...] more drinks on one occasion? Never 04/13/2022 [place] Depression Scale Answer Date Recorded [place] Depression Scale Total 1 04/14/2022 The thought [...] on file documented as of this encounter Last Filed Vital Signs Vital Sign Reading Time Taken Comments Blood Pressure 122/69 01/01/2025 10:48 AM EDT Pulse - - Temperature - - Respiratory Rate - - Oxygen Saturation - - Inhaled Oxygen Concentration - - Weight 56.9 kg (125 lb 6.4 oz) 01/01/2025 10:48 AM EDT Height 154.9 cm (5' 1 ) 01/01/2025 10:35 AM EDT Body Mass Index 23.69 01/01/2025 10:35 AM EDT documented in this encounter Progress Notes * Flor Reynaga RN - 01/01/2025 10:30 AM EDT NIPT low risk. Pt denies major complaints. Sees OB 01/17. * Playforth, Donna S, MD - 01/01/2025 10:30 AM EDT Patient seen in Maternal Medicine clinic today. Please see full note in under imaging tab of patient chart in [facility] (Viewpoint report). Donna Zhang MD documented in this encounter Plan of Treatment Upcoming Encounters Date Type Department Care Team (Late st Contact Info) Description 03/15/2025 3:00 PM EST Office Visit [facility] [address] [facility] [address] [place] [address] 03/15/2025 3:00 PM EST Appointment [facility] US PER DIAG CTR [address] [place] [address] documented as of this encounter Results * [facility] (02/15/2025 2:19 PM EDT) Anatomical Region Laterality Modality Ultrasound 02/15/2025 1:56 PM EDT Narrative 02/15/2025 2:23 PM EDT PAT NAME: DEBBIE MELARA [facility] REC#: [id number] DA: [id number] PAT GEND: F PAT TYPE: O EXAM ANTONINA: [id number] REF PHYS MEETA MORGAN Comparison Studies The findings of this study are compared to the prior ultrasound study dated 01/01/25 Patient Status Outpatient Indication ======== IUGR. VSD. Maternal Assessment Height 154 cm Height (ft) 5 ft Height (in) 1 in Weight 59 kg Weight (lb) 129 lb BMI 24.67 kg/m Method ======= Transabdominal ultrasound examination ========= Leal . Number of fetuses: 1 Dating ====== Method of dating: based on stated ANNELISE GA by prior assessment 32 w + 1 d ANNELISE by prior assessment: 04/11/2025 Ultrasound examination on: 02/15/2025 GA by U/S based upon: AC, BPD, Femur, HC GA by U/S 30 w + 5 d ANNELISE by U/S: 04/21/2025 Previous dating: based on stated ANNELISE, selected on 01/01/2025 Agreed ANNELISE of previous datin04/11/2025 Assigned: based on stated ANNELISE, selected on 02/15/2025 Assigned GA 32 w + 1 d Assigned ANNELISE: 04/11/2025 length 280 d Biometry Standard BPD 74.8 mm 30w 0d 2% Hadlock OFD 100.0 mm 32w 2d 55% Taylor HC 281.9 mm 30w 6d 2% Hadlock AC 268.1 mm 30w 6d 16% Hadlock Femur 59.6 mm 31w 0d 13% Hadlock HC / AC 1.05 EFW 1,657 g 30w 4d 11% Hadlock EFW (lb) 3 lb EFW (oz) 10 oz EFW by: Hadlock ([id number]-FL) Extended Cav. septi pel. tr 4.5 mm Assistant Professor 4.4 mm Head / Face / Neck Cephalic index 0.75 7% Nicolaides Extremities / Bony Struc FL / BPD 0.80 FL / HC 0.21 FL / AC 0.22 Other Structures FHR 143 bpm General Evaluation Cardiac activity present. FHR 143 bpm. movements present. Presentation cephalic. Placenta Placental site: anterior. Umbilical cord Cord vessels: 3 vessel cord. Amniotic fluid Amount of AF: normal. MVP 4.0 cm. FRANCINE 11.3 cm. Q1 3.5 cm, Q2 2.0 cm, Q3 1.8 cm, Q4 4.0 cm. Anatomy Cranium: Normal Cavum septi pellucidi: Normal Cerebellum: Normal Cisterna magna: Normal Head / Neck Rt lateral ventricle: Normal Lt lateral ventricle: Normal Lips: Normal Profile: Normal Nose: Normal 4-chamber view: Appears normal Cord insertion: Normal Stomach: Appears normal Kidneys: Appears normal Bladder: Appears normal Gender: male Wants to know gender: yes Doppler Arterial Umbilical A PI 1.03 73% Florencia Umbilical A RI 0.65 69% Florencia Umbilical A PS 36.06 cm/s 5% Ebbing Umbilical A ED 13.41 cm/s Umbilical A TAmax 22.97 cm/s 5% Ebbing Umbilical A MD 12.98 cm/s Umbilical A S / D 2.80 58% Florencia Umbilical A HR 140 bpm Biophysical Profile 2: breathing movements 2: Gross body movements 2: tone 2: Amniotic fluid volume 12/01 Biophysical profile score Consultation / Office Visit Office note to follow Impression ========= Size consistent with dates but only slightly greater than 10% for dates. No anomalies were identified. Amniotic fluid volume is normal. Umbilical artery S/D ratio is normal. Patient counseled re movement. Recommendation Recommend increased rest and nutrition. We recommend repeat evaluation for growth and Doppler exam in 4 weeks. Follow up appointment scheduled here in 4 weeks. Coding ====== Description: 96517-31 Follow Up Ultrasound Description: 40432-33 Doppler Umbilical Artery Description: 04821-09 BPP without NST Laborer Poultry Hatchery: Angela Falcon RDMS Physician: Albert Mcconnell MD, FACOG Electronically signed by: Albert Mcconnell MD, FACOG at: 14:23 Procedure Note Dominic Mcconnell MD - 02/15/2025 PAT NAME: DEBBIE MELARA MED REC#: [id number] DA: 1995 PAT GEND: F PAT TYPE: O EXAM ANTONINA: [id number] REF PHYS MEETA MORGAN Comparison Studies The findings of this study are compared to the prior ultrasound studydated 01/01/25 Patient Status Outpatient Indication ======== IUGR. VSD. Maternal Assessment Xyzsaq577 cm Height (ft)5 ft Height (in)1 in Aunbdd27 kg Weight (lb)129 lb BMI24.67 kg/m Method ======= Transabdominal ultrasound examination ========= Leal . Number of fetuses: 1 Dating ====== Method of dating:based on stated ANNELISE GA by prior [id number] w + 1 d ANNELISE by prior assessment:04/11/2025 Ultrasound examination on:02/15/2025 GA by U/S based upon:AC, BPD, Femur, HC GA by U/S30 w + 5 d ANNELISE by U/S:04/21/2025 Previous dating:based on stated ANNELISE, selected on 01/01/2025 Agreed ANNELISE of previous datin04/11/2025 Assigned:based on stated ANNELISE, selected on 02/15/2025 Assigned GA32 w + 1 d Assigned ANNELISE:04/11/2025 [id number] d Biometry Standard BPD74.8 mm 30w 0d 2% Hadlock UUX340.0 mm 32w 2d 55% Taylor HC281.9 mm 30w 6d 2% Hadlock AC268.1 mm 30w 6d 16% Hadlock Femur59.6 mm 31w 0d 13% Hadlock HC / AC1.05 EFW1,657 g 30w 4d 11% Hadlock EFW (lb)3 lb EFW (oz)10 oz EFW by:Hadlock ([id number]-FL) Extended Cav. septi pel. tr4.5 mm Vp4.4 mm Head / Face / Neck Cephalic index0.75 7% Nicolaides Extremities / Bony Struc FL / BPD0.80 FL / HC0.21 FL / AC0.22 Other Structures RVP730 bpm General Evaluation Cardiac activity present. FHR 143 bpm. movements present. Presentation cephalic. Placenta Placental site: anterior. Umbilical cord Cord vessels: 3 vessel cord. Amniotic fluid Amount of AF: normal. MVP 4.0 cm. FRANCINE 11.3 cm. Q1 3.5 cm,Q2 2.0 cm, Q3 1.8 cm, Q4 4.0 cm. Anatomy Cranium:Normal Cavum septi pellucidi:Normal Cerebellum:Normal Cisterna magna:Normal Head / Neck Rt lateral ventricle:Normal Lt lateral ventricle:Normal Lips:Normal Profile:Normal Nose:Normal 4-chamber view:Appears normal Cord insertion:Normal Stomach:Appears normal Kidneys:Appears normal Bladder:Appears normal Gender:male Wants to know gender:yes Doppler Arterial Umbilical A PI1.03 73% Florencia Umbilical A RI0.65 69% Florencia Umbilical A PS36.06 cm/s 5% Ebbing Umbilical A ED13.41 cm/s Umbilical A TAmax22.97 cm/s 5% Ebbing Umbilical A MD12.98 cm/s Umbilical A S / D2.80 58% Florencia Umbilical A HR140 bpm Biophysical Profile 2: breathing movements 2: Gross body movements 2: tone 2: Amniotic fluid volume 8/8 Biophysical profile score Consultation / Office Visit Office note to follow Impression ========= Size consistent with dates but only slightly greater than 10% for dates. No anomalies were identified. Amniotic fluid volume is normal. Umbilical artery S/D ratio is normal. Patient counseled re movement. Recommendation Recommend increased rest and nutrition. We recommend repeat evaluation for growth and Doppler exam in 4weeks. Follow up appointment scheduled here in 4 weeks. Coding ====== Description:33268-69 Follow Up Ultrasound Description:13327-07 Doppler Umbilical Artery Description:61997-22 BPP without NST Laborer Poultry Hatchery: Angela Falcon RDNM Physician: Albert Mcconnell MD, FACOG Electronically signed by: Albert Mcconnell MD, FACOG at: 14:23 us Donna Zhang MD IMG ORDERABLES Final Res ult documented in this encounter Visit Diagnoses Diagnosis Family history of congenital heart defect- Primary History of prior with IUGR 25 weeks gestation of Family history of congenital heart defect History of prior with IUGR 25 weeks gestation of documented in this encounter Care Teams Technical Services Rep Relationship Specialty Start Date End Date Provider, [place] [address] PCP - General 01/14/22 documented as of this encounter
--- OUTSIDE RECORDS SUMMARY | 2025-02-15 12:40 | XMS_ITS | Encounter Summary ---
Author Organization [facility] Address [address] [place] [address] Care Team Providers Care Real Estate Loan Processor Name Role Phone Provider, No Known Primary Care Provider Unavail able Reason for Referral * Diagnostic Imaging (Routine) - Closed Specialty Diagnoses / Procedures Referred By Briana grey Referred To Contact Radiology Diagnoses Family history of congenital heart defect History of prior with IUGR 25 weeks gestation of Procedures [facility] Diagnostic [place] Donna Zhang MD [address] [place] [address] Phone: tel: fax: Referral ID Status Reason Start Date Expiration Date Visits Re quested Visits Authorized [id number] Closed 01/01/2025 04/02/2026 1 1 Reason for Visit * Diagnostic Imaging (Routine) - Closed Specialty Diagnoses / Procedures Referred By Briana grey Referred To Contact Radiology Diagnoses Family history of congenital heart defect History of prior with IUGR 25 weeks gestation of Procedures [facility] Donna Zhang MD [address] [place] [address] Phone: tel: fax: Referral ID Status Reason Start Date Expiration Date Visits Re quested Visits Authorized [id number] Closed 01/01/2025 04/02/2026 1 1 Encounter Details Date Type Department Care Team (Late st Contact Info) Description 02/15/2025 1:40 PM EDT - 02/15/2025 11:59 PM EDT Hospital Encounter [facility] US PER DIAG CTR [address] [place] [address] Donna Zhang MD [address] [place] [address] Family history of congenital heart defect; History [...] more drinks on one occasion? Never 04/13/2022 [place] Depression Scale Answer Date Recorded [place] Depression Scale Total 1 04/14/2022 The thought [...] Description 03/15/2025 3:00 PM EST Office Visit [facility] [address] [facility] [address] [place] [address] 03/15/2025 3:00 PM EST Appointment [facility] PER DIAG CTR [address] [place] [address] documented as of this encounter Procedures Procedure Name Priority Date/Time Associated Diagnosis Comments [facility] Routine 02/15/2025 2:19 PM EDT Family history of congenital heart defect History of prior with IUGR 25 weeks gestation of documented in this encounter Results * [facility] (02/15/2025 2:19 PM EDT) Anatomical Region Laterality Modality Ultrasound 02/15/2025 1:56 PM EDT Narrative 02/15/2025 2:23 PM EDT PAT NAME: DEBBIE MELARA [facility] REC#: [id number] DA: [id number] PAT GEND: F PAT TYPE: O EXAM ANTONINA: [id number] REF PHYS HUSAM MORGANFER Comparison Studies The findings of this study [...] EFW (oz) 10 oz EFW by: Hadlock ([id number]) Extended Cav. septi pel. tr 4.5 mm Inspector Metal Can 4.4 mm Head / Face / Neck [...] here in 4 weeks. Coding ====== Description: 35834-15 Follow Up Ultrasound Description: 24015-25 Doppler Umbilical Artery Description: 07106-42 BPP without NST Microbiology Teacher: Angela Falcon [facility] Physician: Albert Mcconnell MD, FACOG Electronically signed by: Albert Mcconnell MD, FACOG at: 14:23 Procedure Note Dominic Mcconnell MD - 02/15/2025 PAT NAME: DEBBIE MELARA [facility] REC#: [id number] DA: [id number] PAT GEND: F PAT TYPE: O EXAM ANTONINA: [id number] REF PHYS MEETA MOGRAN Comparison Studies The findings of this study are compared to the prior ultrasound studydated 01/01/25 Patient Status Outpatient Indication ======== IUGR. VSD. Maternal Assessment Kvlauj224 cm Height (ft)5 ft Height (in)1 in Bkjkiw89 kg Weight (lb)129 lb BMI24.67 kg/m Method ======= Transabdominal ultrasound examination ========= Leal . Number of fetuses: 1 Dating ====== Method of dating:based on stated ANNELISE GA by prior mwyaftqkyq63 w + 1 d ANNELISE by prior [...] Standard BPD74.8 mm 30w 0d 2% Hadlock FGQ187.0 mm 32w 2d 55% Taylor HC281.9 mm 30w 6d 2% Hadlock AC268.1 mm 30w 6d 16% Hadlock Femur59.6 mm 31w 0d 13% Hadlock HC / AC1.05 EFW1,657 g 30w 4d 11% Hadlock EFW (lb)3 lb EFW (oz)10 oz EFW by:Hadlock (GHZ-PS-MJ-FL) Extended Cav. septi pel. tr4.5 mm Vp4.4 mm Head / Face / Neck Cephalic index0.75 7% Nicolaides Extremities / Bony Struc FL / BPD0.80 FL / HC0.21 FL / AC0.22 Other Structures MWB356 bpm General Evaluation Cardiac activity present. FHR [...] scheduled here in 4 weeks. Coding ====== Description:32914-03 Follow Up Ultrasound Description:29957-45 Doppler Umbilical Artery Description:86170-13 BPP without NST Microbiology Teacher: Angela Falcon RDMS Physician: Albert Mcconnell MD, FACOG Electronically signed by: Albert Mcconnell MD, FACOG at: 14:23 us Donna Zhang MD [facility] ORDERABLES Final Res ult documented in this encounter Visit Diagnoses Diagnosis Family history of congenital heart defect History of prior with IUGR 25 weeks gestation of documented in this encounter Care Teams Real Estate Loan Processor Relationship Specialty Start Date End Date Provider, [place] [address] PCP - General 01/14/22 documented as of this encounter
--- OUTSIDE RECORDS SUMMARY | 2025-02-15 13:45 | XMS_ITS | Encounter Summary ---
Author Organization [facility] Address [address] [place] [id number] Care Team Providers Care Vice President Business Development Name Role Phone Provider, No Known Primary Care Provider Unavail able Reason for Referral * Diagnostic Imaging (Routine) - Authorized Specialty Diagnoses / Procedures Referred By Contac t Referred To Contact Radiology Diagnoses History of prior with IUGR Family history of congenital heart defect 32 weeks gestation of Procedures US [facility] Dominic Mcconnell MD [address] [facility] [address] [place] [address] Phone: tel: fax: [facility] PER DIAG [facility] [address] [place] [address] Phone: tel: Referral ID Status Reason Start Date Expiration Date V isits Requested Visits Authorized [id number] Authorized 02/15/2025 05/17/2026 1 1 Reason for Visit * Reason Comments prev c/w CHD Encounter Details Date Type Department Care Team (Late st Contact Info) Description 02/15/2025 2:45 PM EDT Office Visit [facility] MAT[facility]NAL MEDICINE [address] [facility] [address] [place] [phone] Dominic Mcconnell MD [address] [facility] [address] [place] [address] History of prior with IUGR (Primary Dx); [...] more drinks on one occasion? Never 04/13/2022 [place] Depression Scale Answer Date Recorded [place] Depression Scale Total 1 04/14/2022 The thought [...] ifshe notices any decreased movement. Orders: - [facility]; Future 2. Family history of congenital heart defect - [facility]; Future 3. 32 weeks gestation of - [facility]; Future Follow Up Return in [...] or CVS. Dominic Mcconnell MD Maternal Medicine, [facility] [place] 02/15/2025 * Dominic Mcconnell MD - 02/15/2025 [...] Description 03/15/2025 3:00 PM EST Office [facility] [facility] [address] [place] [address] 03/15/2025 3:00 PM EST [facility]ointment [facility] [address] [place] [address] Scheduled Orders Name Type Priority Associated Diagnoses Orde r Schedule [facility] Imaging Routine History of prior with IUGR Family history of congenital heart defect 32 weeks gestation of Expected: 03/15/2025, Expires: 02/15/2026 documented as of this encounter Visit Diagnoses Diagnosis History of prior with IUGR - Primary Family history of congenital heart defect 32 weeks gestation of documented in this encounter Care Teams Vice President Business Development Relationship Specialty Start Date End Date Provider, [place] [address] PCP - General 01/14/22 documented as of this encounter
--- OUTSIDE RECORDS SUMMARY | 2025-02-26 14:23 | XMS_ITS | Encounter Summary ---
Author Organization [facility] Address [address] [place] [address] Care Team Providers Care Director Software Development Name Role Phone Provider, No Known [...] more drinks on one occasion? Never 04/13/2022 [place] Depression Scale Answer Date Recorded [place] Depression Scale Total 1 04/14/2022 The thought [...] Description 03/15/2025 3:00 PM EST Office Visit [facility] MATERNAL MEDICINE [address] [place] [address] 03/15/2025 3:00 PM EST Appointment [facility] US PER DIAG CTR [address] [place] [address] documented as of this encounter Visit Diagnoses Not on filedocumented in this encounter Care Teams Director Software Development Relationship Specialty Start Date End Date Provider, [place] [address] PCP - General 01/14/22 documented as of this encounter
--- OUTSIDE RECORDS SUMMARY | 2025-02-26 14:23 | XMS_ITS | Encounter Summary ---
Author Organization [facility] Address [address] [place] [address] Care Team Providers Care Dictating Machine Transcriber Name Role Phone Provider, No Known Primary [...] more drinks on one occasion? Never 04/13/2022 [place] Depression Scale Answer Date Recorded [place] Depression Scale Total 1 04/14/2022 The thought [...] MATERNAL MEDICINE [address] [place] [address] 03/15/2025 3:00 PM EST Appointment [facility] US PER DIAG CTR [address] [place] [address] documented as of this encounter Visit Diagnoses Not on filedocumented in this encounter Care Teams Dictating Machine Transcriber Relationship Specialty Start Date End Date Provider, [place] [address] PCP - General 01/14/22 documented as of this encounter
--- OUTSIDE RECORDS SUMMARY | 2025-02-26 14:23 | XMS_ITS | Clinical Summary ---
Author Organization [facility] Address [address] [place] [address] Care Team Providers Care Dehairing Machine Tender Name Role Phone Provider, No [...] Description 02/15/2025 2:45 PM EDT Office Visit [facility]INE [address] [phone] Dominic Mcconnell MD History of prior with IUGR (Primary Dx); Family history of congenital heart defect; 32 weeks gestation of 02/15/2025 1:40 PM EDT - 02/15/2025 11:59 PM EDT Hospital Encounter [facility] US PER DIAG CTR [address] [place] [phone] Donna Zhang MD Family history of congenital heart defect; History of prior with IUGR ; 25 weeks gestation of Discharge Disposition: Home or Self Care 02/15/2025 Travel 01/01/2025 10:30 AM EDT Office Visit [facility] [address] [phone] Donna Zhang MD Family history of congenital heart defect (Primary Dx); History of prior with IUGR ; 25 weeks gestation of 01/01/2025 10:13 AM EDT - 01/01/2025 11:59 PM EDT Hospital Encounter [facility] US PER DIAG CTR [address] [place] [address] Luna Olivo DO Abnormal ultrasound; [...] drinks on one occasion? Never 04/13/2022 [place] Depression Scale Answer Date Recorded [place] Depression Scale Total 1 04/14/2022 The thought [...] Description 03/15/2025 3:00 PM EST Office Visit [facility] [address] [facility] [address] [place] [address] 03/15/2025 3:00 PM EST Appointment [facility] US PER DIAG CTR [address] [place] [address] Health Maintenance Due Date Last [...] Procedure Name Priority Date/Time Associated Diagnosis Comments [facility] Routine 02/15/2025 2:19 PM EDT Family history of congenital heart defect History of prior with IUGR 25 weeks gestation of [facility] Routine 01/01/2025 11:26 AM EDT Abnormal ultrasound Anomaly of heart of fetus affecting , antepartum, single or unspecified fetus History of delivery, currently , unspecified gestational age from Last 3 Months Results * [facility] (02/15/2025 2:19 PM EDT) Only the most recent of2 resultswithin the time period is included. Anatomical Region Laterality Modality Ultrasound 02/15/2025 1:56 PM EDT Narrative 02/15/2025 2:23 PM EDT PAT NAME: DEBBIE MELARA [facility] REC#: [id number] DA: [id number] PAT GEND: F PAT TYPE: O EXAM ANTONINA: [id number] REF PHYS LUNA OLIVO Comparison Studies The [...] EFW (oz) 10 oz EFW by: Hadlock (XYR-CO-NM-FL) Extended Cav. septi pel. tr 4.5 mm Usability Engineer 4.4 mm Head / Face / Neck [...] here in 4 weeks. Coding ====== Description: 16578-92 Follow Up Ultrasound Description: 35716-54 Doppler Umbilical Artery Description: 21132-84 BPP without NST Bioinformatics Assistant: Angela Falcon RDMS Physician: Albert Mcconnell MD, FACOG Electronically signed by: Albert Mcconnell MD, FACOG at: 14:23 Procedure Note Dominic Mcconnell MD - 02/15/2025 PAT NAME: DEBBIE MELARA [facility] REC#: [id number] DA: [id number] PAT GEND: F PAT TYPE: O EXAM ANTONINA: [id number] REF PHYS LUNA OLIVO Comparison Studies The findings of this study are compared to the prior ultrasound studydated 01/01/25 Patient Status Outpatient Indication ======== IUGR. VSD. Maternal Assessment Yegnyg443 cm Height (ft)5 ft Height (in)1 in Qysscl36 kg Weight (lb)129 lb BMI24.67 kg/m Method ======= Transabdominal ultrasound examination ========= Leal . Number of fetuses: 1 Dating ====== Method of dating:based on stated ANNELISE GA by prior [id number] w + 1 d ANNELISE by prior assessment:04/11/2025 Ultrasound examination on:02/15/2025 GA by U/S based upon:AC, BPD, Femur, HC GA by U/S30 w + 5 d ANNELISE by U/S:04/21/2025 Previous dating:based on stated ANNELISE, selected on 01/01/2025 Agreed ANNELISE of previous datin04/11/2025 Assigned:based on stated ANNELISE, selected on 02/15/2025 Assigned GA32 w + 1 d Assigned ANNELISE:04/11/2025 [id number] d Biometry Standard BPD74.8 mm 30w 0d 2% Hadlock KHU640.0 mm 32w 2d 55% Taylor HC281.9 mm 30w 6d 2% Hadlock AC268.1 mm 30w 6d 16% Hadlock Femur59.6 mm 31w 0d 13% Hadlock HC / AC1.05 EFW1,657 g 30w 4d 11% Hadlock EFW (lb)3 lb EFW (oz)10 oz EFW by:Hadlock (CGA-JR-ST-FL) Extended Cav. septi pel. tr4.5 mm Vp4.4 mm Head / Face / Neck Cephalic index0.75 7% Nicolaides Extremities / Bony Struc FL / BPD0.80 FL / HC0.21 FL / AC0.22 Other Structures [id number] bpm General Evaluation Cardiac activity present. FHR [...] scheduled here in 4 weeks. Coding ====== Description:55168-55 Follow Up Ultrasound Description:00815-00 Doppler Umbilical Artery Description:24956-36 BPP without NST Bioinformatics Assistant: Angela Falcon RDMS Physician: Albert Mcconnell MD, FACOG Electronically signed by: Albert Mcconnell MD, FACOG at: 14:23 us Donna Zhang MD IMG US ORDERABLES Final Res ult from Last 3 Months Insurance [facility] MEDICAID Advance Directives * CPR (Attempt to [...] or is breathing): Full Support Care Teams Dehairing Machine Tender Relationship Specialty Start Date End Date Provider, [place] [address] PCP - General 01/14/22
[2025-02-26 15:34] LABS: Glucose,Fasting 97 mg/dl (74-100)
[2025-02-26 15:45] LABS: Iron 95 ug/dL (37-170)
[2025-02-26 16:06] LABS: Glucose 1 Hour 158 mg/dL (74-100)
[2025-02-26 16:22] LABS: Ferritin 78.8 ng/ml (6.24-137)
[2025-02-26 18:57] LABS: Glucose 2 Hour 124 mg/dL (74-100)
[2025-02-26 19:33] LABS: Glucose 3 Hour 104 mg/dL (74-100)
== END 2025-02-26 23:59 | disposition home or self-care (01) ==
LOC: LAB 14:21
PROVIDERS: PCP Nurse Practitioner Family; Visit Provider Obstetrics & Gynecology
DX: O09.899 Supervision of other high risk pregnancies, unspecified trimester (principal); O99.019 Anemia complicating pregnancy, unspecified trimester; D64.9 Anemia, unspecified; G25.81 Restless legs syndrome; Z3A.00 Weeks of gestation of pregnancy not specified
CPT/HCPCS: 36415; 82728; 82951; 83540

== ENCOUNTER 2025-03-13 12:26 | Outpatient (CLI) | payer MEDICAID, SELFPAY ==
--- NOTE | 2025-03-13 13:00 | US_ITS ---
PROCEDURE: US OB BIOPHYSICAL PROFILE CLINICAL INDICATION: BPP, S/D Ratio and Growth COMPARISON: US US OB /MATERNAL DETAIL from 11/30/2024 US US OB FOLLOW UP from 12/14/2024 US US OB FOLLOW UP from 01/19/2025 FINDINGS: Transabdominal sonographic images of the uterus were obtained. From her established due date she is 35weeks 6days. The following parameters are obtained: Viable Fetus in the cephalic presentation with an anterior/lateral placenta grade 2. Cervix measures 2.94 cm in length. Average ultrasound age is 34weeks Estimated weight 2,466g Measurements: heart Rate = 138bpm BPD = 32weeks 3days, <2 percentile HC = 34weeks 2days, 2 percentile AC = 35weeks 6days, 58 percentile FL = 33weeks 2days, <2 percentile HC/AC is 0.96 FL/BPD is 0.8 FL/AC is 0.2 19 percentile Amniotic fluid index: 13.63cm, MVP 4.95 cm Qualitative AFV:2 Breathing movements: 2 Gross Body Movements: 2 Tone: 2 Biophysical profile score: 8 Doppler evaluation of the umbilical artery: SD ratio: 2.41-2.61 Resistive index: 0.59 No obvious anomalies evident.Kidneys, stomach, bladder, four-chamber heart, three-vessel cord appear normal. IMPRESSION: 1. Viable fetus in the cephalic presentation with an anterolateral placenta grade 2. 2. The fluid is within normal limits with an amniotic fluid index 13.63 cm, MVP 4.95 cm. 3. Biophysical profile is 8/8 with good breathing movement and movement seen. 4. SD ratio is normal 2.41-2.61. 5. There has been good interval growth with the fetus continue to be 19th percentile. The abdominal circumference is normal but the the BPD and femur length are less than the 2nd percentile. The abdominal circumference is normal. 6. Limited anatomical scan appears normal. Dictated by: Viet Mcdonald MD 03/13/2025 16:52 Viet Mcdonald MD in OV 03/13/2025 16:52
== END 2025-03-13 23:59 | disposition home or self-care (01) ==
LOC: RAD 12:26
PROVIDERS: PCP Nurse Practitioner Family; Visit Provider Obstetrics & Gynecology
DX: O99.013 Anemia complicating pregnancy, third trimester (principal); O43.193 Other malformation of placenta, third trimester; O28.3 Abnormal ultrasonic finding on antenatal screening of mother; O26.893 Other specified pregnancy related conditions, third trimester; O99.513 Diseases of the respiratory system complicating pregnancy, third trimester; O09.893 Supervision of other high risk pregnancies, third trimester; D64.9 Anemia, unspecified; J45.909 Unspecified asthma, uncomplicated; R10.9 Unspecified abdominal pain; Z3A.36 36 weeks gestation of pregnancy
CPT/HCPCS: 76816; 76819; 76820; 86403

== ENCOUNTER 2025-03-16 14:02 | Outpatient (CLI) | payer MEDICAID, SELFPAY ==
--- OUTSIDE RECORDS SUMMARY | 2025-02-15 12:40 | XMS_ITS | Encounter Summary ---
Author Organization [facility] Address [address] [place] [address] Care Team Providers Care Hat Stock Laminating Machine Operator Name Role Phone Provider, No Known Primary Care Provider Unavail able Reason for Referral * Diagnostic Imaging (Routine) - Closed Specialty Diagnoses / Procedures Referred By Briana grey Referred To Contact Radiology Diagnoses Family history of congenital heart defect History of prior with IUGR 25 weeks gestation of Procedures [facility] Diagnostic [place] Donna Zhang MD [address] [place] [address] Phone: tel: fax: Referral ID Status Reason Start Date Expiration Date Visits Re quested Visits Authorized [id number] Closed 01/01/2025 04/02/2026 1 1 Reason for Visit * Diagnostic Imaging (Routine) - Closed Specialty Diagnoses / Procedures Referred By Briana grey Referred To Contact Radiology Diagnoses Family history of congenital heart defect History of prior with IUGR 25 weeks gestation of Procedures [facility] Donna Zhang MD [address] [place] [address] Phone: tel: fax: Referral ID Status Reason Start Date Expiration Date Visits Re quested Visits Authorized [id number] Closed 01/01/2025 04/02/2026 1 1 Encounter Details Date Type Department Care Team (Late st Contact Info) Description 02/15/2025 1:40 PM EDT - 02/15/2025 11:59 PM EDT [facility] [address] [place] [address] Donna Zhang MD [address] [place] [address] Family history of congenital heart defect; History [...] more drinks on one occasion? Never 04/13/2022 [place] Depression Scale Answer Date Recorded [place] Depression Scale Total 1 04/14/2022 The thought [...] Priority Date/Time Associated Diagnosis Comments [facility] Routine 02/15/2025 2:19 PM EDT Family history of congenital heart defect History of prior with IUGR 25 weeks gestation of documented in this encounter Results * [facility] (02/15/2025 2:19 PM EDT) Anatomical Region Laterality Modality Ultrasound 02/15/2025 1:56 PM EDT Narrative 02/15/2025 2:23 PM EDT PAT NAME: DEBBIE MELARA [facility] REC#: [id number] DA: [id number] PAT GEND: F PAT TYPE: O EXAM ANTONINA: [id number] REF PHYS MEETA MORGAN Comparison Studies The [...] EFW (oz) 10 oz EFW by: Hadlock ([id number]-[id number]-FL) Extended Cav. septi pel. tr 4.5 mm Global Upstream Marketing Manager 4.4 mm Head / Face / Neck [...] here in 4 weeks. Coding ====== Description: 28483-46 Follow Up Ultrasound Description: 73920-48 Doppler Umbilical Artery Description: 41688-21 BPP without NST Bowling Ball Assembler: Angela Falcon RDMS Physician: Albert Mcconnell MD, FACOG Electronically signed by: Albert Mcconnell MD, FACOG at: 14:23 Procedure Note Dominic Mcconnell MD - 02/15/2025 PAT NAME: DEBBIE MELARA [facility] REC#: [id number] DA: [id number] PAT GEND: F PAT TYPE: O EXAM ANTONINA: [id number] REF PHYS MEETA MORGAN Comparison Studies The findings of this study are compared to the prior ultrasound studydated 01/01/25 Patient Status Outpatient Indication ======== IUGR. VSD. Maternal Assessment Btlfpf883 cm Height (ft)5 ft Height (in)1 in Uwpxjj52 kg Weight (lb)129 lb BMI24.67 kg/m Method ======= Transabdominal ultrasound examination ========= Leal . Number of fetuses: 1 Dating ====== Method of dating:based on stated ANNELISE GA by prior abmqbzvbnc67 w + 1 d ANNELISE by prior assessment:04/11/2025 Ultrasound examination on:02/15/2025 GA by U/S based upon:AC, BPD, Femur, HC GA by U/S30 w + 5 d ANNELISE by U/S:04/21/2025 Previous dating:based on stated ANNELISE, selected on 01/01/2025 Agreed ANNELISE of previous datin04/11/2025 Assigned:based on stated ANNELISE, selected on 02/15/2025 Assigned GA32 w + 1 d Assigned ANNELISE:04/11/2025 [id number] d Biometry Standard BPD74.8 mm 30w 0d 2% Hadlock CIR592.0 mm 32w 2d 55% Taylor HC281.9 mm 30w 6d 2% Hadlock AC268.1 mm 30w 6d 16% Hadlock Femur59.6 mm 31w 0d 13% Hadlock HC / AC1.05 EFW1,657 g 30w 4d 11% Hadlock EFW (lb)3 lb EFW (oz)10 oz EFW by:Hadlock ([id number]-GA-FB-FL) Extended Cav. septi pel. tr4.5 mm Vp4.4 mm Head / Face / Neck Cephalic index0.75 7% Nicolaides Extremities / Bony Struc FL / BPD0.80 FL / HC0.21 FL / AC0.22 Other Structures CQS136 bpm General Evaluation Cardiac activity present. FHR [...] scheduled here in 4 weeks. Coding ====== Description:74905-98 Follow Up Ultrasound Description:45801-75 Doppler Umbilical Artery Description:89963-19 BPP without NST Bowling Ball Assembler: Angela Falcon RDMS Physician: Albert Mcconnell MD, FACOG Electronically signed by: Albert Mcconnell MD, FACOG at: 14:23 us Donna Zhang MD IMG US ORDERABLES Final Res ult documented in this encounter Visit Diagnoses Diagnosis Family history of congenital heart defect History of prior with IUGR 25 weeks gestation of documented in this encounter Care Teams Hat Stock Laminating Machine Operator Relationship Specialty Start Date End Date Provider, [place] [address] PCP - General 01/14/22 documented as of this encounter
--- OUTSIDE RECORDS SUMMARY | 2025-02-15 13:45 | XMS_ITS | Encounter Summary ---
Author Organization [facility] Address [address] [place] [phone] Care Team Providers Care Ethanol Quality Leader Name Role Phone Provider, No Known Primary Care Provider Unavail able Reason for Referral * Diagnostic Imaging (Routine) - Authorized Specialty Diagnoses / Procedures Referred By Contac t Referred To Contact Radiology Diagnoses History of prior with IUGR Family history of congenital heart defect 32 weeks gestation of Procedures [facility] Dominic Mcconnell MD [address] [facility] [address] [place] [address] Phone: tel: fax: [facility] US PER DIAG CTR [address] [place] [address] Phone: tel: Referral ID Status Reason Start Date Expiration Date V isits Requested Visits Authorized [id number] Authorized 02/15/2025 05/17/2026 1 1 Reason for Visit * Reason Comments prev c/w CHD Encounter Details Date Type Department Care Team (Late st Contact Info) Description 02/15/2025 2:45 PM EDT Office Visit [facility] MATERNAL MEDICINE [address] [facility] [address] [place] [phone] Dominic Mcconnell MD [address] [facility] [address] [place] [address] History of prior with IUGR (Primary Dx); [...] more drinks on one occasion? Never 04/13/2022 [place] Depression Scale Answer Date Recorded [place] Depression Scale Total 1 04/14/2022 The thought [...] ifshe notices any decreased movement. Orders: - [facility]; Future 2. Family history of congenital heart defect - [facility]; Future 3. 32 weeks gestation of - [facility]; Future Follow Up Return [...] or CVS. Dominic Mcconnell MD Maternal Medicine, [facility] Diagnostic [place] 02/15/2025 * Dominic Mcconnell MD - 02/15/2025 [...] Priority Associated Diagnoses Orde r Schedule [facility] Imaging Routine History of prior with IUGR Family history of congenital heart defect 32 weeks gestation of Expected: 03/15/2025, Expires: 02/15/2026 documented as of this encounter Visit Diagnoses Diagnosis History of prior with IUGR - Primary Family history of congenital heart defect 32 weeks gestation of documented in this encounter Care Teams Ethanol Quality Leader Relationship Specialty Start Date End Date Provider, [place] [address] PCP - General 01/14/22 documented as of this encounter
--- OUTSIDE RECORDS SUMMARY | 2025-03-16 14:05 | XMS_ITS | Clinical Summary ---
Author Organization [facility] Address [address] [place] [address] Care Team Providers Care Environmental Health Aide Name Role Phone Provider, No Known Primary [...] Description 02/15/2025 2:45 PM EDT Office Visit [facility] MATERNAL MEDICINE [address] [phone] Dominic Mcconnell MD History of prior with IUGR (Primary Dx); Family history of congenital heart defect; 32 weeks gestation of 02/15/2025 1:40 PM EDT - 02/15/2025 11:59 PM EDT Hospital Encounter [facility] US PER DIAG CTR [address] [place] [phone] Donna Zhang MD Family history of congenital heart defect; History of prior with IUGR ; 25 weeks gestation of Discharge Disposition: Home or Self Care 02/15/2025 Travel 01/01/2025 10:30 AM EDT Office Visit [facility] MATERNAL MEDICINE [address] [phone] Donna Zhang MD Family history of congenital heart defect (Primary Dx); History of prior with IUGR ; 25 weeks gestation of 01/01/2025 10:13 AM EDT - 01/01/2025 11:59 PM EDT Hospital Encounter [facility] US PER DIAG CTR [address] [place] [address] Meeta Olivo DO Abnormal ultrasound; Anomaly of heart [...] more drinks on one occasion? Never 04/13/2022 [place] Depression Scale Answer Date Recorded [place] Depression Scale Total 1 04/14/2022 The thought [...] 01/01/2025 10:35 AM EDT Plan of Treatment Health Maintenance Due Date [...] Procedure Name Priority Date/Time Associated Diagnosis Comments [facility] Routine 02/15/2025 2:19 PM EDT Family history of congenital heart defect History of prior with IUGR 25 weeks gestation of [facility] Routine 01/01/2025 11:26 AM EDT Abnormal ultrasound Anomaly of heart of fetus affecting , antepartum, single or unspecified fetus History of delivery, currently , unspecified gestational age from Last 3 Months Results * [facility] (02/15/2025 2:19 PM EDT) Only the most recent of2 resultswithin the time period is included. Anatomical Region Laterality Modality Ultrasound 02/15/2025 1:56 PM EDT Narrative 02/15/2025 2:23 PM EDT PAT NAME: DEBBIE MELARA [facility] REC#: [id number] DA: [id number] PAT GEND: F PAT TYPE: O EXAM ANTONINA: [id number] REF PHYS MEETA OLIVO Comparison Studies The findings of this [...] EFW (oz) 10 oz EFW by: Hadlock (RWD-UK-KN-FL) Extended Cav. septi pel. tr 4.5 mm Comber Fixer 4.4 mm Head / Face / Neck [...] here in 4 weeks. Coding ====== Description: 75145-04 Follow Up Ultrasound Description: 57517-01 Doppler Umbilical Artery Description: 86945-33 BPP without NST Sod Stripper: Angela Falcon RDMS Physician: Albert Mcconnell MD, FACOG Electronically signed by: Albert Mcconnell MD, FACOG at: 14:23 Procedure Note Dominic Mcconnell MD - 02/15/2025 PAT NAME: DEBBIE MELARA [facility] REC#: [id number] DA: 1995 PAT GEND: F PAT TYPE: O EXAM ANTONINA: [id number] REF PHYS MEETA OLIVO Comparison Studies The findings of this study are compared to the prior ultrasound studydated 01/01/25 Patient Status Outpatient Indication ======== IUGR. VSD. Maternal Assessment Udxrwg842 cm Height (ft)5 ft Height (in)1 in Nvwmpk67 kg Weight (lb)129 lb BMI24.67 kg/m Method ======= Transabdominal ultrasound examination ========= Leal . Number of fetuses: 1 Dating ====== Method of dating:based on stated ANNELISE GA by prior [id number] w + 1 d ANNELISE by prior [...] Standard BPD74.8 mm 30w 0d 2% Hadlock AQN013.0 mm 32w 2d 55% Taylor HC281.9 mm 30w 6d 2% Hadlock AC268.1 mm 30w 6d 16% Hadlock Femur59.6 mm 31w 0d 13% Hadlock HC / AC1.05 EFW1,657 g 30w 4d 11% Hadlock EFW (lb)3 lb EFW (oz)10 oz EFW by:Hadlock (NKO-BJ-OS-FL) Extended Cav. septi pel. tr4.5 mm Vp4.4 mm Head / Face / Neck Cephalic index0.75 7% Nicolaides Extremities / Bony Struc FL / BPD0.80 FL / HC0.21 FL / AC0.22 Other Structures PTH627 bpm General Evaluation Cardiac activity present. FHR [...] scheduled here in 4 weeks. Coding ====== Description:51722-53 Follow Up Ultrasound Description:64346-25 Doppler Umbilical Artery Description:10490-54 BPP without NST Sod Stripper: Angela Falcon RDMS Physician: Albert Mcconnell MD, FACOG Electronically signed by: Albert Mcconnell MD, FACOG at: 14:23 us Donna Zhang MD IMG US ORDERABLES Final Res ult from Last 3 Months Insurance [employer] MEDICA[employer] [...] or is breathing): Full Support Care Teams Environmental Health Aide Relationship Specialty Start Date End Date Provider, [place] [address] PCP - General 01/14/22
--- OUTSIDE RECORDS SUMMARY | 2025-03-16 14:05 | XMS_ITS | Encounter Summary ---
Author Organization [facility] Address [address] [place] [address] Care Team Providers Care Pet Caretaker Name Role Phone Provider, No Known Primary [...] more drinks on one occasion? Never 04/13/2022 [place] Depression Scale Answer Date Recorded [place] Depression Scale Total 1 04/14/2022 The thought [...] on file documented as of this encounter Visit Diagnoses Not on filedocumented in this encounter Care Teams Pet Caretaker Relationship Specialty Start Date End Date Provider, [place] [address] PCP - General 01/14/22 documented as of this encounter
[2025-03-16 14:10] VITALS: BP 131/67; PULSE 90; RESP 18; TEMP 36.8; O2SAT 96; BMI 25.1
[2025-03-16 15:10] LABS: Microscopic, Urine URINE MICROSCOPIC (MICROSCOPIC)
[2025-03-16 15:15] LABS: Bilirubin,Urine Negative (Negative); Color,Urine YELLOW (Yellow); Glucose,Urine (UA) Negative (Negative); Ketones,Urine Negative (Negative); Leukocyte Esterase,Urine 3+ (Negative); PH,Urine 7.0 (5.0-8.5); Protein,Urine Negative (Negative); Specific Gravity, Urine 1.015 (1.005-1.030); Urobilinogen,Urine 0.2 EU/dl (0.2)
[2025-03-16 15:27] LABS: Squamous Epithelial Cell,Urine 20-50 #/hpf (0-5); WBC,Urine 50-100 #/hpf (0-3)
[2025-03-16 15:28] LABS: Bacteria,Urine 4+ /lpf; Mucus,Urine 1+ /lpf
--- NOTE | 2025-03-16 15:39 | US_ITS ---
PROCEDURE INFORMATION: Exam: US Biophysical Profile Without Non-Stress Test Exam date and time: 03/16/2025 3:40 PM Age: 30 years old Clinical indication: status abnormalities: ; movements, decreased; Single gestation; Third trimester (>=28 weeks 0 days); ; Additional info: Decreased movement TECHNIQUE: Imaging protocol: US biophysical profile without non-stress testing. Total images: 725 COMPARISON: US OB BIOPHYSICAL PROFILE 03/13/2025 1:04 PM FINDINGS: heart rate: 152 bpm presentation and position: Cephalic presentation. Placenta: Anterior placenta. Amniotic fluid index: FRANCINE is 18.17 cm. BIOPHYSICAL PROFILE: breathing (BPP): 2 /2 gross body movement (BPP): 2 /2 tone (BPP): 2 /2 Amniotic fluid (BPP): 2 /2 Biophysical profile score (BPP): 8 /8 MATERNAL ANATOMY: Cervix: Cervical length measures 2.4 cm. Other findings: Funneling is noted. IMPRESSION: 1. Biophysical profile score 8/8. 2. Funneling is noted.
[2025-03-16 16:05] LABS: Hematocrit 33.7 % (37.0-47.0); Hemoglobin 10.5 g/dL (12.2-16.2); Immature Granulocytes % 0.5 %; Mean Corpuscular HGB Conc 31.2 g/dL (31.8-35.4); Mean Corpuscular Hemoglobin 27.4 pg (27.0-31.2); Mean Corpuscular Volume 88.0 fl (81-99); Nucleated Red Blood Cells % 0 %; Platelet Count 152 K/mm3 (142-424); Red Blood Count 3.83 M/mm3 (4.20-5.40); Red Cell Distribution Width-SD 69.2 fL; White Blood Count 5.6 K/mm3 (4.8-10.8)
[2025-03-16 16:15] LABS: Alanine Aminotransferase 12 U/L (12-78); Albumin Level 3.9 g/dl (3.5-5.0); Albumin/Globulin Ratio 1.3 (1.1-1.8); Alkaline Phosphatase 173 U/L (38-126); Anion Gap 10.9 mEq/L (5-15); Aspartate Amino Transferase 19 U/L (14-36); Bilirubin,Total 0.4 mg/dl (0.2-1.3); Blood Urea Nitrogen 4 mg/dl (7-17); Calcium 8.8 mg/dl (8.4-10.2); Carbon Dioxide 19 mmol/L (22.0-30.0); Chloride 104 mmol/L (98-107); Creatinine Clearance Estimated 154 mL/min (50-200); Creatinine,Serum 0.50 mg/dl (0.52-1.04); Estimated Glomerular Filt Rate 143 ml/min (>60); GFR (African American) 173 ML/MIN (>60); Globulin 2.9 g/dL (1.3-3.2); Glucose 95 mg/dl (74-100); Potassium 3.9 mmoL/L (3.5-5.1); Sodium 130 mmol/L (136-145); Total Protein,Serum 6.8 g/dl (6.3-8.2)
== END 2025-03-16 19:30 | disposition home or self-care (01) ==
LOC: OBOUT 14:03 → OB 14:04
PROVIDERS: PCP Nurse Practitioner Family; Visit Provider Obstetrics & Gynecology
DX: O28.3 Abnormal ultrasonic finding on antenatal screening of mother (principal); O36.8130 Decreased fetal movements, third trimester, not applicable or unspecified; Z3A.36 36 weeks gestation of pregnancy
CPT/HCPCS: 36415; 76819; 80053; 81001; 85025; 87086; 99213

== ENCOUNTER 2025-03-23 14:18 | Outpatient (CLI) | payer MEDICAID, SELFPAY ==
--- OUTSIDE RECORDS SUMMARY | 2025-02-15 12:40 | XMS_ITS | Encounter Summary ---
Author Organization [facility] Address [address] [place] [address] Care Team Providers Care Power Lineman Technician Name Role Phone Provider, No Known Primary Care Provider Unavail able Reason for Referral * Diagnostic Imaging (Routine) - Closed Specialty Diagnoses / Procedures Referred By Briana grey Referred To Contact Radiology Diagnoses Family history of congenital heart defect History of prior with IUGR 25 weeks gestation of Procedures [facility] Donna Zhang MD [address] [place] [address] Phone: tel: fax: Referral ID Status Reason Start Date Expiration Date Visits Re quested Visits Authorized [id number] Closed 01/01/2025 04/02/2026 1 1 Reason for Visit * Diagnostic Imaging (Routine) - Closed Specialty Diagnoses / Procedures Referred By Briana grey Referred To Contact Radiology Diagnoses Family history of congenital heart defect History of prior with IUGR 25 weeks gestation of Procedures [facility] Donna Zhang MD [address] [place] [address] Phone: tel: fax: Referral ID Status Reason Start Date Expiration Date Visits Re quested Visits Authorized [id number] Closed 01/01/2025 04/02/2026 1 1 Encounter Details Date Type Department Care Team (Late st Contact Info) Description 02/15/2025 1:40 PM EDT - 02/15/2025 11:59 PM EDT Hospital Encounter [facility] US PER DIAG CTR [address] [place] [address] Donna Zhang MD [address] [place] [address] Family history of congenital heart defect; History of prior with IUGR ; 25 weeks gestation of Discharge Disposition: Home or Self Care Social [...] more drinks on one occasion? Never 04/13/2022 [place] Depression Scale Answer Date Recorded [place] Depression Scale Total 1 04/14/2022 The thought [...] Times a Day. 12/01/2021 Vit-Fe Fumarate-FA ( 27-1) 27-1 MG tablet tablet Take 1 tablet by mouth Daily. ProAir HFA 108 (90 Base) MCG/ACT inhaler Inhale 1 puff As Needed. 03/09/2022 documented as of this encounter Plan of Treatment Not on file documented as of this encounter Procedures Procedure Name Priority Date/Time Associated Diagnosis Comments [facility] Routine 02/15/2025 2:19 PM EDT Family history of congenital heart defect History of prior with IUGR 25 weeks gestation of documented in this encounter Results * [facility] (02/15/2025 2:19 PM EDT) Anatomical Region Laterality Modality Ultrasound 02/15/2025 1:56 PM EDT Narrative 02/15/2025 2:23 PM EDT PAT NAME: DEBBIE MELARA [facility] REC#: [id number] DA: [id number] PAT GEND: F PAT TYPE: O EXAM ANTONINA: [id number] REF PHYS MEETA MORGAN Comparison Studies The [...] EFW (oz) 10 oz EFW by: Hadlock (FJT-SX-UI-FL) Extended Cav. septi pel. tr 4.5 mm Die Maker Electronic 4.4 mm Head / Face / Neck [...] here in 4 weeks. Coding ====== Description: 99755-80 Follow Up Ultrasound Description: 29423-66 Doppler Umbilical Artery Description: 04914-47 BPP without NST Softball Player: Angela Falcon RDMS Physician: Albert Mcconnell MD, FACOG Electronically signed by: Albert Mcconnell MD, FACOG at: 14:23 Procedure Note Dominic Mcconnell MD - 02/15/2025 PAT NAME: DEBBIE MELARA [facility] REC#: [id number] DA: [id number] PAT GEND: F PAT TYPE: O EXAM ANTONINA: [id number] REF PHYS MEETA MORGAN Comparison Studies The findings of this study are compared to the prior ultrasound studydated 01/01/25 Patient Status Outpatient Indication ======== IUGR. VSD. Maternal Assessment Ppdzli646 cm Height (ft)5 ft Height (in)1 in Ubofgj66 kg Weight (lb)129 lb BMI24.67 kg/m Method ======= Transabdominal ultrasound examination ========= Leal . Number of fetuses: 1 Dating ====== Method of dating:based on stated ANNELISE GA by prior stehvnvhni47 w + 1 d ANNELISE by prior assessment:04/11/2025 Ultrasound examination on:02/15/2025 GA by U/S based upon:AC, BPD, Femur, HC GA by U/S30 w + 5 d ANNELISE by U/S:04/21/2025 Previous dating:based on stated ANNELISE, selected on 01/01/2025 Agreed ANNELISE of previous datin04/11/2025 Assigned:based on stated ANNELISE, selected on 02/15/2025 Assigned GA32 w + 1 d Assigned ANNELISE:04/11/2025 d Biometry Standard BPD74.8 mm 30w 0d 2% Hadlock RWX537.0 mm 32w 2d 55% Taylor HC281.9 mm 30w 6d 2% Hadlock AC268.1 mm 30w 6d 16% Hadlock Femur59.6 mm 31w 0d 13% Hadlock HC / AC1.05 EFW1,657 g 30w 4d 11% Hadlock EFW (lb)3 lb EFW (oz)10 oz EFW by:Hadlock (KZQ-YX-CG-FL) Extended Cav. septi pel. tr4.5 mm Vp4.4 mm Head / Face / Neck Cephalic index0.75 7% Nicolaides Extremities / Bony Struc FL / BPD0.80 FL / HC0.21 FL / AC0.22 Other Structures EME500 bpm General Evaluation Cardiac activity present. FHR [...] movements 2: tone 2: Amniotic fluid volume 8 Biophysical profile score Consultation / Office Visit [...] scheduled here in 4 weeks. Coding ====== Description:64738-89 Follow Up Ultrasound Description:95470-60 Doppler Umbilical Artery Description:70311-92 BPP without NST Softball Player: Angela Falcon RDMS Physician: Albert Mcconnell MD, FACOG Electronically signed by: Albert Mcconnell MD, FACOG at: 14:23 us Donna Zhang MD IMG US ORDERABLES Final Res ult documented in this encounter Visit Diagnoses Diagnosis Family history of congenital heart defect History of prior with IUGR 25 weeks gestation of documented in this encounter Care Teams Power Lineman Technician Relationship Specialty Start Date End Date Provider, [place] [address] PCP - General 01/14/22 documented as of this encounter
--- OUTSIDE RECORDS SUMMARY | 2025-02-15 13:45 | XMS_ITS | Encounter Summary ---
Author Organization [facility] Address [address] [place] [id number] Care Team Providers Care Mold Engraver Name Role Phone Provider, No Known Primary Care Provider Unavail able Reason for Referral * Diagnostic Imaging (Routine) - Authorized Specialty Diagnoses / Procedures Referred By Contac t Referred To Contact Radiology Diagnoses History of prior with IUGR Family history of congenital heart defect 32 weeks gestation of Procedures [facility] Dominic Mcconnell MD [facility] [facility] [address] [place] [address] Phone: tel: fax: [facility] PER DIAG [facility] [address] [place] [address] Phone: tel: Referral ID Status Reason Start Date Expiration Date V isits Requested Visits Authorized [id number] Authorized 02/15/2025 05/17/2026 1 1 Reason for Visit * Reason Comments prev c/w CHD Encounter Details Date Type Department Care Team (Late st Contact Info) Description 02/15/2025 2:45 PM EDT Office Visit [facility] MATERNAL MEDICINE [address] [facility] [address] [place] [phone] Dominic Mcconnell MD [address] [facility] [address] [place] [address] History of prior with IUGR (Primary Dx); [...] more drinks on one occasion? Never 04/13/2022 [place] Depression Scale Answer Date Recorded [place] Depression Scale Total 1 04/14/2022 The thought [...] ifshe notices any decreased movement. Orders: - [facility]; Future 2. Family history of congenital heart defect - [facility]; Future 3. 32 weeks gestation of - [facility]; Future Follow Up Return in [...] or CVS. Dominic Mcconnell MD Maternal Medicine, [facility] [place] 02/15/2025 * Dominic Mcconnell MD - 02/15/2025 [...] Type Priority Associated Diagnoses Orde r Schedule [facility] Imaging Routine History of prior with IUGR Family history of congenital heart defect 32 weeks gestation of Expected: 03/15/2025, Expires: 02/15/2026 documented as of this encounter Visit Diagnoses Diagnosis History of prior with IUGR - Primary Family history of congenital heart defect 32 weeks gestation of documented in this encounter Care Teams Mold Engraver Relationship Specialty Start Date End Date Provider, [place] [address] PCP - General 01/14/22 documented as of this encounter
--- NOTE | 2025-03-23 14:15 | US_ITS ---
PROCEDURE: US OB BIOPHYSICAL PROFILE CLINICAL INDICATION: BPP/SD ratio COMPARISON: US US OB /MATERNAL DETAIL from 11/30/2024 US US OB FOLLOW UP from 12/14/2024 US US OB FOLLOW UP from 01/19/2025 US US OB BIOPHYSICAL PROFILE from 03/13/2025 US US OB BIOPHYSICAL PROFILE from 03/16/2025 FINDINGS: Transabdominal sonographic images of the uterus were obtained. From her established due date she is 37weeks 2days. The following parameters are obtained: Viable Fetus in the cephalic presentation with an a anterolateral placenta grade 2. Cervix measures 2.61 cm in length Measurements: heart Rate = 147bpm Amniotic fluid index: 10.88cm, MVP 6.61 cm Qualitative AFV:2 Breathing movements: 0 Gross Body Movements: 2 Tone: 2 Biophysical profile score: 6 Doppler evaluation of the umbilical artery: SD ratio: 2.19-2.6 Resistive index: 0.54 No obvious anomalies evident.Kidneys, stomach, bladder, four-chamber heart, three-vessel cord appear normal. IMPRESSION: 1. Viable fetus in the cephalic presentation with an anterolateral placenta grade 2. 2. The fluid is within normal limits with an amniotic fluid index 10.8 cm, MVP 6.61 cm. 3. Biophysical profile is 6/8 with no breathing movement seen today. There is however good movement. Patient was sent to Labor and delivery for a nonstress test. 4. SD ratio is normal 2.19-2.6. 5. Limited anatomical scan appears normal. Dictated by: Viet Mcdonald MD 03/23/2025 20:33 Viet Mcdonald MD in OV 03/23/2025 20:33
--- OUTSIDE RECORDS SUMMARY | 2025-03-23 14:20 | XMS_ITS | Encounter Summary ---
Author Organization [facility] Address [address] [place] [address] Care Team Providers Care Manager Plant Name Role Phone Provider, No Known Primary [...] more drinks on one occasion? Never 04/13/2022 [place] Depression Scale Answer Date Recorded [place] Depression Scale Total 1 04/14/2022 The thought [...] on filedocumented in this encounter Care Teams Manager Plant Relationship Specialty Start Date End Date Provider, [place] [address] PCP - General 01/14/22 documented as of this encounter
--- OUTSIDE RECORDS SUMMARY | 2025-03-23 14:20 | XMS_ITS | Clinical Summary ---
Author Organization [facility] Address [address] [place] [address] Care Team Providers Care Banquet Coordinator Name Role Phone Provider, No Known [...] [facility] MATERNAL MEDICINE [address] [phone] Dominic Mcconnell MD History of prior with IUGR (Primary Dx); Family history of congenital heart defect; 32 weeks gestation of 02/15/2025 1:40 PM EDT - 02/15/2025 11:59 PM EDT Hospital Encounter [facility] US PER DIAG CTR [address] [place] [phone] Donna Zhang MD Family history of congenital heart defect; History of prior with IUGR ; 25 weeks gestation of Discharge Disposition: Home or Self Care 02/15/2025 Travel 01/01/2025 10:30 AM EDT Office Visit [facility] MATERNAL MEDICINE [address] [phone] Donna Zhang MD Family history of congenital heart defect (Primary Dx); History of prior with IUGR ; 25 weeks gestation of 01/01/2025 10:13 AM EDT - 01/01/2025 11:59 PM EDT Hospital Encounter [facility] US PER DIAG CTR [address] [address] Meeta Olivo DO Abnormal ultrasound; [...] more drinks on one occasion? Never 04/13/2022 [place] Depression Scale Answer Date Recorded [place] Depression Scale Total 1 04/14/2022 The thought [...] Procedure Name Priority Date/Time Associated Diagnosis Comments [facility] Routine 02/15/2025 2:19 PM EDT Family history of congenital heart defect History of prior with IUGR 25 weeks gestation of [facility] Routine 01/01/2025 11:26 AM EDT Abnormal ultrasound Anomaly of heart of fetus affecting , antepartum, single or unspecified fetus History of delivery, currently , unspecified gestational age from Last 3 Months Results * [facility] (02/15/2025 2:19 PM EDT) Only the most recent of2 resultswithin the time period is included. Anatomical Region Laterality Modality Ultrasound 02/15/2025 1:56 PM EDT Narrative 02/15/2025 2:23 PM EDT PAT NAME: DEBBIE MELARA [facility] REC#: [id number] DA: [id number] PAT GEND: F PAT TYPE: O EXAM ANTONINA: [id number] REF PHYS MEETA OLIVO Comparison Studies The [...] EFW (oz) 10 oz EFW by: Hadlock (YVH-IN-XE-FL) Extended Cav. septi pel. tr 4.5 mm Horse Breeder 4.4 mm Head / Face / Neck [...] here in 4 weeks. Coding ====== Description: 75517-93 Follow Up Ultrasound Description: 63154-86 Doppler Umbilical Artery Description: 61638-55 BPP without NST Vest Busheler: Angela Falcon RDMS Physician: Albert Mcconnell MD, FACOG Electronically signed by: Albert Mcconnell MD, FACOG at: 14:23 Procedure Note Dominic Mcconnell MD - 02/15/2025 PAT NAME: DEBBIE MELARA [facility] REC#: [id number] DA: 1995 PAT GEND: F PAT TYPE: O EXAM ANTONINA: [id number] REF PHYS MEETA OLIVO Comparison Studies The findings of this study are compared to the prior ultrasound studydated 01/01/25 Patient Status Outpatient Indication ======== IUGR. VSD. Maternal Assessment Fzxmeu852 cm Height (ft)5 ft Height (in)1 in Fhjpkc24 kg Weight (lb)129 lb BMI24.67 kg/m Method ======= Transabdominal ultrasound examination ========= Leal . Number of fetuses: 1 Dating ====== Method of dating:based on stated ANNELISE GA by prior [id number] w + 1 d ANNELISE by prior [...] Standard BPD74.8 mm 30w 0d 2% Hadlock OVN957.0 mm 32w 2d 55% Taylor HC281.9 mm 30w 6d 2% Hadlock AC268.1 mm 30w 6d 16% Hadlock Femur59.6 mm 31w 0d 13% Hadlock HC / AC1.05 EFW1,657 g 30w 4d 11% Hadlock EFW (lb)3 lb EFW (oz)10 oz EFW by:Hadlock (ONR-SX-DG-FL) Extended Cav. septi pel. tr4.5 mm Vp4.4 mm Head / Face / Neck Cephalic index0.75 7% Nicolaides Extremities / Bony Struc FL / BPD0.80 FL / HC0.21 FL / AC0.22 Other Structures PWQ156 bpm General Evaluation Cardiac activity present. FHR [...] scheduled here in 4 weeks. Coding ====== Description:70947-84 Follow Up Ultrasound Description:54550-80 Doppler Umbilical Artery Description:31965-65 BPP without NST Vest Busheler: Angela Falcon RDMS Physician: Albert Mcconnell MD, [...] or is breathing): Full Support Care Teams Banquet Coordinator Relationship Specialty Start Date End Date Provider, [place] [address] PCP - General 01/14/22
[2025-03-23 15:20] VITALS: BMI 24.7
[2025-03-23 15:35] VITALS: BP 125/82; PULSE 136; RESP 19; TEMP 37.2; O2SAT 97; BMI 24.7
[2025-03-23 15:57] VITALS: PULSE 93
[2025-03-23] MEDS: LACTATED RINGERS 1000ML 1,000 ML 999 ML IV (16:10)
--- NOTE | 2025-03-23 16:20 | ECG_ITS ---
APPROVED REPORT Exam: Resting ECG HR:119 bpm ECG Measurements Heart Rate 119 AXES NH 127 P 56 QRSd 71 QRS 52 QT 305 T 35 QTc 376 Conclusion SINUS TACHYCARDIA ABNORMAL RHYTHM ECG UNCONFIRMED REPORT Electronically signed by : Wilner Godinez MD 03/24/2025 08:36:05
[2025-03-23 16:42] VITALS: PULSE 89
[2025-03-23 17:11] LABS: Hematocrit 33.5 % (37.0-47.0); Hemoglobin 10.5 g/dL (12.2-16.2); Immature Granulocytes % 0.5 %; Mean Corpuscular HGB Conc 31.3 g/dL (31.8-35.4); Mean Corpuscular Hemoglobin 28.2 pg (27.0-31.2); Mean Corpuscular Volume 90.1 fl (81-99); Nucleated Red Blood Cells % 0 %; Platelet Count 127 K/mm3 (142-424); Red Blood Count 3.72 M/mm3 (4.20-5.40); Red Cell Distribution Width-SD 67.0 fL; White Blood Count 6.3 K/mm3 (4.8-10.8)
[2025-03-23 17:19] LABS: Alanine Aminotransferase 10 U/L (12-78); Albumin Level 3.7 g/dl (3.5-5.0); Albumin/Globulin Ratio 1.2 (1.1-1.8); Alkaline Phosphatase 184 U/L (38-126); Anion Gap 9.1 mEq/L (5-15); Aspartate Amino Transferase 20 U/L (14-36); Bilirubin,Total 0.5 mg/dl (0.2-1.3); Blood Urea Nitrogen 7 mg/dl (7-17); Calcium 8.8 mg/dl (8.4-10.2); Carbon Dioxide 21 mmol/L (22.0-30.0); Chloride 103 mmol/L (98-107); Creatinine Clearance Estimated 152 mL/min (50-200); Creatinine,Serum 0.50 mg/dl (0.52-1.04); Estimated Glomerular Filt Rate 143 ml/min (>60); GFR (African American) 173 ML/MIN (>60); Globulin 3.0 g/dL (1.3-3.2); Glucose 87 mg/dl (74-100); Potassium 4.1 mmoL/L (3.5-5.1); Sodium 129 mmol/L (136-145); Total Protein,Serum 6.7 g/dl (6.3-8.2)
== END 2025-03-23 17:30 | disposition home or self-care (01) ==
LOC: RAD 14:19 → OBOUT 15:19 → OB 15:20
PROVIDERS: PCP Nurse Practitioner Family; Visit Provider Nurse Practitioner Obstetrics & Gynecology
DX: O36.5930 Maternal care for other known or suspected poor fetal growth, third trimester, not applicable or unspecified (principal); O99.013 Anemia complicating pregnancy, third trimester; O43.193 Other malformation of placenta, third trimester; O99.891 Other specified diseases and conditions complicating pregnancy; D64.9 Anemia, unspecified; R00.0 Tachycardia, unspecified; R94.31 Abnormal electrocardiogram [ECG] [EKG]; Z3A.37 37 weeks gestation of pregnancy
CPT/HCPCS: 36415; 76819; 76820; 80053; 85025; 93005; 99213; J7120

== ENCOUNTER 2025-03-24 14:52 | Outpatient (CLI) | payer MEDICAID, SELFPAY ==
--- OUTSIDE RECORDS SUMMARY | 2025-02-15 12:40 | XMS_ITS | Encounter Summary ---
Author Organization [facility] Address [address] [place] [address] Care Team Providers Care Meeting Planner Name Role Phone Provider, No Known Primary Care Provider Unavail able Reason for Referral * Diagnostic Imaging (Routine) - Closed Specialty Diagnoses / Procedures Referred By Briana grey Referred To Contact Radiology Diagnoses Family history of congenital heart defect History of prior with IUGR 25 weeks gestation of Procedures [facility] Diagnostic [place] Donna Zhang MD [address] [place] [address] Phone: tel: fax: Referral ID Status Reason Start Date Expiration Date Visits Re quested Visits Authorized [id number] Closed 01/01/2025 04/02/2026 1 1 Reason for Visit * Diagnostic Imaging (Routine) - Closed Specialty Diagnoses / Procedures Referred By Briana grey Referred To Contact Radiology Diagnoses Family history of congenital heart defect History of prior with IUGR 25 weeks gestation of Procedures [facility] Donna Zhang MD [address] [place] [address] Phone: tel: fax: Referral ID Status Reason Start Date Expiration Date Visits Re quested Visits Authorized [id number] Closed 01/01/2025 04/02/2026 1 1 Encounter Details Date Type Department Care Team (Late st Contact Info) Description 02/15/2025 1:40 PM EDT - 02/15/2025 11:59 PM EDT Hospital Encounter [facility] US PER DIAG CTR [address] [place] [address] Donna Zhang MD [address] [place] [address] Family history of congenital heart defect; History [...] more drinks on one occasion? Never 04/13/2022 [place] Depression Scale Answer Date Recorded [place] Depression Scale Total 1 04/14/2022 The thought [...] Procedure Name Priority Date/Time Associated Diagnosis Comments [facility] Routine 02/15/2025 2:19 PM EDT Family history of congenital heart defect History of prior with IUGR 25 weeks gestation of documented in this encounter Results * [facility] (02/15/2025 2:19 PM EDT) Anatomical Region Laterality Modality Ultrasound 02/15/2025 1:56 PM EDT Narrative 02/15/2025 2:23 PM EDT PAT NAME: DEBBIE MELARA [facility] REC#: [id number] DA: [id number] PAT GEND: F PAT TYPE: O EXAM ANTONINA: [id number] REF PHYS MEETA MORGAN Comparison Studies The [...] EFW (oz) 10 oz EFW by: Hadlock (VMR-SD-HO-FL) Extended Cav. septi pel. tr 4.5 mm Shaker Plate Operator 4.4 mm Head / Face / [...] here in 4 weeks. Coding ====== Description: 63829-01 Follow Up Ultrasound Description: 83687-93 Doppler Umbilical Artery Description: 45360-42 BPP without NST Medical Esthetician: Angela Falcon RDMS Physician: Albert Mcconnell MD, FACOG Electronically signed by: Albert Mcconnell MD, FACOG at: 14:23 Procedure Note Dominic Mcconnell MD - 02/15/2025 PAT NAME: DEBBIE MELARA [facility] REC#: [id number] DA: [id number] PAT GEND: F PAT TYPE: O EXAM ANTONINA: [id number] REF PHYS MEETA MORGAN Comparison Studies The findings of this study are compared to the prior ultrasound studydated 01/01/25 Patient Status Outpatient Indication ======== IUGR. VSD. Maternal Assessment Mpriub624 cm Height (ft)5 ft Height (in)1 in Fkugup39 kg Weight (lb)129 lb BMI24.67 kg/m Method ======= Transabdominal ultrasound examination ========= Leal . Number of fetuses: 1 Dating ====== Method of dating:based on stated ANNELISE GA by prior [id number] w + 1 d ANNELISE by prior assessment:04/11/2025 Ultrasound examination on:02/15/2025 GA by U/S based upon:AC, BPD, Femur, HC GA by U/S30 w + 5 d ANNELISE by U/S:04/21/2025 Previous dating:based on stated ANNELISE, selected on 01/01/2025 Agreed ANNELISE of previous datin04/11/2025 Assigned:based on stated ANNELISE, selected on 02/15/2025 Assigned GA32 w + 1 d Assigned ANNELISE:04/11/2025 [id number] d Biometry Standard BPD74.8 mm 30w 0d 2% Hadlock YVJ734.0 mm 32w 2d 55% Taylor HC281.9 mm 30w 6d 2% Hadlock AC268.1 mm 30w 6d 16% Hadlock Femur59.6 mm 31w 0d 13% Hadlock HC / AC1.05 EFW1,657 g 30w 4d 11% Hadlock EFW (lb)3 lb EFW (oz)10 oz EFW by:Hadlock (TWI-ZT-CF-FL) Extended Cav. septi pel. tr4.5 mm Vp4.4 mm Head / Face / Neck Cephalic index0.75 7% Nicolaides Extremities / Bony Struc FL / BPD0.80 FL / HC0.21 FL / AC0.22 Other Structures JEP368 bpm General Evaluation Cardiac activity present. FHR [...] scheduled here in 4 weeks. Coding ====== Description:26130-56 Follow Up Ultrasound Description:27078-12 Doppler Umbilical Artery Description:65878-39 BPP without NST Medical Esthetician: Angela Falcon RDMS Physician: Albert Mcconnell MD, FACOG Electronically signed by: Albert Mcconnell MD, FACOG at: 14:23 us Donna Zhang MD IMG US ORDERABLES Final Res ult documented in this encounter Visit Diagnoses Diagnosis Family history of congenital heart defect History of prior with IUGR 25 weeks gestation of documented in this encounter Care Teams Meeting Planner Relationship Specialty Start Date End Date Provider, [place] [address] PCP - General 01/14/22 documented as of this encounter
--- OUTSIDE RECORDS SUMMARY | 2025-02-15 13:45 | XMS_ITS | Encounter Summary ---
Author Organization [facility] Address [address] [place] [id number] Care Team Providers Care Fast Food Shift Lead Name Role Phone Provider, No Known Primary Care Provider Unavail able Reason for Referral * Diagnostic Imaging (Routine) - Authorized Specialty Diagnoses / Procedures Referred By Contac t Referred To Contact Radiology Diagnoses History of prior with IUGR Family history of congenital heart defect 32 weeks gestation of Procedures [facility] Dominic Mcconnell MD [address] [facility] [address] [place] [address] Phone: tel: fax: [facility] US PER DIAG CTR [address] [place] [address] Phone: tel: Referral ID Status Reason Start Date Expiration Date V isits Requested Visits Authorized [id number] Authorized 02/15/2025 05/17/2026 1 1 Reason for Visit * Reason Comments prev c/w CHD Encounter Details Date Type Department Care Team (Late st Contact Info) Description 02/15/2025 2:45 PM EDT Office Visit [facility] MATERNAL MEDICINE [address] [facility] [address] [place] [phone] Dominic Mcconnell MD [address] [facility] [address] [place] [address] History of prior with IUGR (Primary Dx); Family history of congenital heart defect; 32 weeks gestation of Social History Tobacco Use [...] more drinks on one occasion? Never 04/13/2022 [place] Depression Scale Answer Date Recorded [place] Depression Scale Total 1 04/14/2022 The thought [...] Sign Reading Time Taken Comments Blood Pressure 127/61 02/15/2025 1:49 PM EDT Pulse - - Temperature - - Respiratory Rate - - Oxygen Saturation - - Inhaled Oxygen Concentration - - Weight 58.6 kg (129 lb 3.2 oz) 02/15/2025 1:49 P M EDT Height - - Body Mass Index 24.41 01/01/2025 10:35 AM EDT documented in this encounter Progress Notes * Flor Reynaga RN - 02/15/2025 2:45 PM EDT Pt reports occasional contractions improved with rest. Sees OB 02/23 . NIPT neg. * Dominic Mcconnell MD - 02/15/2025 2:45 PM EDT Images from the original note were not included. Documentation of the ultrasound findings, images, and interpretations will be available in the patient's Viewpoint report which is located in the imaging tab in chart review. Maternal/ Medicine Follow Up Note Name: Debbie Fuentes : 1995 Referring Provider: Luna Olivo DO Chief Complaint prev c/w CHD Subjective History of Present Illness: Debbie Fuentes is a 30 y.o. 32w1d who presents today for Hx IUGR ANNELISE: Estimated Date of Delivery: 04/11/25 ROS: As noted in HPI. Objective Vital Signs BP 127/61 Wt 58.6 kg (129 lb 3.2 oz) Estimated body mass index is 24.41 kg/m?? as calculated from the following: Height as of 01/01/25: 154.9 cm (61 ). Weight as of this encounter: 58.6 kg (129 lb 3.2 oz). Physical Exam Ultrasound Impression: See Viewpoint Assessment and Plan Debbie Fuentes is a 30 y.o. 32w1d who presents today for Hx IUGR Diagnoses and all orders for this visit: 1. History of prior with IUGR (Primary) Assessment & Plan: Patient returns for follow-up for complicated by history of intrauterine growth restriction and a previous . Additionally previous had a child with a VSD. Patient reportsno complications since her last visit and notes good movement. Ultrasound today demonstrates a normally grown fetus albeit with overall growth at approximately the 11th percentile for dates. Abdominal circumference is 18 and 10th and 15th percentile for dates. Amniotic fluid volume and umbilical artery Dopplers are normal. BPP is 8 out of 8. Patient's fetus is still greater than the 10th percentile but is significantly closer than on previous scans. With the patient's history of previous intrauterine growth restriction we have recommend the patient increase her rest off her feet and increase nutrition. The patient reports that she doesnot smoke or vape. We will rescan the patient again in 4 weeks time to assess growth and wellbeing and to determine if there is any need for early delivery. At the current time I do not see anyfindings that would necessitate delivery prior to 39 weeks gestation. Patient was counseled extensively regarding movement will contact her provider immediately ifshe notices any decreased movement. Orders: - [facility]; Future 2. Family history of congenital heart defect - [facility]; Future 3. 32 weeks gestation of - [facility]; Future Follow Up Return in about 4 weeks (around 03/15/2025). I spent 10 minutes caring for the patient on the day of service. This included: obtaining or reviewing a separately obtained medical history, reviewing patient records, performing a medically appropriate exam and/or evaluation, counseling or educating the patient/family/caregiver, ordering medications, labs, and/or procedures and documenting such in the medical record. This does not include time spent on review and interpretation of other tests such as ultrasound or the performance of other procedures such as amniocentesis or CVS. Dominic Mcconnell MD Maternal Medicine, [facility] Diagnostic [place] 02/15/2025 * Dominic Mcconnell MD - 02/15/2025 2:16 PM EDTAssociated Problem(s): History of prior with IUGR Patient returns for follow-up for complicated by history of intrauterine growth restriction and a previous . Additionally previous had a child with a VSD. Patient reportsno complications since her last visit and notes good movement. Ultrasound today demonstrates a normally grown fetus albeit with overall growth at approximately the 11th percentile for dates. Abdominal circumference is 18 and 10th and 15th percentile for dates. Amniotic fluid volume and umbilical artery Dopplers are normal. BPP is 8 out of 8. Patient's fetus is still greater than the 10th percentile but is significantly closer than on previous scans. With the patient's history of previous intrauterine growth restriction we have recommend the patient increase her rest off her feet and increase nutrition. The patient reports that she doesnot smoke or vape. We will rescan the patient again in 4 weeks time to assess growth and wellbeing and to determine if there is any need for early delivery. At the current time I do not see anyfindings that would necessitate delivery prior to 39 weeks gestation. Patient was counseled extensively regarding movement will contact her provider immediately ifshe notices any decreased movement. documented in this encounter Plan of Treatment Scheduled Orders Name Type Priority Associated Diagnoses Orde r Schedule [facility] Imaging Routine History of prior with IUGR Family history of congenital heart defect 32 weeks gestation of Expected: 03/15/2025, Expires: 02/15/2026 documented as of this encounter Visit Diagnoses Diagnosis History of prior with IUGR - Primary Family history of congenital heart defect 32 weeks gestation of documented in this encounter Care Teams Fast Food Shift Lead Relationship Specialty Start Date End Date Provider, [place] [address] PCP - General 01/14/22 documented as of this encounter
--- OUTSIDE RECORDS SUMMARY | 2025-03-24 14:55 | XMS_ITS | Encounter Summary ---
Author Organization [facility] Address [address] [place] [address] Care Team Providers Care Blanking Press Operator Name Role Phone Provider, No Known [...] more drinks on one occasion? Never 04/13/2022 [place] Depression Scale Answer Date Recorded [place] Depression Scale Total 1 04/14/2022 The thought [...] on filedocumented in this encounter Care Teams Blanking Press Operator Relationship Specialty Start Date End Date Provider, [place] [address] PCP - General 01/14/22 documented as of this encounter
--- OUTSIDE RECORDS SUMMARY | 2025-03-24 14:55 | XMS_ITS | Clinical Summary ---
Author Organization [facility] Address [address] [place] [address] Care Team Providers Care Rubber Tubing Backer Name Role Phone Provider, No Known Primary [...] Description 02/15/2025 2:45 PM EDT Office Visit [facility] [address] [phone] Dominic Mcconnell MD History of prior with IUGR (Primary Dx); Family history of congenital heart defect; 32 weeks gestation of 02/15/2025 1:40 PM EDT - 02/15/2025 11:59 PM EDT Hospital Encounter [facility] DIAG [facility] [address] [place] [phone] Donna Zhang MD Family history of congenital heart defect; History of prior with IUGR ; 25 weeks gestation of Discharge Disposition: Home or Self Care 02/15/2025 Travel 01/01/2025 10:30 AM EDT Office Visit [facility] [address] [phone] Donna Zhang MD Family history of congenital heart defect (Primary Dx); History of prior with IUGR ; 25 weeks gestation of 01/01/2025 10:13 AM EDT - 01/01/2025 11:59 PM EDT Hospital Encounter [facility] US PER DIAG [facility] [address] [place] [address] Meeta Olivo DO Abnormal ultrasound; [...] more drinks on one occasion? Never 04/13/2022 [place] Depression Scale Answer Date Recorded [place] Depression Scale Total 1 04/14/2022 The thought [...] Priority Date/Time Associated Diagnosis Comments [facility] Routine 02/15/2025 2:19 PM EDT Family history of congenital heart defect History of prior with IUGR 25 weeks gestation of [facility] Routine 01/01/2025 11:26 AM EDT Abnormal ultrasound Anomaly of heart of fetus affecting , antepartum, single or unspecified fetus History of delivery, currently , unspecified gestational age from Last 3 Months Results * [facility] (02/15/2025 2:19 PM EDT) Only the most recent of2 resultswithin the time period is included. Anatomical Region Laterality Modality Ultrasound 02/15/2025 1:56 PM EDT Narrative 02/15/2025 2:23 PM EDT PAT NAME: DEBBIE MELARA [facility] REC#: [id number] DA: [id number] PAT GEND: F PAT TYPE: O EXAM ANTONINA: [id number] REF PHYS MEETA OLIVO Comparison Studies The [...] EFW (oz) 10 oz EFW by: Hadlock ([id number]-FL) Extended Cav. septi pel. tr 4.5 mm Form Maker Plaster 4.4 mm Head / Face / Neck [...] here in 4 weeks. Coding ====== Description: 59127-85 Follow Up Ultrasound Description: 27568-20 Doppler Umbilical Artery Description: 18945-15 BPP without NST Computer System Specialist: Angela Falcon RDMS Physician: Albert Mcconnell MD, FACOG Electronically signed by: Albert Mcconnell MD, FACOG at: 14:23 Procedure Note Dominic Mcconnell MD - 02/15/2025 PAT NAME: DEBBIE MELARA [facility] REC#: [id number] DA: 1995 PAT GEND: F PAT TYPE: O EXAM ANTONINA: [id number] REF PHYS MEETA OLIVO Comparison Studies The findings of this study are compared to the prior ultrasound studydated 01/01/25 Patient Status Outpatient Indication ======== IUGR. VSD. Maternal Assessment Caoudv857 cm Height (ft)5 ft Height (in)1 in Znnlpd06 kg Weight (lb)129 lb BMI24.67 kg/m Method ======= Transabdominal ultrasound examination ========= Leal . Number of fetuses: 1 Dating ====== Method of dating:based on stated ANNELISE GA by prior [id number] w + 1 d ANNELISE by prior [...] Standard BPD74.8 mm 30w 0d 2% Hadlock LIY590.0 mm 32w 2d 55% Taylor HC281.9 mm 30w 6d 2% Hadlock AC268.1 mm 30w 6d 16% Hadlock Femur59.6 mm 31w 0d 13% Hadlock HC / AC1.05 EFW1,657 g 30w 4d 11% Hadlock EFW (lb)3 lb EFW (oz)10 oz EFW by:Hadlock ([id number]-FL) Extended Cav. septi pel. tr4.5 mm Vp4.4 mm Head / Face / Neck Cephalic index0.75 7% Nicolaides Extremities / Bony Struc FL / BPD0.80 FL / HC0.21 FL / AC0.22 Other Structures [id number] bpm General Evaluation Cardiac activity present. FHR [...] scheduled here in 4 weeks. Coding ====== Description:33182-49 Follow Up Ultrasound Description:42650-19 Doppler Umbilical Artery Description:28606-43 BPP without NST Computer System Specialist: Angela Falcon RDMS Physician: Albert Mcconnell [...] is breathing): Full Support Care Teams Rubber Tubing Backer Relationship Specialty Start Date End Date Provider, [place] [address] PCP - General 01/14/22
[2025-03-24 15:11] VITALS: BP 120/72; PULSE 90; RESP 18; TEMP 36.7; O2SAT 98; BMI 25.1
== END 2025-03-24 15:40 | disposition home or self-care (01) ==
LOC: OBOUT 14:53 → OB 14:54
PROVIDERS: PCP Nurse Practitioner Family; Visit Provider Nurse Practitioner Obstetrics & Gynecology
DX: Z34.83 Encounter for supervision of other normal pregnancy, third trimester (principal); Z3A.37 37 weeks gestation of pregnancy
CPT/HCPCS: 99212

== ENCOUNTER 2025-03-25 15:17 | Outpatient (CLI) | payer MEDICAID, SELFPAY ==
--- OUTSIDE RECORDS SUMMARY | 2025-02-15 12:40 | XMS_ITS | Encounter Summary ---
Author Organization [facility] Address [address] [place] [address] Care Team Providers Care Etiquette Coach Name Role Phone Provider, No Known Primary Care Provider Unavail able Reason for Referral * Diagnostic Imaging (Routine) - Closed Specialty Diagnoses / Procedures Referred By Briana grey Referred To Contact Radiology Diagnoses Family history of congenital heart defect History of prior with IUGR 25 weeks gestation of Procedures [facility] Diagnostic [place] Donna Zhang MD [address] [place] [address] Phone: tel: fax: Referral ID Status Reason Start Date Expiration Date Visits Re quested Visits Authorized [id number] Closed 01/01/2025 04/02/2026 1 1 Reason for Visit * Diagnostic Imaging (Routine) - Closed Specialty Diagnoses / Procedures Referred By Briana grey Referred To Contact Radiology Diagnoses Family history of congenital heart defect History of prior with IUGR 25 weeks gestation of Procedures [facility] Donna Zhang MD [address] [place] [address] Phone: tel: fax: Referral ID Status Reason Start Date Expiration Date Visits Re quested Visits Authorized [id number] Closed 01/01/2025 04/02/2026 1 1 Encounter Details Date Type Department Care Team (Late st Contact Info) Description 02/15/2025 1:40 PM EDT - 02/15/2025 11:59 PM EDT Hospital Encounter [facility] US PER DIAG CTR [address] [place] [address] Donna Zhang MD [address] [place] [address] Family history of congenital heart defect; History [...] more drinks on one occasion? Never 04/13/2022 [place] Depression Scale Answer Date Recorded [place] Depression Scale Total 1 04/14/2022 The thought [...] Procedure Name Priority Date/Time Associated Diagnosis Comments [facility] Routine 02/15/2025 2:19 PM EDT Family history of congenital heart defect History of prior with IUGR 25 weeks gestation of documented in this encounter Results * [facility] (02/15/2025 2:19 PM EDT) Anatomical Region Laterality Modality Ultrasound 02/15/2025 1:56 PM EDT Narrative 02/15/2025 2:23 PM EDT PAT NAME: DEBBIE MELARA [facility] REC#: [id number] DA: [id number] PAT GEND: F PAT TYPE: O EXAM ANTONINA: [id number] REF PHYS MEETA MORGAN Comparison Studies The [...] EFW (oz) 10 oz EFW by: Hadlock ([id number]-EM-UJ-FL) Extended Cav. septi pel. tr 4.5 mm Supervisor [employer] 4.4 mm Head / Face / Neck [...] here in 4 weeks. Coding ====== Description: 15333-21 Follow Up Ultrasound Description: 49430-87 Doppler Umbilical Artery Description: 31161-26 BPP without NST Head Of Global Strategic Partnerships: Angela Falcon RDMS Physician: Albert Mcconnell MD, FACOG Electronically signed by: Albert Mcconnell MD, FACOG at: 14:23 Procedure Note Dominic Mcconnell MD - 02/15/2025 PAT NAME: DEBBIE MELARA [facility] REC#: [id number] DA: [id number] PAT GEND: F PAT TYPE: O EXAM ANTONINA: [id number] REF PHYS MEETA MORGAN Comparison Studies The findings of this study are compared to the prior ultrasound studydated 01/01/25 Patient Status Outpatient Indication ======== IUGR. VSD. Maternal Assessment Izxnjh408 cm Height (ft)5 ft Height (in)1 in Ggzbkr78 kg Weight (lb)129 lb BMI24.67 kg/m Method ======= Transabdominal ultrasound examination ========= Leal . Number of fetuses: 1 Dating ====== Method of dating:based on stated ANNELISE GA by prior iitloojoez48 w + 1 d ANNELISE by prior assessment:04/11/2025 Ultrasound examination on:02/15/2025 GA by U/S based upon:AC, BPD, Femur, HC GA by U/S30 w + 5 d ANNELISE by U/S:04/21/2025 Previous dating:based on stated ANNELISE, selected on 01/01/2025 Agreed ANNELISE of previous datin04/11/2025 Assigned:based on stated ANNELISE, selected on 02/15/2025 Assigned GA32 w + 1 d Assigned ANNELISE:04/11/2025 odzwnq745 d Biometry Standard BPD74.8 mm 30w 0d 2% Hadlock MFG583.0 mm 32w 2d 55% Taylor HC281.9 mm 30w 6d 2% Hadlock AC268.1 mm 30w 6d 16% Hadlock Femur59.6 mm 31w 0d 13% Hadlock HC / AC1.05 EFW1,657 g 30w 4d 11% Hadlock EFW (lb)3 lb EFW (oz)10 oz EFW by:Hadlock (ERC-BZ-QH-FL) Extended Cav. septi pel. tr4.5 mm Vp4.4 mm Head / Face / Neck Cephalic index0.75 7% Nicolaides Extremities / Bony Struc FL / BPD0.80 FL / HC0.21 FL / AC0.22 Other Structures IEF547 bpm General Evaluation Cardiac activity present. FHR [...] scheduled here in 4 weeks. Coding ====== Description:87340-90 Follow Up Ultrasound Description:27627-93 Doppler Umbilical Artery Description:89043-53 BPP without NST Head Of Global Strategic Partnerships: Angela Falcon RDMS Physician: Albert Mcconnell MD, FACOG Electronically signed by: Albert Mcconnell MD, FACOG at: 14:23 us Donna Zhang MD IMG US ORDERABLES Final Res ult documented in this encounter Visit Diagnoses Diagnosis Family history of congenital heart defect History of prior with IUGR 25 weeks gestation of documented in this encounter Care Teams Etiquette Coach Relationship Specialty Start Date End Date Provider, [place] [address] PCP - General 01/14/22 documented as of this encounter
--- OUTSIDE RECORDS SUMMARY | 2025-02-15 13:45 | XMS_ITS | Encounter Summary ---
Author Organization [facility] Address [address] [place] [phone] Care Team Providers Care Chief Innovation Officer Name Role Phone Provider, No Known Primary Care Provider Unavail able Reason for Referral * Diagnostic Imaging (Routine) - Authorized Specialty Diagnoses / Procedures Referred By Contac t Referred To Contact Radiology Diagnoses History of prior with IUGR Family history of congenital heart defect 32 weeks gestation of Procedures [facility] Dominic Mcconnell MD [address] [facility] [address] [place] [address] Phone: tel: fax: [facility] US PER DIAG CTR [address] [place] [address] Phone: tel: Referral ID Status Reason Start Date Expiration Date V isits Requested Visits Authorized [id number] Authorized 02/15/2025 05/17/2026 1 1 Reason for Visit * Reason Comments prev c/w CHD Encounter Details Date Type Department Care Team (Late st Contact Info) Description 02/15/2025 2:45 PM EDT Office Visit [facility] MATERNAL MEDICINE [address] [facility] [address] [place] [phone] Dominic Mcconnell MD [address] [facility] [address] [place] [address] History of prior with IUGR (Primary Dx); [...] more drinks on one occasion? Never 04/13/2022 [place] Depression Scale Answer Date Recorded [place] Depression Scale Total 1 04/14/2022 The thought [...] ifshe notices any decreased movement. Orders: - [facility]; Future 2. Family history of congenital heart defect - [facility]; Future 3. 32 weeks gestation of - [facility]; Future Follow Up Return [...] or CVS. Dominic Mcconnell MD Maternal Medicine, [facility] Diagnostic [place] 02/15/2025 * Dominic Mcconnell MD - 02/15/2025 [...] Type Priority Associated Diagnoses Orde r Schedule [facility] Imaging Routine History of prior with IUGR Family history of congenital heart defect 32 weeks gestation of Expected: 03/15/2025, Expires: 02/15/2026 documented as of this encounter Visit Diagnoses Diagnosis History of prior with IUGR - Primary Family history of congenital heart defect 32 weeks gestation of documented in this encounter Care Teams Chief Innovation Officer Relationship Specialty Start Date End Date Provider, [place] [address] PCP - General 01/14/22 documented as of this encounter
--- OUTSIDE RECORDS SUMMARY | 2025-03-25 15:20 | XMS_ITS | Clinical Summary ---
Author Organization [facility] Address [address] [place] [address] Care Team Providers Care Middle School Counselor Name Role Phone Provider, No Known Primary [...] Description 02/15/2025 2:45 PM EDT Office Visit [facility] [address] [phone] Dominic Mcconnell MD History of prior with IUGR (Primary Dx); Family history of congenital heart defect; 32 weeks gestation of 02/15/2025 1:40 PM EDT - 02/15/2025 11:59 PM EDT Hospital Encounter [facility] US PER DIAG [facility] [address] [place] [phone] Donna Zhang MD Family history of congenital heart defect; History of prior with IUGR ; 25 weeks gestation of Discharge Disposition: Home or Self Care 02/15/2025 Travel 01/01/2025 10:30 AM EDT Office Visit [facility] [address] [phone] Donna Zhang MD Family history of congenital heart defect (Primary Dx); History of prior with IUGR ; 25 weeks gestation of 01/01/2025 10:13 AM EDT - 01/01/2025 11:59 PM EDT Hospital Encounter [facility] US PER DIAG CTR [address] [address] Meeta Olivo DO Abnormal ultrasound; [...] more drinks on one occasion? Never 04/13/2022 [place] Depression Scale Answer Date Recorded [place] Depression Scale Total 1 04/14/2022 The thought [...] C SCREENING 01/14/2022 INFLUENZA VACCINE 11/24/2024 01/29/2016 TDAP/TD VACCINES (4 - Td or Tdap) 02/26/2032 02/25/2022, 08/14/2012, 11/16/2005 RSV Vaccine - Adults (No Dos es Required) Completed Procedures Procedure Name Priority Date/Time Associated Diagnosis Comments [facility] Routine 02/15/2025 2:19 PM EDT Family history of congenital heart defect History of prior with IUGR 25 weeks gestation of [facility] Routine 01/01/2025 11:26 AM EDT Abnormal ultrasound Anomaly of heart of fetus affecting , antepartum, single or unspecified fetus History of delivery, currently , unspecified gestational age from Last 3 Months Results * [facility] (02/15/2025 2:19 PM EDT) Only the most recent of2 resultswithin the time period is included. Anatomical Region Laterality Modality Ultrasound 02/15/2025 1:56 PM EDT Narrative 02/15/2025 2:23 PM EDT PAT NAME: DEBBIE MELARA [facility] REC#: [id number] DA: [id number] PAT GEND: F PAT TYPE: O EXAM ANTONINA: [id number] REF PHYS MEETA OLIVO Comparison Studies The [...] EFW (oz) 10 oz EFW by: Hadlock ([id number]-FL) Extended Cav. septi pel. tr 4.5 mm Hand Alterations Seamstress 4.4 mm Head / Face / Neck [...] here in 4 weeks. Coding ====== Description: 80985-94 Follow Up Ultrasound Description: 12905-97 Doppler Umbilical Artery Description: 50390-14 BPP without NST Miller Helper Distillery: Angela Falcon RDMS Physician: Albert Mcconnell MD, FACOG Electronically signed by: Albert Mcconnell MD, FACOG at: 14:23 Procedure Note Dominic Mcconnell MD - 02/15/2025 PAT NAME: DEBBIE MELARA [facility] REC#: [id number] DA: 1995 PAT GEND: F PAT TYPE: O EXAM ANTONINA: [id number] REF PHYS MEETA OLIVO Comparison Studies The findings of this study are compared to the prior ultrasound studydated 01/01/25 Patient Status Outpatient Indication ======== IUGR. VSD. Maternal Assessment Vcnrcv628 cm Height (ft)5 ft Height (in)1 in Ahnjvf95 kg Weight (lb)129 lb BMI24.67 kg/m Method ======= Transabdominal ultrasound examination ========= Leal . Number of fetuses: 1 Dating ====== Method of dating:based on stated ANNELISE GA by prior [id number] w + 1 d ANNELISE by prior assessment:04/11/2025 Ultrasound examination on:02/15/2025 GA by U/S based upon:AC, BPD, Femur, HC GA by U/S30 w + 5 d ANNELISE by U/S:04/21/2025 Previous dating:based on stated ANNELISE, selected on 01/01/2025 Agreed ANNELISE of previous datin04/11/2025 Assigned:based on stated ANNELISE, selected on 02/15/2025 Assigned GA32 w + 1 d Assigned ANNELISE:04/11/2025 [id number] d Biometry Standard BPD74.8 mm 30w 0d 2% Hadlock LAX734.0 mm 32w 2d 55% Taylor HC281.9 mm 30w 6d 2% Hadlock AC268.1 mm 30w 6d 16% Hadlock Femur59.6 mm 31w 0d 13% Hadlock HC / AC1.05 EFW1,657 g 30w 4d 11% Hadlock EFW (lb)3 lb EFW (oz)10 oz EFW by:Hadlock (EXT-LT-SO-FL) Extended Cav. septi pel. tr4.5 mm Vp4.4 mm Head / Face / Neck Cephalic index0.75 7% Nicolaides Extremities / Bony Struc FL / BPD0.80 FL / HC0.21 FL / AC0.22 Other Structures JNM144 bpm General Evaluation Cardiac activity present. FHR [...] scheduled here in 4 weeks. Coding ====== Description:95167-29 Follow Up Ultrasound Description:60161-12 Doppler Umbilical Artery Description:64524-89 BPP without NST Miller Helper Distillery: Angela Falcon RDMS Physician: Albert Mcconnell MD, FACOG Electronically signed by: Albert Mcconnell MD, FACOG at: 14:23 us Donna Zhang MD IMG US ORDERABLES Final Res ult from Last 3 Months [place] [address] Advance Directives * CPR (Attempt to Resuscitate) [...] or is breathing): Full Support Care Teams Middle School Counselor Relationship Specialty Start Date End Date Provider, No Known [facility] [address] PCP - General 01/14/22
--- OUTSIDE RECORDS SUMMARY | 2025-03-25 15:20 | XMS_ITS | Encounter Summary ---
Author Organization [facility] Address [address] [place] [address] Care Team Providers Care Home Insurance Agent Name Role Phone Provider, No Known Primary [...] more drinks on one occasion? Never 04/13/2022 [place] Depression Scale Answer Date Recorded [place] Depression Scale Total 1 04/14/2022 The thought [...] on filedocumented in this encounter Care Teams Home Insurance Agent Relationship Specialty Start Date End Date Provider, [place] [address] PCP - General 01/14/22 documented as of this encounter
[2025-03-25 15:39] VITALS: BP 128/89; PULSE 97; RESP 18; TEMP 36.9; O2SAT 97; BMI 25.1
== END 2025-03-25 16:07 | disposition home or self-care (01) ==
LOC: OBOUT 15:18 → OB 15:19
PROVIDERS: PCP Nurse Practitioner Family; Visit Provider Nurse Practitioner Obstetrics & Gynecology
DX: Z34.83 Encounter for supervision of other normal pregnancy, third trimester (principal); Z3A.37 37 weeks gestation of pregnancy
CPT/HCPCS: 99212

== ENCOUNTER 2025-03-25 23:16 | Inpatient (IN) | payer MEDICAID, SELFPAY ==
--- OUTSIDE RECORDS SUMMARY | 2025-02-15 12:40 | XMS_ITS | Encounter Summary ---
Author Organization [facility] Address [address] [place] [address] Care Team Providers Care Chisel Grinder Name Role Phone Provider, No Known Primary Care Provider Unavail able Reason for Referral * Diagnostic Imaging (Routine) - Closed Specialty Diagnoses / Procedures Referred By Briana grey Referred To Contact Radiology Diagnoses Family history of congenital heart defect History of prior with IUGR 25 weeks gestation of Procedures [facility] Diagnostic [place] Donna Zhang MD [address] [place] [address] Phone: tel: fax: Referral ID Status Reason Start Date Expiration Date Visits Re quested Visits Authorized [id number] Closed 01/01/2025 04/02/2026 1 1 Reason for Visit * Diagnostic Imaging (Routine) - Closed Specialty Diagnoses / Procedures Referred By Briana grey Referred To Contact Radiology Diagnoses Family history of congenital heart defect History of prior with IUGR 25 weeks gestation of Procedures [facility] Donna Zhang MD [address] [place] [address] Phone: tel: fax: Referral ID Status Reason Start Date Expiration Date Visits Re quested Visits Authorized [id number] Closed 01/01/2025 04/02/2026 1 1 Encounter Details Date Type Department Care Team (Late st Contact Info) Description 02/15/2025 1:40 PM EDT - 02/15/2025 11:59 PM EDT Hospital Encounter [facility] US PER DIAG CTR [address] [place] [address] Donna Zhang MD [address] [place] [address] Family history of congenital heart defect; History [...] more drinks on one occasion? Never 04/13/2022 [place] Depression Scale Answer Date Recorded [place] Depression Scale Total 1 04/14/2022 The thought [...] Procedure Name Priority Date/Time Associated Diagnosis Comments [facility] Routine 02/15/2025 2:19 PM EDT Family history of congenital heart defect History of prior with IUGR 25 weeks gestation of documented in this encounter Results * [facility] (02/15/2025 2:19 PM EDT) Anatomical Region Laterality Modality Ultrasound 02/15/2025 1:56 PM EDT Narrative 02/15/2025 2:23 PM EDT PAT NAME: DEBBIE MELARA [facility] REC#: [id number] DA: [id number] PAT GEND: F PAT TYPE: O EXAM ANTONINA: [id number] REF PHYS MEETA MORGAN Comparison Studies The [...] EFW (oz) 10 oz EFW by: Hadlock (YGE-[id number]-ZG-FL) Extended Cav. septi pel. tr 4.5 mm Physical Laboratory Assistant 4.4 mm Head / Face / Neck [...] here in 4 weeks. Coding ====== Description: 89031-87 Follow Up Ultrasound Description: 62994-42 Doppler Umbilical Artery Description: 25140-04 BPP without NST Medical Surgery Nurse: Angela Falcon RDMS Physician: Albert Mcconnell MD, FACOG Electronically signed by: Albert Mcconnell MD, FACOG at: 14:23 Procedure Note Dominic Mcconnell MD - 02/15/2025 PAT NAME: DEBBIE MELARA [facility] REC#: [id number] DA: [id number] PAT GEND: F PAT TYPE: O EXAM ANTONINA: [id number] REF PHYS MEETA MORGAN Comparison Studies The findings of this study are compared to the prior ultrasound studydated 01/01/25 Patient Status Outpatient Indication ======== IUGR. VSD. Maternal Assessment Libjcg771 cm Height (ft)5 ft Height (in)1 in Hmcpbx01 kg Weight (lb)129 lb BMI24.67 kg/m Method ======= Transabdominal ultrasound examination ========= Leal . Number of fetuses: 1 Dating ====== Method of dating:based on stated ANNELISE GA by prior swftedtula60 w + 1 d ANNELISE by prior assessment:04/11/2025 Ultrasound examination on:02/15/2025 GA by U/S based upon:AC, BPD, Femur, HC GA by U/S30 w + 5 d ANNELISE by U/S:04/21/2025 Previous dating:based on stated ANNELISE, selected on 01/01/2025 Agreed ANNELISE of previous datin04/11/2025 Assigned:based on stated ANNELISE, selected on 02/15/2025 Assigned GA32 w + 1 d Assigned ANNELISE:04/11/2025 bqzzim333 d Biometry Standard BPD74.8 mm 30w 0d 2% Hadlock AAN152.0 mm 32w 2d 55% Taylor HC281.9 mm 30w 6d 2% Hadlock AC268.1 mm 30w 6d 16% Hadlock Femur59.6 mm 31w 0d 13% Hadlock HC / AC1.05 EFW1,657 g 30w 4d 11% Hadlock EFW (lb)3 lb EFW (oz)10 oz EFW by:Hadlock (DQP-GV-ZP-FL) Extended Cav. septi pel. tr4.5 mm Vp4.4 mm Head / Face / Neck Cephalic index0.75 7% Nicolaides Extremities / Bony Struc FL / BPD0.80 FL / HC0.21 FL / AC0.22 Other Structures NFM032 bpm General Evaluation Cardiac activity present. FHR [...] scheduled here in 4 weeks. Coding ====== Description:74706-74 Follow Up Ultrasound Description:61128-52 Doppler Umbilical Artery Description:27627-57 BPP without NST Medical Surgery Nurse: Angela Falcon RDMS Physician: Albert Mcconnell MD, FACOG Electronically signed by: Albert Mcconnell MD, FACOG at: 14:23 us Donna Zhang MD IMG US ORDERABLES Final Res ult documented in this encounter Visit Diagnoses Diagnosis Family history of congenital heart defect History of prior with IUGR 25 weeks gestation of documented in this encounter Care Teams Chisel Grinder Relationship Specialty Start Date End Date Provider, [place] [address] PCP - General 01/14/22 documented as of this encounter
--- OUTSIDE RECORDS SUMMARY | 2025-02-15 13:45 | XMS_ITS | Encounter Summary ---
Author Organization [facility] Address [address] [place] [id number] Care Team Providers Care Lead Cargoman Name Role Phone Provider, No Known Primary Care Provider Unavail able Reason for Referral * Diagnostic Imaging (Routine) - Authorized Specialty Diagnoses / Procedures Referred By Contac t Referred To Contact Radiology Diagnoses History of prior with IUGR Family history of congenital heart defect 32 weeks gestation of Procedures [facility] Dominic Mcconnell MD [address] [facility] [address] [place] [address] Phone: tel: fax: [facility] US PER DIAG [facility] [address] [place] [address] Phone: tel: Referral ID Status Reason Start Date Expiration Date V isits Requested Visits Authorized [id number] Authorized 02/15/2025 05/17/2026 1 1 Reason for Visit * Reason Comments prev c/w CHD Encounter Details Date Type Department Care Team (Late st Contact Info) Description 02/15/2025 2:45 PM EDT Office Visit [facility] MATERNAL MEDICINE [address] [facility] [address] [place] [phone] Dominic Mcconnell MD [address] [facility] [address] [place] [address] History of prior with IUGR (Primary Dx); [...] more drinks on one occasion? Never 04/13/2022 [place] Depression Scale Answer Date Recorded [place] Depression Scale Total 1 04/14/2022 The thought [...] ifshe notices any decreased movement. Orders: - [facility]; Future 2. Family history of congenital heart defect - [facility]; Future 3. 32 weeks gestation of - [facility]; Future Follow Up [...] or CVS. Dominic Mcconnell MD Maternal Medicine, [facility] [place] 02/15/2025 * Dominic Mcconnell MD - 02/15/2025 [...] of documented in this encounter Care Teams Lead Cargoman Relationship Specialty Start Date End Date Provider, [place] [address] PCP - General 01/14/22 documented as of this encounter
--- OUTSIDE RECORDS SUMMARY | 2025-03-25 21:09 | XMS_ITS | Clinical Summary ---
Author Organization [facility] Address [address] [place] [address] Care Team Providers Care Regrind Mill Operator Name Role Phone Provider, No Known [...] Description 02/15/2025 2:45 PM EDT Office Visit [facility] [address] [phone] Dominic Mcconnell MD History of prior with IUGR (Primary Dx); Family history of congenital heart defect; 32 weeks gestation of 02/15/2025 1:40 PM EDT - 02/15/2025 11:59 PM EDT Hospital Encounter [facility] US PER DIAG CTR [address] [place] [phone] Donna Zhang MD Family history of congenital heart defect; History of prior with IUGR ; 25 weeks gestation of Discharge Disposition: Home or Self Care 02/15/2025 Travel 01/01/2025 10:30 AM EDT Office Visit [facility] [address] [phone] Donna Zhang MD Family history of congenital heart defect (Primary Dx); History of prior with IUGR ; 25 weeks gestation of 01/01/2025 10:13 AM EDT - 01/01/2025 11:59 PM EDT Hospital Encounter [facility] US PER DIAG CTR [address] [place] [address] Meeta Olivo DO Abnormal ultrasound; [...] more drinks on one occasion? Never 04/13/2022 [place] Depression Scale Answer Date Recorded [place] Depression Scale Total 1 04/14/2022 The thought [...] Name Priority Date/Time Associated Diagnosis Comments [facility] Routine 02/15/2025 2:19 PM EDT Family history of congenital heart defect History of prior with IUGR 25 weeks gestation of [facility] Routine 01/01/2025 11:26 AM EDT Abnormal ultrasound Anomaly of heart of fetus affecting , antepartum, single or unspecified fetus History of delivery, currently , unspecified gestational age from Last 3 Months Results * [facility] (02/15/2025 2:19 PM EDT) Only the most recent of2 resultswithin the time period is included. Anatomical Region Laterality Modality Ultrasound 02/15/2025 1:56 PM EDT Narrative 02/15/2025 2:23 PM EDT PAT NAME: DEBBIE MELARA [facility] REC#: [id number] DA: [id number] PAT GEND: F PAT TYPE: O EXAM ANTONINA: [id number] REF PHYS MEETA OLIVO Comparison Studies The [...] EFW (oz) 10 oz EFW by: Hadlock ([id number]-FL) Extended Cav. septi pel. tr 4.5 mm Eight Arm Operator 4.4 mm Head / Face / [...] here in 4 weeks. Coding ====== Description: 01992-16 Follow Up Ultrasound Description: 03995-15 Doppler Umbilical Artery Description: 77764-85 BPP without NST Domain Architect: Angela Falcon RDMS Physician: Albert Mcconnell MD, FACOG Electronically signed by: Albert Mcconnell MD, FACOG at: 14:23 Procedure Note Dominic Mcconnell MD - 02/15/2025 PAT NAME: DEBBIE MELARA MED REC#: [id number] DA: 1995 PAT GEND: F PAT TYPE: O EXAM ANTONINA: [id number] REF PHYS MEETA OLIVO Comparison Studies The findings of this study are compared to the prior ultrasound studydated 01/01/25 Patient Status Outpatient Indication ======== IUGR. VSD. Maternal Assessment Dvvwbn227 cm Height (ft)5 ft Height (in)1 in Ayjkod48 kg Weight (lb)129 lb BMI24.67 kg/m Method ======= Transabdominal ultrasound examination ========= Leal . Number of fetuses: 1 Dating ====== Method of dating:based on stated ANNELISE GA by prior [id number] w + 1 d ANNELISE by prior assessment:04/11/2025 Ultrasound examination on:02/15/2025 GA by U/S based upon:AC, BPD, Femur, HC GA by U/S30 w + 5 d ANNELISE by U/S:04/21/2025 Previous dating:based on stated ANNELISE, selected on 01/01/2025 Agreed ANNELISE of previous datin04/11/2025 Assigned:based on stated ANNELISE, selected on 02/15/2025 Assigned GA32 w + 1 d Assigned ANNELISE:04/11/2025 [id number] d Biometry Standard BPD74.8 mm 30w 0d 2% Hadlock FZR089.0 mm 32w 2d 55% Taylor HC281.9 mm 30w 6d 2% Hadlock AC268.1 mm 30w 6d 16% Hadlock Femur59.6 mm 31w 0d 13% Hadlock HC / AC1.05 EFW1,657 g 30w 4d 11% Hadlock EFW (lb)3 lb EFW (oz)10 oz EFW by:Hadlock ([id number]-OH-KA-FL) Extended Cav. septi pel. tr4.5 mm Vp4.4 mm Head / Face / Neck Cephalic index0.75 7% Nicolaides Extremities / Bony Struc FL / BPD0.80 FL / HC0.21 FL / AC0.22 Other Structures YXS469 bpm General Evaluation Cardiac activity present. FHR [...] scheduled here in 4 weeks. Coding ====== Description:48403-49 Follow Up Ultrasound Description:27340-28 Doppler Umbilical Artery Description:72556-51 BPP without NST Domain Architect: Angela Falcon RDMS Physician: Albert Mcconnell MD, [...] or is breathing): Full Support Care Teams Regrind Mill Operator Relationship Specialty Start Date End Date Provider, No Known [facility] [place] [address] PCP - General 01/14/22
--- OUTSIDE RECORDS SUMMARY | 2025-03-25 21:09 | XMS_ITS | Encounter Summary ---
Author Organization [facility] Address [address] [place] [address] Care Team Providers Care Hand Ii Cutter Name Role Phone Provider, No Known Primary [...] more drinks on one occasion? Never 04/13/2022 [place] Depression Scale Answer Date Recorded [place] Depression Scale Total 1 04/14/2022 The thought [...] on filedocumented in this encounter Care Teams Hand Ii Cutter Relationship Specialty Start Date End Date Provider, [place] [address] PCP - General 01/14/22 documented as of this encounter
[2025-03-25 21:10] VITALS: BP 125/72; PULSE 90; RESP 18; TEMP 36.8; O2SAT 99; BMI 25.1
[2025-03-25 21:20] VITALS: BMI 25.1
[2025-03-25 21:46] LABS: Hematocrit 34.9 % (37.0-47.0); Hemoglobin 11.2 g/dL (12.2-16.2); Immature Granulocytes % 0.5 %; Mean Corpuscular HGB Conc 32.1 g/dL (31.8-35.4); Mean Corpuscular Hemoglobin 28.3 pg (27.0-31.2); Mean Corpuscular Volume 88.1 fl (81-99); Nucleated Red Blood Cells % 0 %; Platelet Count 133 K/mm3 (142-424); Red Blood Count 3.96 M/mm3 (4.20-5.40); Red Cell Distribution Width-SD 63.7 fL; White Blood Count 8.6 K/mm3 (4.8-10.8)
--- NOTE | 2025-03-25 22:23 | EXP.HP ---
History of Present Illness *Admission Date: 03/25/25 *Reason for visit:: Active labor, regular contractions *History of present illness: She is a 30-year-old 6 para 3 aborta 2 who is 37 and 4 weeks gestational age. She has been followed throughout the for small for gestational age . Both the head and femur length are small. The AC is normal. She arrived here in labor and delivery in active labor and was found to be 5 cm dilated. Earlier today she was 4 cm dilated. She is soni every 2 to 3 minutes. Her membranes are intact. A Rh+ blood Rubella immune Group B streptococcus negative. [facility] Disclaimer: The information contained in this section may have been updated after the patient was seen, as this information can be updated by other users. Medical History SGA (small for gestational age), , affecting care of mother, antepartum Anemia affecting Placenta succenturiata, antepartum Abnormal ultrasound Asthma affecting , antepartum History of delivery, currently Scoliosis ventricular septal defect in , antepartum, single gestation IUGR (intrauterine growth restriction) Restless legs Surgical History No history of previous surgery Family History Diabetes Cancer Hypertension Stroke Social History Smoking Status: Never smoker alcohol intake: never substance use type: denies use current occupational status: other Travel in the last 8 weeks?: None Have you lived/traveled outside US in past 30 days?: No Contact w/someone who lives/traveled outside US past 30 days?: No Exposure to someone with infectious disease in past 14 days?: No Do you have a fever (greater than 100.4 F or 38 C)?: No Have you tested positive for COVID-19?: No Exposed to someone with COVID-19 in past 14 days?: No Do you have a sore throat?: No Do you have a cough?: No Do you have any weakness?: No Do you have any diarrhea?: No Are you experiencing any unusual bleeding?: No Do you have any muscle aches/pain?: No Do you have any abdominal pain?: No Are you experiencing loss of taste or smell?: No Other Medical History Have you received the Flu Vaccine for this season: No Have you received the Pneumonia Vaccine: No Review of Systems Review of Systems Review of systems:: pertinent systems reviewed and negative unless documented below Meds Home Medications and Allergies Home Medications ?Medication ?Instructions ?Recorded ?Confirmed ?Type albuterol sulfate 2.5 mg/3 mL 2.5 mg (3 mL) inhalation Q4-6H PRN 04/05/24 03/19/25 Rx (0.083 %) solution for nebulization shortness of breath or wheezing #75 mL albuterol sulfate 90 mcg/actuation 2 puff inhalation Q4-6H PRN 04/05/24 03/19/25 Rx aerosol inhaler shortness of breath or wheezing #6.7 grams ondansetron 4 mg disintegrating 4 mg PO Q8H PRN nausea and 08/21/24 03/19/25 Rx tablet vomiting 10 days #30 tabs cyclobenzaprine 10 mg tablet 10 mg PO NEEDED PRN muscle 09/07/24 03/19/25 History spasms famotidine 20 mg tablet 20 mg PO DAILY #30 tabs 03/05/25 03/19/25 Rx New Prescriptions to Start Prescriptions: Allergies Allergy/AdvReac Type Severity Reaction Status Date / Time nitrofurantoin (From AdvReac shaking Verified 03/19/25 13:23 Macrobid) and shortness of breath Exam Data for Last 24 hours Vital signs and Labs for Last 24 Hours: Temp Pulse Resp BP Pulse Ox O2 Del Method 98.3 F 90 18 125/72 99 Room Air 03/25/25 21:10 03/25/25 21:10 03/25/25 21:10 03/25/25 21:10 03/25/25 21:10 03/25/25 21:10 Laboratory Results - last 24 hr 03/25/25 21:20: WBC 8.6 D, RBC 3.96 L, Hgb 11.2 L, Hct 34.9 L, MCV 88.1, MCH 28.3, MCHC 32.1, RDW 20.2 H, Plt Count 133 L, MPV 11.5 H, Neut % (Auto) 68.9, Lymph % (Auto) 21.7, [place] % (Auto) 8.1, Eos % (Auto) 0.6, Baso % (Auto) 0.2, Neut # (Auto) 5.9, Lymph # (Auto) 1.9, [place] # (Auto) 0.7, Eos # (Auto) 0.1, Baso # (Auto) 0.0 I & O for Last 24 hours: Intake & Output 03/23/25 03/24/25 03/25/25 03/26/25 11:59 11:59 11:59 11:59 Weight 133 lb Constitutional Constitutional: no acute distress *Routine HEENT Exam Head: Present normocephalic Eye: Present EOMI and PERRL ENT: Present mucous membranes moist *Routine Neck Exam Neck: Present supple; Absent lymphadenopathy *Routine Respiratory Exam Respiratory: Present CTA bilaterally *Routine Cardiovascular Exam Cardiovascular: Present RRR *Routine Abdominal Exam Abdominal: Present soft and normoactive bowel sounds; Absent tenderness *Routine Rectal Exam Rectal:: deferred *Routine Genitalia Exam Genitalia:: deferred *Routine Extremities Exam Extremities: Absent cyanosis, clubbing or edema *Routine Skin Exam Skin: Present warm; Absent rash *Routine Neurological Exam Neurological: Present alert and oriented X3 Assessment and Plan *Assessment and plan (1) SGA (small for gestational age), , affecting care of mother, antepartum: Status: Acute Qualifiers: Fetus number: single or unspecified fetus Qualified Code(s): O36.5990 - Maternal care for other known or suspected poor growth, unspecified trimester, not applicable or unspecified Category: Medical Code(s): O36.5990 - Maternal care for other known or suspected poor growth, unspecified trimester, not applicable or unspecified (2) labor in third trimester: Status: Acute Qualifiers: labor delivery status: with term delivery Fetus number: single or unspecified fetus Qualified Code(s): O60.23X0 - Term delivery with labor, third trimester, not applicable or unspecified Category: Medical Code(s): O60.03 - labor without delivery, third trimester Plan 1. She is admitted in active labor with changes in her cervix. 2. She is soni every 2 to 3 minutes and quite uncomfortable. 3. She would like an epidural. 4. We anticipate a vaginal delivery.
[2025-03-25] MEDS: LACTATED RINGERS 1000ML 1,000 ML 500 ML IV ×2 (22:25→22:26)
--- NOTE | 2025-03-25 22:28 | EXP.LABOR.NO ---
Labor Note Subjective: Date: 03/25/25 Time: 22:28 regular contraction Objective: NST:: Reactive Contractions:: every 2-3 minutes Cervical Dilation:: 4-5 Effacement:: 50% Station: -2 Membranes: artificially ruptured Fetus: Monitoring?: Yes monitoring type:: External Assessment: Labor progressing?: Yes Cephalopelvic disproportion?: No Plan: Anesthesia for epidural?: Yes Continue to labor down?: Yes Plan for ?: No Continue to monitor?: Yes Start pushing?: No Comment:: She is currently in active labor and has changed her cervix. We will anticipate a vaginal delivery. Her membranes are ruptured and there is clear fluid.
[2025-03-25 23:46] LABS: Bilirubin,Urine Negative (Negative); Color,Urine YELLOW (Yellow); Glucose,Urine (UA) Negative (Negative); Ketones,Urine 3+ (Negative); Leukocyte Esterase,Urine Negative (Negative); PH,Urine 6.5 (5.0-8.5); Protein,Urine Negative (Negative); Specific Gravity, Urine <= 1.005 (1.005-1.030); Urobilinogen,Urine 0.2 EU/dl (0.2)
[2025-03-25 23:53] LABS: Microscopic, Urine URINE MICROSCOPIC (MICROSCOPIC)
[2025-03-26] MEDS: ONDANSETRON 4MG/2ML VIAL 4 MG IV (00:20)
[2025-03-26] MEDS: OXYTOCIN/RINGERS LACTATE 30 UNITS/500 ML BAG 999 UNITS IV (00:49)
--- NOTE | 2025-03-26 01:02 | EXP.DN ---
Delivery Note Delivery Date:: 03/26/25 Delivery Time:: 00:47 Anesthesia Type: Epidural Was labor medically induced?: No Induction method: none Gestational age (weeks): 37 Infant delivered prior to 39 weeks?: Yes Justification for early elective delivery:: Active Labor Gender: Male at 1 minute: 9 at 5 minutes: 9 Delivery Procedure:: She is a 35-year-old 6 now para 4 aborta 2 who is 37 weeks gestational age. She arrived in active labor and was found to be 5 cm dilated. She subsequently had her membranes ruptured and under labor epidural progressed to full dilation. She delivered spontaneously a liveborn male child at 12:47 on the morning of March 26, 2025. She received IV oxytocin using gentle traction according countertraction on the fundus she did deliver the placenta 10 minutes after delivery. After delivery of the head the oropharynx and nasopharynx were bulb suction followed by delivery of the rest the 's body atraumatically. The baby cried spontaneously and was vigorous so we allowed the cord to continue to pulsate for approximately 1 minute. The cord was then doubly clamped and cut and the infant was placed on the mother's abdomen for further care. The nurses assigned Apgars of 9 at 1 minute and 9 at 5 minutes. There were no perineal or vaginal lacerations. Estimated blood loss was approximately 100 cc. Placental Delivery Description: Expressed
[2025-03-26] MEDS: BENZOCAINE-MENTHOL SPRAY 56GM CAN TP (01:53)
[2025-03-26] MEDS: WITCH HAZEL 40 PADS/BOX 1 EACH TP (01:53)
[2025-03-26 04:00] VITALS: BP 108/59; PULSE 80; RESP 17; TEMP 36.7
[2025-03-26] MEDS: IBUPROFEN 400 MG TABLET 800 MG PO ×2 (04:30→12:50)
[2025-03-26] MEDS: ACETAMINOPHEN 500MG TAB 1000 MG PO ×2 (05:46→12:49)
[2025-03-26 08:12] VITALS: BP 114/59; PULSE 70; RESP 16; TEMP 36.8; O2SAT 97
[2025-03-26 12:12] LABS: RPR W/RFX Titers Nonreactive (Nonreactive)
[2025-03-26 16:10] LABS: Hematocrit 30.9 % (37.0-47.0)
[2025-03-26 16:16] LABS: Hemoglobin 9.6 g/dL (12.2-16.2)
[2025-03-26 19:58] VITALS: BP 120/67; PULSE 71; RESP 18; TEMP 36.7; O2SAT 97
[2025-03-27] MEDS: IBUPROFEN 400 MG TABLET 800 MG PO ×2 (01:10→09:02)
[2025-03-27] MEDS: ACETAMINOPHEN 500MG TAB 1000 MG PO ×2 (01:10→09:02)
[2025-03-27 04:20] VITALS: BP 106/58; PULSE 74; RESP 16; TEMP 36.7; O2SAT 98
[2025-03-27 09:04] VITALS: BP 112/68; PULSE 78; RESP 16; TEMP 36.8; O2SAT 97
--- NOTE | 2025-03-27 11:05 | P.DS_ITS ---
General Admission date:: 03/25/25 Discharge date: 03/27/25 HPI HPI HPI: PPD # 1 s/p Feeling well. Pain controlled. Formula feeding. Lochia is light. Voiding without difficulty and passing flatus. Tolerating regular diet. Denies fever/chills, chest pain and shortness of breath. No headaches, vision changes, lightheadedness/dizziness. No lower extremity swelling. Ambulating well ad jacqueline. Hospital Course Hospital Course Hospital Course: She is a 30-year-old 6 para 3 aborta 2 who is 37 and 4 weeks gestational age. She has been followed throughout the for small for gestational age . Both the head and femur length are small. The AC is normal. She arrived here in labor and delivery in active labor and was found to be 5 cm dilated. Earlier today she was 4 cm dilated. She is soni every 2 to 3 minutes. Her membranes are intact. She had a spontaneous vaginal delivery on 03/26/25 at 0047. She delivered a live male baby, Hansel, weighing 6 lb 11 oz. Apgars 9 (1 min), 9 (5 min). EBL 100 mL. She did well . Pain controlled. Formula feeding. Light lochia. Voiding without difficulty and passing flatus. Tolerating regular diet. Denies fever/chills, chest pain and shortness of breath. No headaches, dizziness/lightheadedness or vision changes. Vital signs stable, afebrile. Heart regular rate and rhythm. Lungs clear to auscultation. Abdomen soft, nontender. No lower extremity swelling. Ambulating well ad jacqueline. Normal hospital course. She was discharged to home on PPD # 1 with instructions to follow-up in the office in 2 weeks or sooner if needed. Exam Data for Last 24 hours Vital signs and Labs for Last 24 Hours: Temp Pulse Resp BP Pulse Ox O2 Del Method 98.1 F 74 16 106/58 L 98 Room Air 03/27/25 04:20 03/27/25 04:20 03/27/25 04:20 03/27/25 04:20 03/27/25 04:20 03/27/25 04:20 Laboratory Results - last 24 hr 03/25/25 21:20: RPR w/Rflx to Titer Nonreactive 03/26/25 16:02: Hgb 9.6 L D, Hct 30.9 L I & O for Last 24 hours: Intake & Output 03/24/25 03/25/25 03/26/25 03/27/25 23:59 23:59 23:59 23:59 Intake Total 1000 / 1000 1472.417 / 1472.417 Output Total 800 / 800 Balance 200 / 200 1472.417 / 1472.417 Weight 133 lb Constitutional Constitutional: no acute distress and cooperative *Routine HEENT Exam Head: Present normocephalic and atraumatic Eye: Absent conjunctivae pink ENT: Present mucous membranes moist *Routine Neck Exam Neck: Present full ROM *Routine Respiratory Exam Respiratory: Present CTA bilaterally and normal respiratory effort *Routine Cardiovascular Exam Cardiovascular: Present RRR *Routine Abdominal Exam Abdominal: Present soft; Absent tenderness or distended *Routine Rectal Exam Patient deferred: visual exam *Routine Exam Patient deferred: external exam *Routine Extremities Exam Extremities: Present full ROM; Absent edema or calf tenderness *Routine Neurological Exam Neurological: Present alert, moving all extremities and normal speech Routine Psychiatric Exam Psychiatric: Present normal affect and cooperative Results Data Completed and Pending Labs on day of discharge: Labs from last 24 hours 03/26/25 03/25/25 16:02 21:20 Hgb 9.6 L D Hct 30.9 L RPR w/Rflx to Titer Nonreactive DS: Diagnosis Discharge Diagnosis (1) Status post vaginal delivery: Status: Acute (2) SGA (small for gestational age), , affecting care of mother, antepar dina: Status: Acute Code(s): O36.5990 - Maternal care for other known or suspected poor growth, unspecified trimester, not applicable or unspecified Qualifiers: Fetus number: single or unspecified fetus Qualified Code(s): O36.5990 - Maternal care for other known or suspected poor growth, unspecified trimester, not applicable or unspecified (3) labor in third trimester: Status: Acute Code(s): O60.03 - labor without delivery, third trimester Qualifiers: labor delivery status: with term delivery Fetus number: single or unspecified fetus Qualified Code(s): O60.23X0 - Term delivery with labor, third trimester, not applicable or unspecified (4) Anemia affecting : Status: Acute Code(s): O99.019 - Anemia complicating , unspecified trimester Qualifiers: Trimester: third trimester Qualified Code(s): O99.013 - Anemia complicating , third trimester Meds Home Medications and Allergies Home Medications ?Medication ?Instructions ?Recorded ?Confirmed ?Type albuterol sulfate 90 mcg/actuation 2 puff inhalation Q 4-6H PRN 04/05/24 03/25/25 Rx aerosol inhaler shortness of breath or wheez ing #6.7 grams famotidine 20 mg tablet 20 mg PO DAILY #30 tabs 02/2403/25/25 Rx ibuprofen 400 mg tablet 800 mg (2 x 400 mg) PO Q8HP PRN 03/27/25 Rx Mild To Moderate Pain (1-6) #40 tabs New Prescriptions to Start Prescriptions: Luna Merchant Allergies Allergy/AdvReac Type Severity Reaction Status Date / Time nitrofurantoin (From AdvReac shaking Verified 03/25/25 23:13 Macrobid) and shortness of breath Discharge Plan Disposition Patient Disposition: Home, Self-Care Condition: Good Discharge Order Discharge Orders: Discharge Order (Routine); Ordered 03/27/25 Ordered By: Luna Olivo Follow up Plan Follow up with: Luna Olivo DO [Staff Physician, [employer]] - 2 weeks Prescriptions/Medication Reconciliation: New ibuprofen 400 mg Tablet 800 mg PO Q8HP PRN (Reason: Mild To Moderate Pain (1-6)) Qty: 40 0RF Continued albuterol sulfate 90 mcg/actuation HFA aerosol inhaler 2 puff inhalation Q4-6H PRN (Reason: shortness of breath or wheezing) Qty: 6.7 1RF famotidine 20 mg tablet 20 mg PO DAILY Qty: 30 1RF Problem Reconciliation Problems Reviewed?: Yes Patient Discharge Instructions ACTIVITY: Limited activity DIET: continue same diet and regular diet Additional Instructions: Discharge: 1. Take 800 mg Ibuprofen every 8 hours as needed for pain. You can also take 500-1000 mg of Tylenol in between doses, every 6-8 hours. 2. Nothing in the vagina for 6 weeks - no intercourse, douching or tampons. No tub baths/hot tubs or swimming pools 3. Reasons to return to L&D or call On-Call doctor - fever (greater than 100.4) - heavy vaginal bleeding (soaking through 1 pad in less than 2 hours) - vaginal discharge (malodorous and/or purulent) - severe headaches not resolved by medication or rest 4. depression/blues - Normal to feel anxious/overwhelmed for first 2 weeks - Talk to your doctor if: severe anxiety, trouble bonding with baby, withdrawing from other family members, thoughts of harming yourself or others Luna Olivo DO [facility] [phone] Print Language: Slovenian Providers Primary Care Provider: Ashley Crowley Admit Provider: Viet Mcdonald Attending Provider: Viet Mcdonald
== END 2025-03-27 12:38 | disposition home or self-care (01) | DRG 805 ==
LOC: OBOUT 23:17 → OB 23:17
PROVIDERS: Obstetrics & Gynecology; Admitting Provider Nurse Practitioner Obstetrics & Gynecology; PCP Nurse Practitioner Family; Visit Provider Nurse Practitioner Obstetrics & Gynecology
DX: O36.5930 Maternal care for other known or suspected poor fetal growth, third trimester, not applicable or unspecified (principal); O60.23X0 Term delivery with preterm labor, third trimester, not applicable or unspecified; Z37.0 Single live birth; Z3A.37 37 weeks gestation of pregnancy; O99.02 Anemia complicating childbirth; Z23 Encounter for immunization; Z88.1 Allergy status to other antibiotic agents; Z79.899 Other long term (current) drug therapy
CPT/HCPCS: 36415; 51702; 59025; 81001; 85014; 85018; 85025; 86592; 86850; 94761; J2405; J2795; J3010; J7120